=== PATIENT | female | born 1995 | race Caucasian/White ===

== ENCOUNTER 2019-03-12 09:48 | Inpatient (IN) | payer SELFPAY ==
[2019-03-12] VITALS (17 sets, daily range): BP systolic 91–177; BP diastolic 52–115; PULSE 70–99; RESP 14–21; TEMP 36.1–37.1; O2SAT 96–100; BMI 29.2
--- NOTE | 2019-03-12 | PLAC_PTH ---
PATIENT: ROBIN ORTEGA LOC: [facility] U#:[id number] AGE/SX: 24/F ROOM: [facility]012 RE03/12/[address]: Dr. Oly Adams MD : [id number] BED: 1 DIS: 03/14/2019 SPEC #: [id number] RECD: 03/12/19 15:29 STATUS: JESSICA CANELO #: [id number] ARTHUR: 03/12/19 00:[address]: Oly Adams DEPT: SURGICAL PATHOLOGY RECD BY: Mukesh Flor Tissues: Placenta, NOS Procedures: Surgery Specimen Level V HEADER OPERATION: section PRE-OP DIAGNOSIS: Eclampsia TISSUE SUBMITTED: Placenta MICROSCOPIC DIAGNOSIS Chiu placenta (597 gm): Umbilical cord - trivascular with no inflammation. Placental membranes - no pathologic change. Placental disc - remote infarct, organizing intraparenchymal hemorrhage and Sandrine-Rahul change. AM:jie 03/15/19 MICROSCOPIC DESCRIPTION Slides are reviewed. GROSS DESCRIPTION SPECIMEN: PLACENTA / CLINICAL INFORMATION: A. Weight: 4.336 kg B. Gestational Age: 40 weeks C. Sex: Male PLACENTAL WEIGHT (POST FIXATION): 597 gm PLACENTAL DIMENSIONS: 18 x 17.5 x 3 cm PLACENTAL SHAPE: Usual ovoid PLACENTAL WEIGHT FOR GESTATIONAL AGE: Within 10-99th percentile MEMBRANES - Present A. Insertion: Marginal B. Site of rupture from edge: At of placental disc C. Color of membrane: Taylor-mak D. Abnormalities: None UMBILICAL CORD - Present A. Color: Taylor-mak B. Insertion: Eccentric C. Length: 43 cm D. Diameter: 1.5 cm E. Number of vessels: Three F. Abnormalities: None PLACENTAL DISC - Present A. Color of surface: Taylor-mka B. surface abnormalities: None C. Maternal cotyledons: Intact with minimal tears D. Attached retro placental clot: No clot E. Cut surface: Dark red and spongy F. Lesions: Two taylor-white lesions ranging in size from 1 to 2.5 cm. G. Separate clot: Absent SECTIONS SUBMITTED: 1. Umbilical cord ( end notched) 2. Membrane roll, lesion 3. Placental disc, and maternal surfaces 4. Placental disc, and maternal surfaces 5. Placental disc, and maternal surfaces, largest lesion AM:jie 03/14/19 TC:5 CPT: 63983
[2019-03-12] MEDS: Lactated Ringers 1,000 ML 999 ML IV (09:50)
[2019-03-12] MEDS: Midazolam 2 MG/2 ML Syringe IV (10:10)
[2019-03-12 10:14] LABS: Absolute Lymphocyte Count 2.42 X10^3/ul (0.83-4.51); Absolute Neutrophil Count 12.5 X10^3/uL (2.0-7.7); Basophil# 0.02 X10^3/uL; Basophil% 0.1 % (0-1); Hematocrit 39.9 % (37-47); Hemoglobin 13.8 g/dl (12.0-15.0); Lymphocyte # 2.42 X10^3/ul (4.0); Lymphocyte % 15.4 % (19-41); Mean Corp Hgb Conc 34.6 g/gl (32-36); Mean Corpuscular Hgb 31.7 pg (27.0-32.0); Mean Corpuscular Volume 91.5 fL (81-99); Mean Platelet Vol. 11.5 fl (6.2-12.0); Monocyte# 0.73 X10^3/uL; Monocyte% 4.6 % (0-10); Neutrophil # 12.48 X10^3/uL (2.7-7.7); Neutrophil % 79.3 % (47-70); Platelet Count 181 K/mm3 (150-450); RBC Distribution Width CV 12.8 % (11.6-14.6); RBC Distribution Width SD 42.5 fl (35.1-43.9); Red Blood Count 4.36 M/mm3 (4.2-5.4); White Blood Count 15.8 K/mm3 (4.4-11.0)
[2019-03-12 10:16] LABS: POSITIVE COUNT NO; POSITIVE DIFFERENTIAL NO; POSITIVE MORPHOLOGY NO
[2019-03-12 10:24] LABS: Prothrombin Time (Protime)PT. 13.2 SECONDS (11.7-14.9)
[2019-03-12] MEDS: Magnesium Sulfate 20 GM/500 ML BAG IV ×2 (10:26→20:41)
[2019-03-12 10:27] LABS: AST(SGOT) 39 U/L (15-37); Alanine Aminotransfer ALT/SGPT 39 U/L (13-56); Creatinine, Serum 0.94 mg/dL (0.55-1.02); EST Glomerular Filtration Rate 78 mL/min (>60); Est Glom Filt Rate - Afr Amer 95 mL/min (>60); Uric Acid 6.2 mg/dL (2.6-6.0)
[2019-03-12 10:33] LABS: ALB/GLOB Ratio 0.7 RATIO (0.9-2.4); AST(SGOT) 37 U/L (15-37); Alanine Aminotransfer ALT/SGPT 40 U/L (13-56); Albumin, Serum 3.1 g/dL (3.2-5.0); Alkaline Phosphatase 222 U/L (45-117); Anion Gap 15 (5-15); BUN 11 mg/dL (7-18); BUN/Creat Ratio 11.4 RATIO (10-20); Calcium,Total 8.3 mg/dL (8.5-10.1); Chloride 108 mmol/L (98-107); Creatinine, Serum 0.96 mg/dL (0.55-1.02); EST Glomerular Filtration Rate 76 mL/min (>60); Est Glom Filt Rate - Afr Amer 92 mL/min (>60); Globulin 4.2 g/dL (2.2-4.2); Glucose 105 mg/dL (74-106); Potassium 3.2 mmol/L (3.5-5.1); Protein, Total 7.3 g/dL (6.4-8.2); Sodium Level 137 mmol/L (136-145)
[2019-03-12] MEDS: CHLORHEXIDINE GLUC 2% CLOTH 1 EACH TOWELETTE TOPICAL (10:50)
[2019-03-12 10:51] LABS: Bacteria 0 SEEN /hpf (None Seen); Mucous, Urine 0 SEEN /hpf (<or=2+); Red Blood Cells-Urine 0 SEEN /hpf (0-5); Squamous Epithelial Cells - UA 0 SEEN /hpf (5-10); White Blood Cells 0 SEEN /hpf (0-5)
--- NOTE | 2019-03-12 10:55 | PCM.HP.OB ---
- Problem List (1) Eclampsia Status: Acute History Date of Admission: 03/12/19 Final MICHAEL: 03/11/19 Gestational age: 40 Weeks and 1 Days History of this : This is a 24 year-old, at 40 weeks gestational age presents with eclampsia. Patient received care from a exhibit display representative in the community and had had no issues during the prior to the onset of labor yesterday. Patient presented with spontaneous rupture of membranes at 4 AM yesterday and began isaac yesterday evening. Patient was monitored by the exhibit display representative and this morning started to have headache and blood pressure was checked and noted to be 170/130 so the exhibit display representative called to transfer care to the hospital. Upon presentation to the hospital patient began actively seizing. She was caught by her and the wire turning machine operator and then supportive staff arrived. IV was started almost immediately and 6 g bolus of IV magnesium was given and during the end of the bolus patient had a repeat seizure for 2-1/2 minutes. 2 mg of Versed was given IV x1 due to the recurrent seizure and the magnesium was running at 2 g an hour now. heart rate initially was in the 85-90s medially after the first seizure and then recovered into the 130s. Bedside ultrasound was performed and the infant was noted to be vertex and the heart rate was confirmed visually and breathing was also noted at this time. heart rate tracing was reassuring. There were no decelerations with the recurrent seizure. Allergies No Known Allergies Allergy (Verified 03/12/19 10:44) Smoking Status: Never smoker Alcohol: None Number of Fetus(es): 1 Heart Tracins moderate variability positive acceleration and positive breathing seen on initial ultrasound. Initial deceleration with good recovery afterwards and now a category 1 tracing. [place]: No regular contractions internal monitors placed History Past Pregnancies: Past Pregnancies Delivery Date Name GA/Weeks Outcome Route Weight Gender Labor Length Anesthesia Delivery Location Provider FOB Expected Delivery Method: Primary Section Review of Systems Constitutional: Denies: Fever, Malaise Eyes: Denies: Blurred vision, Vision Change HEENT: Reports: Head Aches. Denies: Visual Changes Respiratory: Denies: Cough, Shortness of Breath, Wheezing Gastrointestinal: Reports: Abdominal Pain. Denies: Diarrhea, Nausea, Vomiting Genitourinary: Denies: Dysuria, Hematuria Gynecological: Reports: Vaginal discharge. Denies: Vaginal bleeding Musculoskeletal: Denies: Joint Pain, Muscle pain Skin: Denies: Lesions, Rash Neurological: Reports: Headaches. Denies: Blurred vision, Focal weakness Physical Exam General: Confused, Disoriented, Lethargic HEENT: Atraumatic, Normocephalic, - - Bilateral pupils dilated. Negative for: Thyromegaly, Lymphadenopathy Cardiovascular: Tachycardic Lungs: Normal air movement Abdomen: Soft, Non Tender, Gravid Neurological: Neuro grossly intact. Negative for: Deep Tendon Reflexes 2+/4 and Symmetrical - 3+ reflexes no clonus, Clonus BOOMSWING OPERATOR: Normal external genitalia. Negative for: Vulvar lesions Estimated gestational size: Appropriate for gestational size Presentation: Cephalic Cervix Dilation (cm): 4 - 70 Station: -1 Effacement (%): 70 Assessment/Plan All Active Problems Eclampsia (Acute) This is a 24 year-old, at 37 weeks gestational age presents with eclampsia Patient given 6 g magnesium bolus followed by 2 g an hour of magnesium. 2 IV lines started and scalp and IUPC placed. Initial blood pressure was severely elevated and she was given 20 mg of IV labetalol. Patient had recurrent seizure during the end of the 6 g bolus for 2-1/2 minutes therefore 2 mg of Versed IV was given. No bradycardia was noted during the second seizure. Called and discussed case with maternal medicine and discussed with exhibit display representative and the family about decision for expectant management versus proceeding with a primary . Due to the recurrent seizure and patient is not currently isaac and may be remote from delivery, the decision was made to proceed with a primary low transverse . I discussed with the family the ability to provide a trial of labor after for her next will be very reasonable. Proceed with delivery and then will continue magnesium for 24-48 hours after delivery and monitor blood pressures. I recommend a CT scan of the head which I will also order
--- NOTE | 2019-03-12 10:59 | HP.PCM_ITS ---
- Problem List (1) Eclampsia Status: Acute History Date of Admission: 03/12/19 Final MICHAEL: 03/11/19 Gestational age: 40 Weeks and 1 Days History of this : This is a 24 year-old, at 40 weeks gestational age presents with eclampsia. Patient received care from a visual display associate in the community and had had no issues during the prior to the onset of labor yesterday. Patient presented with spontaneous rupture of membranes at 4 AM yesterday and began isaac yesterday evening. Patient was monitored by the visual display associate and this morning started to have headache and blood pressure was checked and noted to be 170/130 so the visual display associate called to transfer care to the hospital. Upon presentation to the hospital patient began actively seizing. She was caught by her and the wedding photographer and then supportive staff arrived. IV was started almost immediately and 6 g bolus of IV magnesium was given and during the end of the bolus patient had a repeat seizure for 2-1/2 minutes. 2 mg of Versed was given IV x1 due to the recurrent seizure and the magnesium was running at 2 g an hour now. heart rate initially was in the 85-90s medially after the first seizure and then recovered into the 130s. Bedside ultrasound was performed and the infant was noted to be vertex and the heart rate was confirmed visually and breathing was also noted at this time. heart rate tracing was reassuring. There were no decelerations with the recurrent seizure. Allergies No Known Allergies Allergy (Verified 03/12/19 10:44) Smoking Status: Never smoker Alcohol: None Number of Fetus(es): 1 Heart Tracins moderate variability positive acceleration and positive breathing seen on initial ultrasound. Initial deceleration with good recovery afterwards and now a category [address] [place]: No regular contractions internal monitors placed History Past Pregnancies: Past Pregnancies Delivery Date Name GA/Weeks Outcome Route Weight Gender Labor Length Anesthesia Delivery Location Provider FOB Expected Delivery Method: Primary Section Review of Systems Constitutional: Denies: Fever, Malaise Eyes: Denies: Blurred vision, Vision Change HEENT: Reports: Head Aches. Denies: Visual Changes Respiratory: Denies: Cough, Shortness of Breath, Wheezing Gastrointestinal: Reports: Abdominal Pain. Denies: Diarrhea, Nausea, Vomiting Genitourinary: Denies: Dysuria, Hematuria Gynecological: Reports: Vaginal discharge. Denies: Vaginal bleeding Musculoskeletal: Denies: Joint Pain, Muscle pain Skin: Denies: Lesions, Rash Neurological: Reports: Headaches. Denies: Blurred vision, Focal weakness Physical Exam General: Confused, Disoriented, Lethargic HEENT: Atraumatic, Normocephalic, - - Bilateral pupils dilated. Negative for: Thyromegaly, Lymphadenopathy Cardiovascular: Tachycardic Lungs: Normal air movement Abdomen: Soft, Non Tender, Gravid Neurological: Neuro grossly intact. Negative for: Deep Tendon Reflexes 2+/4 and Symmetrical - 3+ reflexes no clonus, Clonus BEHAVIORAL MODIFICATION ASSISTANT: Normal external genitalia. Negative for: Vulvar lesions Estimated gestational size: Appropriate for gestational size Presentation: Cephalic Cervix Dilation (cm): 4 - 70 Station: -1 Effacement (%): 70 Assessment/Plan All Active Problems Eclampsia (Acute) This is a 24 year-old, at 37 weeks gestational age presents with eclampsia Patient given 6 g magnesium bolus followed by 2 g an hour of magnesium. 2 IV lines started and scalp and IUPC placed. Initial blood pressure was severely elevated and she was given 20 mg of IV labetalol. Patient had r ecurrent seizure during the end of the 6 g bolus for 2-1/2 minutes therefore 2 mg of Versed IV was given. No bradycardia was noted during the second seizure. Called and discussed case with maternal medicine and discussed with visual display associate and the family about decision for expectant management versus proceeding with a primary . Due to the recurrent seizure and patient is not currently isaac and may be remote from delivery, the decision was made to proceed with a primary low transverse . I discussed with the family the ability to provide a trial of labor after for her next will be very reasonable. Proceed with delivery and then will continue magnesium for 24-48 hours after delivery and monitor blood pressures. I recommend a CT scan of the head which I will also order
--- NOTE | 2019-03-12 11:10 | PCM.OPRPT ---
Problem List (1) Eclampsia Status: Acute Report of Operation Date of Procedure: 03/12/19 Pre-Operative Diagnosis: Eclampsia with recurrent seizure Post-Operative Diagnosis: Same Surgery/Procedure Performed:: Primary low transverse Description of Surgical Findings:: Male vertex presentation weighing 9 pounds 9 ounces with Apgars of 8 and 8, uterine atony with mild hemorrhage retail shift leader: Mitesh Flannery Type of Anesthesia:: General Special Medications: magnesium, pitocin, hemabate x 2 Specimen's removed: male Drains: guan Estimated Blood Loss (mL): 1300 Fluids Replaced: crystalloid Description of Procedure: 24-year-old presented at 40 weeks 1 day with acute eclampsia. Patient initially presented with seizure and severely elevated blood pressures in the 170s over 130s, after patient was stabilized and received a 6 g magnesium bolus she had a recurrent seizure and was given Versed for this. She was continued on 2 g of magnesium sulfate and it was discussed with the family and her traction power engineer expectant management for vaginal delivery versus immediate . Was also discussed with maternal medicine and section was encouraged. Patient week but had limited interaction due to the postictal state. Family agreed to proceed with a primary low transverse due to being in labor over 24 hours with rupture of membranes and still being remote from delivery with recurrent seizures due to eclampsia present. Patient was placed in the dorsal supine position with leftward tilt. Patient was prepped and draped in the normal sterile fashion. Pfannenstiel skin incision was made with the scalpel and carried through to the underlying layer of fascia with the scalpel. Fascia was nicked in the midline and the incision extended laterally. The rectus bellies were dissected off superiorly and inferiorly with out complication both sharply and bluntly. The peritoneum was entered digitally. The incision was stretched and a low transverse uterine incision was made with the scalpel. The infant's head was delivered atraumatically followed by the anterior and posterior shoulders without complication the rest of the infant delivered. The cord was clamped and cut and the infant was handed off to awaiting nurse. The placenta was delivered spontaneously immediately following and was noted to be intact and have a three-vessel cord. The uterus was exteriorized cleared of all clots and debris, and the incision was closed in a double layer closure using #1 Monocryl. Severe bogginess and atony was noted and bimanual massage was employed and 2 doses of Hemabate were given as well as Pitocin through the IV which then resulted in increased uterine tone. The uterus was returned to the maternal abdomen and gutters were cleared of all clots and debris. The ovaries and fallopian tubes were noted to be within normal limits. The peritoneum was closed with 3-0 Monocryl in a running fashion. Fascia was closed with 0 PDS in a running fashion. Subcutaneous tissue was copiously irrigated and the skin was closed with 3-0 Monocryl in a subcuticular fashion. Steri-Strips and Mepilex dressing were applied without complication. Patient was taken to recovery in stable condition. Grafts/Implants Used: none - Complications mild hemorrhage secondary to atony - Admit VTE Documentation VTE Present on Admission: No VTE Mechan Device Prophylaxis: SCD's VTE Pharm Prophylaxis ordered?: No
[2019-03-12 11:13] LABS: Color, Urine Yellow (Yellow); Glucose, Dipstick Normal (Normal); Ketone-Dipstick Negative (Negative); Leukocyte Esterase-Dipstick Negative /ul (Negative); Nitrite-Dipstick Negative (Negative); Occult Blood-Urine 10 /ul (Negative); Protein-Dipstick 100 mg/dl (Negative); Urine Bilirubin Dipstick Negative (Negative); Urine Clarity Clear (Clear); Urine Urobilinogen Normal (Normal)
[2019-03-12] MEDS: Cefazolin 2 GM in 0.9% Normal Saline 100 ML IV (11:21)
[2019-03-12 11:22] LABS: Protein, Urine (Random) 92.2 mg/dL (<11.9); Protein:Creat Ratio 929 mg/g CRE (0-200)
[2019-03-12 11:23] LABS: Amphetamine Urine VISTA NEGATIVE (<1000 ng/mL); Barbiturate Urine VISTA NEGATIVE (< 200 ng/mL); Benzodiazepine Urine VISTA NEGATIVE (< 200 ng/mL); Cocaine Urine VISTA NEGATIVE (< 300 ng/mL); Ecstacy Urine VISTA NEGATIVE (< 500 ng/mL); Methadone Urine VISTA NEGATIVE (< 300 ng/mL); PCP Urine VISTA NEGATIVE (< 25 ng/mL); THC Urine VISTA NEGATIVE (< 50 ng/mL); Vista UDS pH Range 5
[2019-03-12] MEDS: Oxytocin 30 units/NS 500 ml 30 UNITS/500 ML IV.SOLN 167 UNITS IV (11:24)
[2019-03-12] MEDS: Carboprost Tromethamine 250 MCG/ML Ampul IM ×2 (11:25→11:40)
[2019-03-12 11:26] LABS: Amorphous Sediment 1+
--- NOTE | 2019-03-12 11:49 | CASEMGMT ---
Social Work: This SW responded to AD OPERATIONS COORDINATOR in [facility]. Patient's (Ray) and mother in law both present. Spent time with and mother in law providing support. Patient's asking that I try to contact patient's parents. provided a number for this SW to call for a contact named Gregory that would be able to contact parents. TC to phone number and left message. Spoke with patient's nail making machine setter Ann Rolly # who states that she will go get patient's parents if we are unable to contact Gregory. Ann asking that this SW call her if Gregory is contacted. Ann also giving SW permission to give her number to Gregory. This SW did receive call back from Gregory who states that he will contact patient's parents and arrange for them to get to [facility]. Gregory asking for Ann Lofton's (nail making machine setter) phone number. Number provided. TC to Ann Lofton. Ann aware that Gregory will attempt to contact patient's parents and arrange for them to come to [facility]. Ann aware that this SW is available if additional needs arise. [facility] staff aware to call this SW for any additional needs that the patient or family may have. LIVAN Christianson
--- NOTE | 2019-03-12 12:34 | CT_ITS ---
STUDY: CT BRAIN WITHOUT CONTRAST REASON FOR EXAM: Female, 24 years old. History of seizure. RADIATION DOSAGE (If Supplied By Facility): CTDIvol = ( 44.99 ) mGy, DLP = ( 748.30 ) mGycm TECHNIQUE: Transaxial CT imaging of the brain was performed without administration of intravenous contrast material. Individualized dose optimization techniques were used for this CT. COMPARISON: No relevant priors. FINDINGS: Normal soft tissue structures. Normal calvarium. Normal size ventricles and extra-axial spaces for the patient's age. Normal white matter tracts of the cerebral hemispheres. Normal basal ganglia and thalami. Normal brainstem. Normal cerebellum. There is no intracranial hemorrhage. There are no findings of an acute ischemic infarction. Normal visualized paranasal sinuses. CT/Brain/Head without Contrast IMPRESSION: Normal unenhanced CT scan of the brain. Electronically Signed: He Jama, at 14:04 EDT , Service support ,
[2019-03-12 12:35] LABS: Chlamydia Trachomatis by PCR Negative (Negative); Neisserai gonorrhoeae by PCR Negative (Negative); Probe Check PASS; Sample Adequacy Control PASS; Specimen Processing Control PASS
[2019-03-12] MEDS: Lactated Ringers 1,000 ML 150 ML IV (12:38)
[2019-03-12] MEDS: 0.9% Saline Lock 10 ML Syringe IV (12:39)
[2019-03-12] MEDS: Labetalol 200 MG Tablet PO (14:28)
--- NOTE | 2019-03-12 17:23 | PCM.PN.BLA ---
Progress Note bps stable, pain fairly controlled, discussed etails of delivery with patient including eclampsia and hemorrhage. questions answered, will repeat labd in 30 minutes and continue 200mg labetalol po bid.
[2019-03-12] MEDS: Ketorolac 30 MG/ML Syringe IV (18:12)
[2019-03-12 18:37] LABS: ALB/GLOB Ratio 0.8 RATIO (0.9-2.4); AST(SGOT) 29 U/L (15-37); Alanine Aminotransfer ALT/SGPT 24 U/L (13-56); Albumin, Serum 1.9 g/dL (3.2-5.0); Alkaline Phosphatase 124 U/L (45-117); Anion Gap 8 (5-15); BUN 9 mg/dL (7-18); BUN/Creat Ratio 13.4 RATIO (10-20); Calcium,Total 7.1 mg/dL (8.5-10.1); Chloride 107 mmol/L (98-107); Creatinine, Serum 0.67 mg/dL (0.55-1.02); EST Glomerular Filtration Rate 115 mL/min (>60); Est Glom Filt Rate - Afr Amer 140 mL/min (>60); Globulin 2.5 g/dL (2.2-4.2); Glucose 137 mg/dL (74-106); Potassium 3.4 mmol/L (3.5-5.1); Protein, Total 4.4 g/dL (6.4-8.2); Sodium Level 135 mmol/L (136-145)
[2019-03-12 18:54] LABS: Absolute Lymphocyte Count 0.96 X10^3/ul (0.83-4.51); Absolute Neutrophil Count 10.2 X10^3/uL (2.0-7.7); Basophil# 0.01 X10^3/uL; Basophil% 0.1 % (0-1); Hematocrit 23.8 % (37-47); Hemoglobin 8.4 g/dl (12.0-15.0); Lymphocyte # 0.96 X10^3/ul (4.0); Lymphocyte % 7.9 % (19-41); Mean Corp Hgb Conc 35.3 g/gl (32-36); Mean Corpuscular Hgb 31.6 pg (27.0-32.0); Mean Corpuscular Volume 89.5 fL (81-99); Monocyte# 0.93 X10^3/uL; Monocyte% 7.7 % (0-10); Neutrophil # 10.19 X10^3/uL (2.7-7.7); Neutrophil % 84.1 % (47-70); Platelet Count 132 K/mm3 (150-450); RBC Distribution Width CV 12.1 % (11.6-14.6); RBC Distribution Width SD 37.7 fl (35.1-43.9); Red Blood Count 2.66 M/mm3 (4.2-5.4); White Blood Count 12.1 K/mm3 (4.4-11.0)
[2019-03-12 19:35] LABS: POSITIVE COUNT NO; POSITIVE DIFFERENTIAL NO; POSITIVE MORPHOLOGY NO
[2019-03-12] MEDS: Lactated Ringers 1,000 ML 25 ML IV (20:45)
[2019-03-13] VITALS (15 sets, daily range): BP systolic 104–137; BP diastolic 50–85; PULSE 76–103; RESP 12–18; TEMP 36.7–37.4; O2SAT 97–99
[2019-03-13] MEDS: Ketorolac 30 MG/ML Syringe IV ×5 (00:06→23:58)
[2019-03-13] MEDS: 0.9% Saline Lock 10 ML Syringe IV ×6 (00:06→23:58)
[2019-03-13 06:36] LABS: Hemoglobin 7.3 g/dl (12.0-15.0); Mean Corp Hgb Conc 34.8 g/gl (32-36); Mean Corpuscular Hgb 31.5 pg (27.0-32.0); Mean Corpuscular Volume 90.5 fL (81-99); Mean Platelet Vol. 11.1 fl (6.2-12.0); Platelet Count 138 K/mm3 (150-450); RBC Distribution Width CV 12.6 % (11.6-14.6); RBC Distribution Width SD 39.1 fl (35.1-43.9); Red Blood Count 2.32 M/mm3 (4.2-5.4); White Blood Count 9.5 K/mm3 (4.4-11.0)
[2019-03-13 06:38] LABS: Scan Indicated on CBC? Y/N NO
[2019-03-13] MEDS: Magnesium Sulfate 20 GM/500 ML BAG IV (06:50)
[2019-03-13 07:11] LABS: ALB/GLOB Ratio 0.7 RATIO (0.9-2.4); AST(SGOT) 27 U/L (15-37); Alanine Aminotransfer ALT/SGPT 23 U/L (13-56); Albumin, Serum 1.9 g/dL (3.2-5.0); Alkaline Phosphatase 114 U/L (45-117); Anion Gap 4 (5-15); BUN 11 mg/dL (7-18); BUN/Creat Ratio 14.5 RATIO (10-20); Chloride 109 mmol/L (98-107); Creatinine, Serum 0.76 mg/dL (0.55-1.02); EST Glomerular Filtration Rate 101 mL/min (>60); Est Glom Filt Rate - Afr Amer 122 mL/min (>60); Estimated Creatinine Clearance 82.69 ml/min; Globulin 2.6 g/dL (2.2-4.2); Glucose 118 mg/dL (74-106); Potassium 3.7 mmol/L (3.5-5.1); Protein, Total 4.5 g/dL (6.4-8.2); Sodium Level 137 mmol/L (136-145)
[2019-03-13 10:34] LABS: Hemoglobin 7.2 g/dl (12.0-15.0)
[2019-03-13] MEDS: Lactated Ringers 1,000 ML 100 ML IV (10:38)
--- NOTE | 2019-03-13 10:42 | NURSING ---
Magnesium Sulfate D/C at 1030 per Physician order
[2019-03-13] MEDS: Labetalol 200 MG Tablet PO (22:05)
--- NOTE | 2019-03-14 00:24 | NURSING ---
pt voided twice since guan catheter removed and missed hat; to measure next voids and instructed to void in hat if possible
[2019-03-14 02:30] VITALS: BP 112/53; PULSE 76; RESP 18; TEMP 36.8
--- NOTE | 2019-03-14 02:50 | PCM.PN.OB ---
Patient Problems: Active and Suspected Problems Eclampsia (Acute) Anemia associated with acute blood loss (Acute) Subjective: late entry- patient seen at 815 03/13/19 doing well no complaints pain controlled no CP SOB N V ambulating well tolerating po lochia moderate, going well no headache blurry vision, some dizziness initially - Physical Exam General: Alert, Oriented x3 Lungs: Normal air movement Cardiovascular: Regular rate Abdomen: Soft, Non Tender Neurological: Deep Tendon Reflexes 2+/4 and Symmetrical, - - no clonus Vital Signs Temp Pulse Resp BP Pulse Ox 99.3 F H 88 18 133/73 H 98 03/13/19 20:05 03/13/19 22:02 03/13/19 22:02 03/13/19 22:02 03/13/19 12:03 Oxygen Delivery Method Room Air Weight: 150 lb Body Mass Index (BMI) 29.2 Intake and Output for Last 24 Hours 03/12/19 03/13/19 03/14/19 23:59 23:59 23:59 Intake Total 1128 / 1128 1149 / 1149 Output Total 2165 / 2165 3240 / 3240 Balance -1037 / -1037 -2091 / -2091 Laboratory Tests Past 24 Hrs 03/13/19 03/13/19 03/13/19 06:15 06:15 10:15 WBC 9.5 RBC 2.32 L Hgb 7.3 L 7.2 L Hct 21.0 L MCV 90.5 MCH 31.5 MCHC 34.8 RDW 12.6 RDW Differential 39.1 Plt Count 138 L MPV 11.1 Sodium 137 Potassium 3.7 Chloride 109 H Carbon Dioxide 24.0 Anion Gap 4 L BUN 11 Creatinine 0.76 Estim Creat Clear Calc 82.69 Est GFR (MDRD) Af Amer 122 Est GFR (MDRD) Non-Af 101 BUN/Creatinine Ratio 14.5 Glucose 118 H Calcium 7.0 L Total Bilirubin 0.20 AST 27 ALT 23 Alkaline Phosphatase 114 Total Protein 4.5 L Albumin 1.9 L Globulin 2.6 Albumin/Globulin Ratio 0.7 L Medical Necessity - Tobacco Use Smoking Status: Never smoker Assessment/Plan All Active Problems Eclampsia (Acute) Anemia associated with acute blood loss (Acute) 24-year-old status post primary low transverse for eclampsia with recurrent seizures postop day #1 1. Eclampsia?patient diuresing well, urine output over 100 cc an hour sometimes so we will discontinue magnesium after 24 hours. Labetalol held due to low blood pressures. Continue to monitor. 2. Anemia secondary to acute blood loss from surgery?repeat hemoglobin at noon. Repeat value stable and patient asymptomatic now with ambulation. 3. Routine postoperative care 4. Patient refusing vaccines 5. CT scan of the head within normal limits. 6. Breast-feeding
[2019-03-14] MEDS: Ketorolac 30 MG/ML Syringe IV ×2 (05:44→12:25)
[2019-03-14] MEDS: 0.9% Saline Lock 10 ML Syringe IV ×2 (05:44→12:30)
[2019-03-14 07:45] VITALS: BP 123/60; PULSE 78; RESP 16; TEMP 36.8
--- NOTE | 2019-03-14 10:24 | PCM.PN.OB ---
Patient Problems: Active and Suspected Problems Anemia associated with acute blood loss (Acute) Eclampsia (Acute) Subjective: doing well no complaints pain controlled no CP SOB N V ambulating well tolerating po lochia moderate, going well no headaches blurry vision - Physical Exam General: Alert, Oriented x3 Vital Signs Temp Pulse Resp BP Pulse Ox 98.3 F 78 16 123/60 H 98 03/14/19 07:45 03/14/19 07:45 03/14/19 07:45 03/14/19 07:45 03/13/19 12:03 Oxygen Delivery Method Room Air Weight: 150 lb Body Mass Index (BMI) 29.2 Intake and Output for Last 24 Hours 03/12/19 03/13/19 03/14/19 23:59 23:59 23:59 Intake Total 1128 / 1128 1149 / 1149 Output Total 2165 / 2165 3240 / 3240 400 / 400 Balance -1037 / -1037 -2091 / -2091 -400 / -400 Laboratory Tests Past 24 Hrs 03/13/19 10:15 Hgb 7.2 L Medical Necessity - Tobacco Use Smoking Status: Never smoker Assessment/Plan All Active Problems Anemia associated with acute blood loss (Acute) Eclampsia (Acute) 24-year-old status post primary low transverse for eclampsia with recurrent seizures postop day #2 1. Eclampsia?patient diuresing well, urine output over 100 cc an hour sometimes so we will discontinue magnesium after 24 hours. Labetalol held due to low blood pressures. Continue to monitor. all normal bps 2. Anemia secondary to acute blood loss from surgery?repeat hemoglobin at noon. Repeat value stable and patient asymptomatic now with ambulation. 3. Routine postoperative care 4. Patient refusing vaccines 5. CT scan of the head within normal limits. 6. Breast-feeding
[2019-03-14] MEDS: Labetalol 200 MG Tablet PO (10:25)
--- NOTE | 2019-03-14 10:50 | CASEMGMT ---
SOCIAL WORK NOTE UPDATED [facility] DOES NOT HAVE CAR SEAT FOR BABY. CALL TO [facility]'S MECHANICAL DETAILER, ESTEVAN ZHAO ([phone]) TO INQUIRE ABOUT OBTAINING CAR SEAT. ESTEVAN REPORTS DOES HAVE CAR SEAT AND WILL ATTEMPT TO FIND SOMEONE TO DROP OFF CAR SEAT TO HOSPITAL. UPDATED NURSING. HAY WARE, WAREHOUSE WORKER, DIRECTOR OF OPERATIONS SUPPORT.
--- NOTE | 2019-03-14 10:51 | DCINST_ITS ---
Discharge Diet: No Restrictions Discharge Activity: May Not Drive - for 2 weeks, May not drive while taking narcotic pain medications., May Shower, May Take a Tub Bath - in 7 days May resume sexual activity in: 4-6 weeks Lifting Restrictions: 20 pounds Additional Activity Instructions:: Nothing in the vagina for 4-6 weeks. You may return to work/school in 6 weeks. Call your doctor if your incision/area has: Continuous Slow Oozing, Sudden Increased Bleeding, Increased Pain/ Swelling, Increased Redness, Foul Smelling Discharge Call your doctor if you observe: Fever of 101 or Higher, Using more than one pad per hour - for 2 hours Suture Line Care: Avoid Pulling/Pushing, Avoid Pinching/Bending Cleanse incision/area with: Keep Dressing Clean & Dry Additional Instructions: If you experience any of the following, contact your healthcare provider. * Bleeding that soaks a pad every hour for 2 hours * Fever 100.4 or higher * Unrelieved incision or abdominal pain * Swelling, redness, discharge or bleeding from your incision or episiotomy site * Your incision begins to separate * Problems urinating (including inability to urinate or burning while urinating). * Visual changes * Severe headache * Flu-like symptoms * Pain or redness in one of both of your breasts * Pain, warmth, tenderness or swelling in your legs, especially the calf area * Frequent nausea and vomiting * Symptoms of depression or anxiety If you experience any of the following, call 911 or go to the nearest Emergency Room. * Chest pain * Problems breathing * Seizure activity * Partial or complete paralysis of a body part, slurred speech, weakness or drooping of the face, or a sudden inability to walk or hold your balance Allergies/Adverse Reactions: Allergies No Known Allergies Allergy (Verified 03/12/19 10:44) Medications to take at Discharge [place] 250 mg PO 03/12/19 Calcium Carbonate [Calcium] 500 mg PO 03/12/19 Vits [Prenatabs FA] 1 tablet PO DAILY 03/12/19 Naproxen [Naprosyn] 250 - 500 mg PO Q8H PRN PRN #30 tablet 03/14/19 Oxycodone HCl/Acetaminophen [Percocet 5-325] 1 - 2 tablet PO Q4H PRN PRN 7 Days #20 tablet 03/14/19 The following prescriptions were given: Oxycodone HCl/Acetaminophen [Percocet 5-325] 1 - 2 tablet PO Q4H PRN PRN 7 Days #20 tablet PRN Reason: Pain Naproxen [Naprosyn] 250 - 500 mg PO Q8H PRN PRN #30 tablet PRN Reason: MILD PAIN Follow-Up: Call to make an appointment with your doctor for an incision check in 1-2 weeks. You will also need a 6 week post- follow up appointment. Test results from this visit will be discussed in further detail at your follow- up appointment, if applicable. Please Follow Up With: Oly Adams MD - Call to make an appointment for an incision check in 1-2 [phone] When: You will need a post- check in 6 weeks.
--- NOTE | 2019-03-14 12:30 | CASEMGMT ---
SOCIAL WORK NOTE CALL TO [employer]S VARNISHING UNIT OPERATOR TO INQUIRE ABOUT STATUS OF CAR SEAT. ESTEVAN REPORTS FRIEND IS TO BE DROPPING OFF CAR SEAT TO HOSPITAL. CALL TO NURSING, CAR SEAT HAS NOT BEEN DROPPED OFF AT THIS TIME. INFORMED SOMEONE IS TO BE BRINGING IN CAR SEAT FOR BABY. HAY WARE, PUBLICITY PERSON, MEDICAL SALES ASSOCIATE.
[2019-03-14 14:00] VITALS: BP 128/71; PULSE 88; RESP 16; TEMP 37.4
[2019-03-14 16:36] LABS: Hep B Surface Antibodies Non Reactive (.)
[2019-03-15 15:58] LABS: Pathology Specimen OB SEE PATHOLOGY REPORT
== END 2019-03-14 15:30 | disposition home or self-care (01) | DRG 787 ==
PROVIDERS: Admitting Provider Obstetrics & Gynecology; Referring Provider Obstetrics & Gynecology; Visit Provider Obstetrics & Gynecology
DX: O15.1 Eclampsia complicating labor (principal); O72.1 Other immediate postpartum hemorrhage; D62 Acute posthemorrhagic anemia; O99.354 Diseases of the nervous system complicating childbirth; O48.0 Post-term pregnancy; Z3A.40 40 weeks gestation of pregnancy; Z37.0 Single live birth; O90.81 Anemia of the puerperium; G40.909 Epilepsy, unspecified, not intractable, without status epilepticus
CPT/HCPCS: 59025; 59050; 70450; 76815; 80053; 80307; 81001; 82565; 82570; 84156; 84450; 84460; 84550; 85018; 85025; 85027; 85610; 85730; 86706; 86850; 86900; 87491; 87591; 88307; 99218; J7120; A4216; G0378; J2405

== ENCOUNTER 2020-06-02 03:10 | Inpatient (IN) | payer OTHER, SELFPAY ==
[2019-03-12 13:18] VITALS: BMI 29.2
--- NOTE | 2020-06-01 | PLAC_PTH ---
PATIENT: ROBIN ORTEGA LOC: [facility] U#:[id number] AGE/SX: 25/ ROOM: WP003 RE06/02/[address]: Dr. Oly Adams MD : 1995 BED: 1 DIS: 06/03/2020 SPEC #: [id number] RECD: 06/02/20 08:47 STATUS: JESSICA CANELO #: [id number] ARTHUR: 06/01/20 00:[address]: Oly Adams DEPT: SURGICAL PATHOLOGY RECD BY: Mukesh Flor ENTERED: 06/02/20 08:47 SP TYPE: PLACENTA OTHR DR: No Primary Care Phys Tissues: Placenta, NOS Procedures: Surgery Specimen Level V HEADER OPERATION: Repeat section PRE-OP DIAGNOSIS: Previous section TISSUE SUBMITTED: Placenta MICROSCOPIC DIAGNOSIS Chiu placenta (409 gm): Umbilical cord - trivascular with no inflammation. Placental membranes - no pathologic change. Placental disc - organizing intraparenchymal hemorrhage, Sandrine-Rahul change and increased intraparenchymal fibrin plaques. AM:jie 06/04/20 MICROSCOPIC DESCRIPTION Slides are reviewed. GROSS DESCRIPTION SPECIMEN: PLACENTA / CLINICAL INFORMATION: A. Weight: 3.06 kg B. Gestational Age: 38 weeks C. Sex: Female PLACENTAL WEIGHT (POST FIXATION): 409 gm PLACENTAL DIMENSIONS: 18 x 16 x 4 cm PLACENTAL SHAPE: Usual ovoid PLACENTAL WEIGHT FOR GESTATIONAL AGE: Within 10-99th percentile MEMBRANES - Present A. Insertion: The membranes are inserted in one circumference of placenta 1 to 1.5 cm away from the margin. B. Site of rupture from edge: 6 cm from edge of placental disc C. Color of membrane: Taylor-mak D. Abnormalities: None UMBILICAL CORD - Present A. Color: Taylor-mak B. Insertion: Central C. Length: 27 cm D. Diameter: 1 cm E. Number of vessels: Three F. Abnormalities: None PLACENTAL DISC - Present A. Color of surface: Taylor-mak B. surface abnormalities: The surface shows a few placental plaques. C. Maternal cotyledons: Intact with minimal tears D. Attached retro placental clot: No clot E. Cut surface: Dark red and spongy F. Lesions: Sections reveal a taylor, indurated area measuring 0.5 cm in greatest dimension. G. Separate clot: Absent SECTIONS SUBMITTED: 1. Membrane roll 2. Cord, maternal end, insertion of membrane away from the margin 3. Cord, end, insertion of membrane away from the margin, adjacent placental plaque 4. Placental disc, and maternal surfaces 5. Placental disc, and maternal surfaces 6. Placental disc, and maternal surfaces, lesion, placental plaque LUCIANA:jie 06/03/20 TC:5 CPT: 11526
[2020-06-02] VITALS (17 sets, daily range): BP systolic 97–148; BP diastolic 50–88; PULSE 72–110; RESP 16–20; TEMP 36.3–37.4; O2SAT 97–100; BMI 24.9
[2020-06-02] MEDS: Sodium Citrate/Citric Acid 30 ML UDC PO (03:20)
[2020-06-02 03:22] LABS: Basophil# 0.02 X10^3/uL; Basophil% 0.2 % (0-1); Eosinophil# 0.02 X10^3/uL; Eosinophils% 0.2 % (0-5); Hematocrit 39.9 % (37-47); Hemoglobin 13.7 g/dL (12.0-15.0); Lymphocyte % 17.2 % (19-41); Mean Corp Hgb Conc 34.3 g/dL (32-36); Mean Corpuscular Hgb 31.8 pg (27.0-32.0); Mean Corpuscular Volume 92.6 fL (81-99); Mean Platelet Vol. 11.5 fl (6.2-12.0); Monocyte# 0.63 X10^3/uL; Monocyte% 6.8 % (0-10); NRBC Flagged by Analyzer 0 % (0-5); Neutrophil # 6.96 X10^3/uL (2.7-7.7); Neutrophil % 75.1 % (47-70); Platelet Count 143 K/mm3 (150-450); RBC Distribution Width SD 43.8 fl (35.1-43.9); Red Blood Count 4.31 M/mm3 (4.2-5.4); White Blood Count 9.3 K/mm3 (4.4-11.0)
[2020-06-02] MEDS: Cefazolin 2 GM in 0.9% Normal Saline 100 ML IV (03:24)
[2020-06-02 03:26] LABS: Partial Thromboplast Time 26.5 Seconds (24.1-36.2); Prothrombin Time (Protime)PT. 12.4 SECONDS (11.7-14.9)
--- NOTE | 2020-06-02 03:27 | PCM.HP.OB ---
- Problem List (1) Abdominal pain affecting Status: Acute (2) History of delivery Status: Acute (3) Insufficient care in third trimester Status: Acute History Date of Admission: 03/12/19 Final MICHAEL: 06/11/20 Gestational age: 38 Weeks and 5 Days History of this : This is a 25 year-old, , at 38 weeks gestational age presents with acute severe abdominal pain and previous . Patient has been receiving care from a printed circuit board layout designer in the community. Her previous was complicated with eclampsia at 40 weeks that subsequently delivered via . This per the machine clerical verifier has been without complication until labor started tonight at 11:00 with regular painful contractions and increasing abdominal pain but no vaginal bleeding or loss of fluid and cervix is closed. Patient's initial blood pressure is mildly elevated but she does have some decrease in pain in between contractions Medical History: Medical History (Last Updated 06/02/20 @ 03:[address] Oly Adams MD) delivery delivered O82 Eclampsia O15.9 Allergies No Known Allergies Allergy (Verified 06/02/20 03:07) Home Medications: Home Medications [place] 250 mg PO 03/12/19 Calcium Carbonate [Calcium] 500 mg PO 03/12/19 Vits [Prenatabs FA] 1 tablet PO DAILY 03/12/19 Naproxen [Naprosyn] 250 - 500 mg PO Q8H PRN PRN #30 tablet 03/14/19 Smoking Status: Never smoker Alcohol: None Number of Fetus(es): 1 NST - FHR Rate Baby A Baseline: 140 Variability:: Moderate NST Reactive:: Appropriate for gestational age FHR Category:: Category I Uterine Activity:: no regular History Past Pregnancies: Past Pregnancies Is 40-week for eclampsia, care from the machine clerical verifier but delivered in the hospital due to complications Labs: Mom's Problem List Problem Status Onset Code Abdominal pain affecting Acute O26.899, R10.9 History of delivery Acute Z98.891 Insufficient care in third trimester Acute O09.33 Mom's Labs & Results 06/02/20 06/02/20 06/02/20 02:50 02:50 02:50 WBC 9.3 RBC 4.31 Hgb 13.7 Hct 39.9 MCV 92.6 MCH 31.8 MCHC 34.3 RDW Std Deviation 43.8 RDW Coeff of Yin 13.0 Plt Count 143 L MPV 11.5 Immature Gran % (Auto) 0.500 Neut % (Auto) 75.1 H Lymph % (Auto) 17.2 L [place] % (Auto) 6.8 Eos % (Auto) 0.2 Baso % (Auto) 0.2 Absolute Neuts (auto) 7.0 Absolute Lymphs (auto) 1.60 Nucleated RBC % 0 PT INR APTT Fibrinogen Sodium Potassium Chloride Carbon Dioxide Anion Gap BUN Creatinine Estim Creat Clear Calc Est GFR (MDRD) Af Amer Est GFR (MDRD) Non-Af BUN/Creatinine Ratio Glucose Calcium Total Bilirubin AST ALT Alkaline Phosphatase Total Protein Albumin Globulin Albumin/Globulin Ratio RPR Pending Hep Bs Antigen Hepatitis C Antibody HIV 1&2 Antibody Rubella IgG Antibody Pending Blood Type Antibody Screen 06/02/20 06/02/20 06/02/20 02:50 02:50 02:50 WBC RBC Hgb Hct MCV MCH MCHC RDW Std Deviation RDW Coeff of Yin Plt Count MPV Immature Gran % (Auto) Neut % (Auto) Lymph % (Auto) [place] % (Auto) Eos % (Auto) Baso % (Auto) Absolute Neuts (auto) Absolute Lymphs (auto) Nucleated RBC % PT 12.4 INR 1.0 APTT 26.5 Fibrinogen Pending Sodium Potassium Chloride Carbon Dioxide Anion Gap BUN Creatinine Estim Creat Clear Calc Est GFR (MDRD) Af Amer Est GFR (MDRD) Non-Af BUN/Creatinine Ratio Glucose Calcium Total Bilirubin AST ALT Alkaline Phosphatase Total Protein Albumin Globulin Albumin/Globulin Ratio RPR Hep Bs Antigen Pending Hepatitis C Antibody Pending HIV 1&2 Antibody Pending Rubella IgG Antibody Blood Type Pending Antibody Screen Pending 06/02/20 02:50 WBC RBC Hgb Hct MCV MCH MCHC RDW Std Deviation RDW Coeff of Yin Plt Count MPV Immature Gran % (Auto) Neut % (Auto) Lymph % (Auto) [place] % (Auto) Eos % (Auto) Baso % (Auto) Absolute Neuts (auto) Absolute Lymphs (auto) Nucleated RBC % PT INR APTT Fibrinogen Sodium 137 Potassium 3.9 Chloride 109 H Carbon Dioxide 19.0 L Anion Gap 9 BUN 8 Creatinine 0.75 Estim Creat Clear Calc 83.08 Est GFR (MDRD) Af Amer 123 Est GFR (MDRD) Non-Af 101 BUN/Creatinine Ratio 10.7 Glucose 96 Calcium 8.7 Total Bilirubin 0.30 AST 24 ALT 33 Alkaline Phosphatase 125 H Total Protein 6.9 Albumin 2.8 L Globulin 4.1 Albumin/Globulin Ratio 0.7 L RPR Hep Bs Antigen Hepatitis C Antibody HIV 1&2 Antibody Rubella IgG Antibody Blood Type Antibody Screen Course Did the patient receive No care? Labs HbSAg Collected on Admission Group B Strep: Collected on Admission Social History Alleged father Ray Anthony Smoking No Smoking Status Never smoker Expected Delivery Method: LAURA Section Review of Systems Constitutional: Denies: Fever, Night Sweats Eyes: Denies: Double vision HEENT: Denies: Difficulty Hearing Cardiovascular: Denies: Chest Pain Respiratory: Denies: Cough Gastrointestinal: Reports: Abdominal Pain, Nausea Genitourinary: Denies: Dysuria Gynecological: Denies: Vaginal bleeding, Vaginal discharge Musculoskeletal: Reports: Back Pain. Denies: Arm Pain Neurological: Reports: - - agitated Physical Exam Vitals: Vital Signs Temp Pulse BP Pulse Ox 97.6 F L 110 H 148/88 H 99 06/02/20 02:56 06/02/20 02:56 06/02/20 02:56 06/02/20 02:56 General: Alert, Cooperative, - - agitated HEENT: Atraumatic, Normocephalic. Negative for: Thyromegaly, Lymphadenopathy Cardiovascular: Regular rate Lungs: Normal air movement Abdomen: Soft, Gravid, Tender Extremities:: No edema Neurological: Deep Tendon Reflexes 2+/4 and Symmetrical, Neuro grossly intact. Negative for: Clonus ENGINEERING DRAFTER: Normal external genitalia. Negative for: Vulvar lesions Estimated gestational size: Appropriate for gestational size Presentation: Cephalic Assessment/Plan All Active Problems Abdominal pain affecting (Acute) History of delivery (Acute) Insufficient care in third trimester (Acute) Anemia associated with acute blood loss (Acute) Eclampsia (Acute) This is a 25 year-old, , at 38 weeks gestational age presents with acute severe abdominal pain and previous Due to severe abdominal pain suspicion for placental abruption or uterine rupture is significant and therefore recommend proceeding with repeat emergently. heart tracing reassuring so we will proceed with admittance and delivery. COVID test sent and precautions will be taken due to unknown status, CMP drawn due to history of eclampsia
[2020-06-02 03:28] LABS: ALB/GLOB Ratio 0.7 RATIO (0.9-2.4); AST(SGOT) 24 U/L (15-37); Alanine Aminotransfer ALT/SGPT 33 U/L (13-56); Albumin, Serum 2.8 g/dL (3.2-5.0); Alkaline Phosphatase 125 U/L (45-117); Anion Gap 9 (5-15); BUN 8 mg/dL (7-18); BUN/Creat Ratio 10.7 RATIO (10-20); Calcium,Total 8.7 mg/dL (8.5-10.1); Chloride 109 mmol/L (98-107); Creatinine, Serum 0.75 mg/dL (0.55-1.02); EST Glomerular Filtration Rate 101 mL/min (>60); Est Glom Filt Rate - Afr Amer 123 mL/min (>60); Estimated Creatinine Clearance 83.08 ml/min; Globulin 4.1 g/dL (2.2-4.2); Glucose 96 mg/dL (74-106); Potassium 3.9 mmol/L (3.5-5.1); Protein, Total 6.9 g/dL (6.4-8.2); Sodium Level 137 mmol/L (136-145)
[2020-06-02] MEDS: Lactated Ringers 1,000 ML 50 ML IV (03:30)
[2020-06-02 04:08] LABS: Rubella IgG 0.3 IU/mL
--- NOTE | 2020-06-02 04:13 | OP.PCM_ITS ---
Problem List (1) Abdominal pain affecting Status: Acute (2) History of delivery Status: Acute (3) Insufficient care in third trimester Status: Acute (4) Uterine rupture Status: Acute Comment: complete dehiscence of myometrium at 38 weeks Delivery Classification: LAURA Final MICHAEL: 06/12/20 Gestational age: 38 Weeks and 4 Days photographic laboratory technician: Mitesh Flannery Type of Anesthesia:: Spinal Special Medications: yolanda Implants Used: none Date of Procedure: 06/02/20 Pre-Operative Diagnosis: abdominal pain , previous Post-Operative Diagnosis: same plus complete uterine rupture Description of Procedure: 25-year-old G2, P1 at 38 and 4 presents due to severe abdominal pain with regular contractions. Patient has a history of a 14 months ago due to eclampsia. Her boss dyer brought her in due to severe abdominal pain with no cervical dilation but regular contractions. Upon initial evaluation heart rate tracing was reassuring and patient was hemodynamically stable but had pain that was difficult disproportionate to the clinical presentation therefore the decision to proceed with immediate due to suspected abruption or rupture was made. Hemoglobin was 13.6 and platelets are 143. Spinal anesthesia was placed without difficulty and patient's abdomen was prepped draped in normal sterile fashion and a Pfannenstiel skin incision was made through the previous incision carried through the underlying layer the fascia with the scalpel fascia was nicked in the midline the incision extended laterally the peritoneum entered digitally and the incision stretched laterally. Upon immediate entry into the a bdominal cavity a complete uterine rupture was noted with no muscle layer seen over the previous scar and a complete 10 cm uterine rupture was seen with a layer of serosa being the only thing containing the baby with inside the ruptured uterus. The tissue was completely translucent see-through and vernix in the fetus were visualized prior to the incision. Incision was made and this tissue and baby delivered immediately. Delayed cord clamping was employed due to reassuring status Apgars were 9 and 9. Cord was clamped and cut and the was handed off to waiting nurse. Placenta delivered spontaneously immediately following was noted to be intact have a three-vessel cord with no gross abnormalities or abruption is noted. Uterus was exteriorized cleared of all clots and debris and the uterine rupture inspected and noted to have no additional abnormalities or findings. The myometrium was reapproximated in a double layer closure with excellent hemostasis except for a small amount of serosal raw appearance so Yolanda was applied. Peritoneum reapproximated with 3- 0 Monocryl and fascia closed with 0 PDS strata fix. Subcuticular skin closure and Mepilex were applied and patient was taken to recovery in stable condition. It was discussed with the patient and her immediately the diagnosis and the caution for future pregnancies that she should never have another trial of labor and if she does conceive again she needs to wait at least 18 months to 2 years prior to her next conception and I would recommend delivery at 36 to 37 weeks with any subsequent pregnancie. Inspector Balance Truing Ann Lofton was contacted and updated with this information regarding present clinical status and future management recommendations. Multi Select Codes - Urinary/Genital Urinary/Genital CPT Codes: 75987 delivery only
[2020-06-02 04:20] LABS: Fibrinogen 405 mg/dl (203-444)
[2020-06-02 04:28] LABS: HIV - WCH Non-Reactive (Nonreactive); Hepatitis B Surface Antigen Non-Reactive (Nonreactive); Hepatitis C Antibody Non-Reactive (Nonreactive)
[2020-06-02] MEDS: Oxytocin 30 units/NS 500 ml 30 UNITS/500 ML IV.SOLN 167 UNITS IV (04:49)
[2020-06-02 04:58] LABS: Pathology Specimen OB SEE PATHOLOGY REPORT
[2020-06-02 05:58] LABS: Amphetamine Urine VISTA NEGATIVE (<1000 ng/mL); Barbiturate Urine VISTA NEGATIVE (< 200 ng/mL); Benzodiazepine Urine VISTA NEGATIVE (< 200 ng/mL); Cocaine Urine VISTA NEGATIVE (< 300 ng/mL); Ecstacy Urine VISTA NEGATIVE (< 500 ng/mL); Methadone Urine VISTA NEGATIVE (< 300 ng/mL); PCP Urine VISTA NEGATIVE (< 25 ng/mL); THC Urine VISTA NEGATIVE (< 50 ng/mL); Vista UDS pH Range 6
[2020-06-02] MEDS: Acetaminophen 500 MG Tablet 1000 MG PO ×3 (06:28→18:23)
[2020-06-02 07:55] LABS: Chlamydia Trachomatis by PCR Negative (Negative); Neisserai gonorrhoeae by PCR Negative (Negative); Probe Check PASS; Specimen Processing Control PASS
[2020-06-02 07:56] LABS: Sample Adequacy Control PASS
[2020-06-02] MEDS: Lactated Ringers 1,000 ML 100 ML IV (08:25)
[2020-06-02] MEDS: Ketorolac 30 MG/ML Syringe IV ×3 (09:46→20:59)
[2020-06-02] MEDS: 0.9% Saline Lock 10 ML Syringe IV ×3 (09:47→20:59)
--- NOTE | 2020-06-02 22:09 | DCINST_ITS ---
<Shahid Adamson - Last Filed: 06/02/20 22:09> Discharge Diet: No Restrictions Discharge Activity: May Not Drive - for 2 weeks, May not drive while taking narcotic pain medications., May Shower, May Take a Tub Bath - in 7 days May resume sexual activity in: 4-6 weeks Lifting Restrictions: 20 pounds Additional Activity Instructions:: Nothing in the vagina for 4-6 weeks. You may return to work/school in 6 weeks. Call your doctor if your incision/area has: Continuous Slow Oozing, Sudden Increased Bleeding, Increased Pain/ Swelling, Increased Redness, Foul Smelling Discharge Call your doctor if you observe: Fever of 101 or Higher, Using more than one pad per hour - for 2 hours Suture Line Care: Avoid Pulling/Pushing, Avoid Pinching/Bending Cleanse incision/area with: Keep Dressing Clean & Dry Additional Instructions: If you experience any of the following, contact your healthcare provider. * Bleeding that soaks a pad every hour for 2 hours * Fever 100.4 or higher * Unrelieved incision or abdominal pain * Swelling, redness, discharge or bleeding from your incision or episiotomy site * Your incision begins to separate * Problems urinating (including inability to urinate or burning while urinating). * Visual changes * Severe headache * Flu-like symptoms * Pain or redness in one of both of your breasts * Pain, warmth, tenderness or swelling in your legs, especially the calf area * Frequent nausea and vomiting * Symptoms of depression or anxiety If you experience any of the following, call 911 or go to the nearest Emergency Room. * Chest pain * Problems breathing * Seizure activity * Partial or complete paralysis of a body part, slurred speech, weakness or drooping of the face, or a sudden inability to walk or hold your balance Allergies/Adverse Reactions: Allergies No Known Allergies Allergy (Verified 06/02/20 03:07) Medications to take at Discharge [place] 250 mg PO 03/12/19 Calcium Carbonate [Calcium] 500 mg PO 03/12/19 Vits [Prenatabs FA] 1 tablet PO DAILY 03/12/19 Naproxen [Naprosyn] 250 - 500 mg PO Q8H PRN PRN #30 tablet 03/14/19 Naproxen [Naprosyn] 250 - 500 mg PO Q8H PRN PRN #30 tab 06/02/20 Oxycodone HCl/Acetaminophen [Percocet 5-325] 1 - 2 tab PO Q6H PRN PRN 7 Days #15 tab 06/02/20 The following prescriptions were given: Naproxen [Naprosyn] 250 - 500 mg PO Q8H PRN PRN #30 tab PRN Reason: MILD PAIN Transmission Status: Received by [facility] Oxycodone HCl/Acetaminophen [Percocet 5-325] 1 - 2 tab PO Q6H PRN PRN 7 Days #15 tab PRN Reason: Pain Transmission Status: Received by [facility] Follow-Up: Call to make an appointment with your doctor for an incision check in 1-2 weeks. You will also need a 6 week post- follow up appointment. Test results from this visit will be discussed in further detail at your follow- up appointment, if applicable. Please Follow Up With: Oly Adams MD - Call to make an appointment for an incision check in 1-2 [phone] When: You will need a post- check in 6 weeks. Primary Care Physician: Care Physician,No Primary [Primary Care Provider] - <Jacinta Melendrez - Last Filed: 06/03/20 07:54> Additional Instructions: If you experience any of the following, contact your healthcare provider. * Bleeding that soaks a pad every hour for 2 hours * Fever 100.4 or higher * Unrelieved incision or abdominal pain * Swelling, redness, discharge or bleeding from your incision or episiotomy site * Your incision begins to separate * Problems urinating (including inability to urinate or burning while urinating). * Visual changes * Severe headache * Flu-like symptoms * Pain or redness in one of both of your breasts * Pain, warmth, tenderness or swelling in your legs, especially the calf area * Frequent nausea and vomiting * Symptoms of depression or anxiety If you experience any of the following, call 911 or go to the nearest Emergency Room. * Chest pain * Problems breathing * Seizure activity * Partial or complete paralysis of a body part, slurred speech, weakness or drooping of the face, or a sudden inability to walk or hold your balance Follow-Up: Call to make an appointment with your doctor for an incision check in 1-2 weeks. You will also need a 6 week post- follow up appointment. Test results from this visit will be discussed in further detail at your follow- up appointment, if applicable.
[2020-06-03] MEDS: Acetaminophen 500 MG Tablet 1000 MG PO ×2 (00:29→08:32)
[2020-06-03 00:32] VITALS: BP 102/49; PULSE 73; RESP 15; TEMP 36.3; O2SAT 97
[2020-06-03 01:53] VITALS: PULSE 70; RESP 16; TEMP 36.6; O2SAT 98
[2020-06-03] MEDS: Ketorolac 30 MG/ML Syringe IV (04:07)
[2020-06-03] MEDS: 0.9% Saline Lock 10 ML Syringe IV (04:11)
[2020-06-03 06:05] LABS: Hemoglobin 10.9 g/dL (12.0-15.0); Mean Corpuscular Hgb 31.7 pg (27.0-32.0); Mean Corpuscular Volume 95.9 fL (81-99); Mean Platelet Vol. 11.5 fl (6.2-12.0); POSITIVE COUNT YES; Platelet Count 95 K/mm3 (150-450); RBC Distribution Width CV 13.2 % (11.6-14.6); RBC Distribution Width SD 46.4 fl (35.1-43.9); Red Blood Count 3.44 M/mm3 (4.2-5.4); White Blood Count 6.3 K/mm3 (4.4-11.0)
[2020-06-03 06:06] LABS: Scan Indicated on CBC? Y/N YES- FLAGS NOTED
[2020-06-03 06:33] LABS: Differential Comment SCANNED
--- NOTE | 2020-06-03 07:52 | PCM.PN.OB ---
Patient Problems: Active and Suspected Problems (Last Updated 06/02/20 @ 03:[address] Oly Adams MD) Abdominal pain affecting (Acute) History of delivery (Acute) Insufficient care in third trimester (Acute) Uterine rupture (Acute) complete dehiscence of myometrium at 38 weeks Subjective: Doing well, no complaints.Pain controlled. Denies CP, SOB, N,V. Ambulating well, tolerating po. Lochia moderate, going well. - Physical Exam Vitals/I&O's: Vital Signs Temp Pulse Resp BP Pulse Ox 97.3 F L 73 15 102/49 L 97 06/03/20 00:32 06/03/20 00:32 06/03/20 00:32 06/03/20 00:32 06/03/20 00:32 Oxygen Delivery Method Room Air Weight: 127 lb 8 oz Body Mass Index (BMI) 24.9 Intake and Output for Last 24 Hours 06/01/20 06/02/20 06/03/20 23:59 23:59 23:59 Intake Total 2124.17 / 2124.17 Output Total 1625 / 1625 900 / 900 Balance 499.17 / 499.17 -900 / -900 General: Alert, Oriented x3 Abdomen: Soft, Non-Distended, - - Dressing dry and intact, old drainage noted and marked. FF at U Laboratory Results 06/02/20 05:20: Chlam trachomat DNA PCR Negative, N.gonorrhoeae DNA (PCR) Negative 06/03/20 05:50: WBC 6.3, RBC 3.44 L, Hgb 10.9 L, Hct 33.0 L, MCV 95.9, MCH 31.7, MCHC 33.0, RDW Std Deviation 46.4 H, RDW Coeff of Yin 13.2, Plt Count 95 L, MPV 11.5, Differential Comment SCANNED Current Medications Acetaminophen (Tylenol) 1,000 mg PO Q6 STACY Last Admin: 06/03/20 00:29 Dose: 1,000 mg Documented by: Bisacodyl (Dulcolax) 10 mg RECTAL UD PRN PRN Reason: If no BM Hydrocortisone (Hytone) 1 applic TOPICAL TID PRN PRN; Protocol PRN Reason: Discomfort Naloxone HCl 4 mg/ Dextrose 504 mls @ 0 mls/hr IV .Q0M PRN; Protocol PRN Reason: Respiratory depression Methylergonovine Maleate (Methergine) 0.2 mg IM X1 PRN PRN Reason: Uterine Atony Naloxone HCl (Narcan) 0.02 mg IV Q1M PRN PRN Reason: RR <10 and pt unresponsive Naproxen (Naprosyn) 500 mg PO Q8H STACY Ondansetron HCl (Zofran) 4 mg IV Q4H PRN PRN PRN Reason: Nausea Oxycodone HCl (Oxyir) 5 - 10 mg PO Q4H PRN PRN PRN Reason: Pain Score 4-10/10 Prochlorperazine Edisylate (Compazine Iv) 10 mg IV Q6H PRN PRN PRN Reason: NAUSEA Senna/Docusate Sodium (Senokot-S, Milagro-Colace) 0 tablet PO DAILY STACY Last Admin: 06/02/20 09:47 Dose: Not Given Documented by: Simethicone (Mylicon) 80 mg PO PCHS PRN PRN Reason: Indigestion/stomach pain Sodium Chloride () 5 - 15 ml IV UD PRN PRN Reason: SALINE FLUSH Last Admin: 06/03/20 04:11 Dose: 10 ml Documented by: Medical Necessity - Tobacco Use Smoking Status: Never smoker Assessment/Plan All Active Problems (Last Updated 06/02/20 @ 03:[address] Oly Adams MD) Eclampsia (Acute) Anemia associated with acute blood loss (Acute) Abdominal pain affecting (Acute) History of delivery (Acute) Insufficient care in third trimester (Acute) Uterine rupture (Acute) s/p LTCS PPD # 1 1. routine post care 2. breast feeding- support given 3. rh positive 4. rubella nonimmunr 5. plans home today
[2020-06-03] MEDS: Senna/Docusate Sodium 1 Tablet PO (08:31)
[2020-06-03 09:00] VITALS: BP 101/62; PULSE 75; RESP 16; TEMP 36.4
[2020-06-04 01:39] LABS: Rapid Plasmin Reagin (RPR) NONREACTIVE (NONREACTIVE)
== END 2020-06-03 11:00 | disposition home or self-care (01) | DRG 788 ==
LOC: OBT 03:25 → WP 03:25
PROVIDERS: Admitting Provider Obstetrics & Gynecology; Referring Provider Obstetrics & Gynecology; Visit Provider Obstetrics & Gynecology
DX: O71.1 Rupture of uterus during labor (principal); O34.211 Maternal care for low transverse scar from previous cesarean delivery; Z3A.38 38 weeks gestation of pregnancy; Z37.0 Single live birth
CPT/HCPCS: 59025; 59050; 80053; 80307; 85025; 85027; 85384; 85610; 85730; 86592; 86703; 86762; 86803; 86850; 86900; 86901; 87340; 87491; 87591; 88307; 99218; J7120; A4216; G0378; J2405

== ENCOUNTER → 2021-05-07 09:29 | Outpatient (CLI) | payer SELFPAY ==
[2021-05-07 08:53] VITALS: BMI 24.9
[2021-05-07 09:42] LABS: Absolute Lymphocyte Count 1.41 X10^3/uL (0.83-4.51); Basophil# 0.02 X10^3/uL; Basophil% 0.4 % (0-1); Eosinophil# 0.15 X10^3/uL; Hematocrit 38.7 % (37-47); Hemoglobin 13.1 g/dL (12.0-15.0); Lymphocyte # 1.41 X10^3/ul (0.83-4.51); Lymphocyte % 28.4 % (19-41); Mean Corp Hgb Conc 33.9 g/dL (32-36); Mean Corpuscular Hgb 29.9 pg (27.0-32.0); Mean Corpuscular Volume 88.4 fL (81-99); Mean Platelet Vol. 10.4 fl (6.2-12.0); Monocyte# 0.36 X10^3/uL; Monocyte% 7.2 % (0-10); NRBC Flagged by Analyzer 0 % (0-5); Neutrophil # 3.03 X10^3/uL (2.7-7.7); Platelet Count 184 K/mm3 (150-450); RBC Distribution Width CV 12.1 % (11.6-14.6); RBC Distribution Width SD 39.3 fl (35.1-43.9); Red Blood Count 4.38 M/mm3 (4.2-5.4)
[2021-05-07 10:22] LABS: T4 Free Direct 0.88 ng/dL (0.76-1.46)
== END ==
PROVIDERS: Referring Provider Obstetrics & Gynecology; Visit Provider Obstetrics & Gynecology
DX: N93.9 Abnormal uterine and vaginal bleeding, unspecified (principal)
CPT/HCPCS: 36415; 84439; 84443; 85025

== ENCOUNTER 2022-02-07 10:22 | Outpatient (CLI) | payer SELFPAY ==
[2022-02-07 10:40] LABS: Absolute Lymphocyte Count 0.94 X10^3/uL (0.83-4.51); Absolute Neutrophil Count 2.3 X10^3/uL (2.0-7.7); Basophil# 0.01 X10^3/uL; Basophil% 0.3 % (0-1); Eosinophil# 0.01 X10^3/uL; Eosinophils% 0.3 % (0-5); Hematocrit 37.7 % (37-47); Hemoglobin 13.4 g/dL (12.0-15.0); Lymphocyte # 0.94 X10^3/ul (0.83-4.51); Lymphocyte % 25.5 % (19-41); Mean Corp Hgb Conc 35.5 g/dL (32-36); Mean Corpuscular Hgb 31.5 pg (27.0-32.0); Mean Corpuscular Volume 88.5 fL (81-99); Mean Platelet Vol. 11.1 fl (6.2-12.0); Monocyte% 10.9 % (0-10); NRBC Flagged by Analyzer 0 % (0-5); Neutrophil # 2.32 X10^3/uL (2.7-7.7); Platelet Count 145 K/mm3 (150-450); RBC Distribution Width CV 12.3 % (11.6-14.6); RBC Distribution Width SD 39.7 fl (35.1-43.9); Red Blood Count 4.26 M/mm3 (4.2-5.4); White Blood Count 3.7 K/mm3 (4.4-11.0)
[2022-02-07 11:02] LABS: Protein:Creat Ratio 139 mg/g CRE (0-200)
[2022-02-07 11:04] LABS: AST(SGOT) 20 U/L (15-37); Alanine Aminotransfer ALT/SGPT 31 U/L (13-56); Albumin, Serum 3.8 g/dL (3.2-5.0); Alkaline Phosphatase 48 U/L (45-117); Anion Gap 6 (5-15); BUN 9 mg/dL (7-18); BUN/Creat Ratio 17.5 RATIO (10-20); Calcium,Total 8.6 mg/dL (8.5-10.1); Chloride 104 mmol/L (98-107); Creatinine, Serum 0.51 mg/dL (0.55-1.02); EST Glomerular Filtration Rate 154 mL/min (>60); Est Glom Filt Rate - Afr Amer 186 mL/min (>60); Globulin 3.7 g/dL (2.2-4.2); Glucose 88 mg/dL (74-106); Potassium 3.8 mmol/L (3.5-5.1); Protein, Total 7.5 g/dL (6.4-8.2); Sodium Level 135 mmol/L (136-145)
[2022-02-07 11:10] LABS: Rubella IgG Non-Reactive (Nonreactive)
[2022-02-11 12:41] LABS: HPV Reflexed? NOT INDICATED
== END 2022-02-07 23:59 | disposition home or self-care (01) ==
LOC: PAVLAB 10:24
PROVIDERS: Referring Provider Obstetrics & Gynecology; Visit Provider Obstetrics & Gynecology
DX: Z34.90 Encounter for supervision of normal pregnancy, unspecified, unspecified trimester (principal); Z87.59 Personal history of other complications of pregnancy, childbirth and the puerperium
CPT/HCPCS: 36415; 80053; 82570; 84156; 85025; 86762; 86850; 86900; 86901; 87086; 88175; G0145

== ENCOUNTER → 2022-05-02 | Outpatient (CLI) | payer SELFPAY ==
--- NOTE | 2022-05-02 10:47 | US_ITS ---
STUDY: SECOND AND THIRD TRIMESTER OBSTETRICAL ULTRASOUND REASON FOR EXAM: Female, 27 years old . anatomy. LMP: 12/12/2021. TECHNIQUE: Transabdominal and Transvaginal TECHNICAL QUALITY: Adequate. PRIOR ULTRASOUND: None. FINDINGS: There is a single intrauterine fetus. The fetus is in a cephalic presentation. There is demonstrated cardiac activity with a heart rate of 144 bpm. There is a normal amniotic fluid volume. The largest amniotic fluid pocket measures 5.4 cm x 4.8 cm. The amniotic fluid index (ELVIRA) is within normal limits. The placenta is anterior in location and is not low lying. There are Grade 0 placental changes. The cervix measures 3.9 cm in length. The bilateral adnexal regions are normal. BIOMETRY: BPD: 4.7 cm: 20 weeks, 1 days HC: 17.7 cm: 20 weeks, 0 days AC: 16.3 cm: 21 weeks, 2 days FL: 3.1 cm: 19 weeks, 3 days CI: 76% FL/BPD: 65% FL/HC: FL/AC: 19% HC/AC: 1.08 age by current US: 20 weeks, 0 days. MICHAEL by current US: 09/19/2022. Estimated weight: 362 grams, +/- 54 grams, 68 %. Age by LMP: 20 weeks, 1 days. MICHAEL by LMP: 09/18/2022. ANATOMY: Gender: Indeterminant Cranium: Normal lateral ventricles. Normal choroid plexus. Normal cerebellum. Normal cisterna magna. Normal face, nose and lips. Chest: Normal 4-chamber heart. Abdomen/Pelvis: Normal diaphragm. Normal stomach. Normal abdominal wall. Normal cord insertion. Normal 3 vessel cord. Normal kidneys. Normal bladder. Spine: Normal cervical spine. Normal thoracic spine. Normal lumbar spine. Normal sacrum. Extremities: Normal bilateral upper extremities. Findings suggestive of a possible clubfoot. IMPRESSION: Single live uterine gestation with mean gestational age of 20 weeks. Findings suggestive of a clubfoot. Electronically Signed: He Jama MD at 13:46 EDT , STUDY: FIRST TRIMESTER OBSTETRICAL ULTRASOUND REASON FOR EXAM: Female, 27 years old . Cervical length measurement. LMP: 12/12/2021. TECHNIQUE: Transvaginal TECHNICAL QUALITY: Adequate. PRIOR ULTRASOUND: None. FINDINGS: Cervical length measures 3.9 cm cyst. US/OB Anatomy Scan IMPRESSION: Cervical length measures 3.9 cm. Electronically Signed: He Jama MD at 13:48 EDT ,
== END | disposition home or self-care (01) ==
PROVIDERS: Referring Provider Obstetrics & Gynecology; Visit Provider Obstetrics & Gynecology
DX: Z34.90 Encounter for supervision of normal pregnancy, unspecified, unspecified trimester (principal); Z3A.14 14 weeks gestation of pregnancy
CPT/HCPCS: 76805; 76817

== ENCOUNTER → 2022-06-29 | Outpatient (CLI) | payer SELFPAY ==
[2022-06-29 10:04] LABS: Absolute Lymphocyte Count 1.26 X10^3/uL (0.83-4.51); Absolute Neutrophil Count 5.5 X10^3/uL (2.0-7.7); Basophil# 0.02 X10^3/uL; Basophil% 0.3 % (0-1); Eosinophil# 0.06 X10^3/uL; Eosinophils% 0.8 % (0-5); Hematocrit 34.6 % (37-47); Hemoglobin 11.8 g/dL (12.0-15.0); Lymphocyte # 1.26 X10^3/ul (0.83-4.51); Lymphocyte % 17.1 % (19-41); Mean Corp Hgb Conc 34.1 g/dL (32-36); Mean Corpuscular Hgb 31.2 pg (27.0-32.0); Mean Corpuscular Volume 91.5 fL (81-99); Mean Platelet Vol. 10.9 fl (6.2-12.0); Monocyte# 0.47 X10^3/uL; Monocyte% 6.4 % (0-10); NRBC Flagged by Analyzer 0 % (0-5); Neutrophil # 5.45 X10^3/uL (2.7-7.7); Neutrophil % 73.9 % (47-70); Platelet Count 148 K/mm3 (150-450); RBC Distribution Width CV 13.1 % (11.6-14.6); RBC Distribution Width SD 43.1 fl (35.1-43.9); Red Blood Count 3.78 M/mm3 (4.2-5.4); White Blood Count 7.4 K/mm3 (4.4-11.0)
[2022-06-29 10:34] LABS: Glucose Challenge Gest 1H 50g 128 mg/dL (70-140)
== END | disposition home or self-care (01) ==
PROVIDERS: Nurse Practitioner Women's Health; Referring Provider Obstetrics & Gynecology; Visit Provider Obstetrics & Gynecology
DX: Z34.91 Encounter for supervision of normal pregnancy, unspecified, first trimester (principal); Z3A.14 14 weeks gestation of pregnancy
CPT/HCPCS: 36415; 82950; 85025

== ENCOUNTER 2022-08-17 10:35 | Outpatient (CLI) | payer SELFPAY ==
[2022-08-17 10:46] VITALS: BMI 29.1
[2022-08-17 10:55] VITALS: BP 104/56; PULSE 90; TEMP 36.9
[2022-08-17 11:08] LABS: Hematocrit 35.2 % (37-47); Hemoglobin 11.8 g/dL (12.0-15.0); Mean Corp Hgb Conc 33.5 g/dL (32-36); Mean Corpuscular Hgb 31.4 pg (27.0-32.0); Mean Corpuscular Volume 93.6 fL (81-99); Mean Platelet Vol. 10.5 fl (6.2-12.0); Platelet Count 153 K/mm3 (150-450); RBC Distribution Width SD 44.7 fl (35.1-43.9); Red Blood Count 3.76 M/mm3 (4.2-5.4); White Blood Count 7.3 K/mm3 (4.4-11.0)
[2022-08-17] MEDS: Betamethasone/Betamethasone 30 MG/5 ML Vial 12 MG IM (11:30)
--- NOTE | 2022-08-17 12:32 | CASEMGMT ---
Social Work Labor and Delivery Collaboration with [facility] Liaison Amanda Kim who reports family inquired after car seat availability from the [facility]. Discussed the Car Seat program with [employer] [place] and [facility]. Printed off contact information and Amanda will provide information to family. Social work available should family have additional questions. -KYLE López, MORTGAGE ORIGINATOR
--- NOTE | 2022-08-19 16:51 | OB.TRI.PN ---
Progress Notes Date of Service: 08/18/22 Progress Note: Patient presents to L&D for celestone injection only. The plan is for 36 week delivery next week due to h/o uterine rupture. Laboratory Studies: Laboratory Tests 08/17/22 Range/Units 11:00 WBC 7.3 (4.4-11.0) K/mm3 RBC 3.76 L (4.2-5.4) M/mm3 Hgb 11.8 L (12.0-15.0) g/dL Hct 35.2 L (37-47) % MCV 93.6 (81-99) fL MCH 31.4 (27.0-32.0) pg MCHC 33.5 (32-36) g/dL RDW Std Deviation 44.7 H (35.1-43.9) fl RDW Coeff of Yin 13.0 (11.6-14.6) % Plt Count 153 (150-450) K/mm3 MPV 10.5 (6.2-12.0) fl Assessment & Plan (1) Thrombocytopenia affecting : COMMENT: rpt 4 wk (2) Club foot, , affecting care of mother, antepartum: COMMENT: possible unilateral, offered genetic counseling and consultation with treatment center- declined. plan follow up after . (3) Rubella non-immune status, antepartum: COMMENT: discussed avoidance, consider MMR (4) : QUALIFIERS: Weeks of gestation: 35 weeks Qualified Code(s): Z3A.35 - 35 weeks gestation of COMMENT: genetic, carrier, and ntd screening declined. dec std labs until delivery. low WBC count and platelets - repeat next visit (5) Supervision of high-risk : QUALIFIERS: Trimester: second trimester Qualified Code(s): O09.92 - Supervision of high risk , unspecified, second trimester COMMENT: PRR SP labs MICHAEL 09/18/22 PC Kd, Ada Adrian (6) History of rupture of uterus: COMMENT: Complete dehiscence of myometrium at 38 wk(05/2020), plan 36 week delivery. 08/24 at 7:30. celestone 35 weeks (7) History of eclampsia: COMMENT: 2018 delivery with back feeder plywood layup line, presented to l and d, has cs. Pre E labs done at [facility]. 81 mg asa at 14 weeks. (8) History of delivery: COMMENT: X 2 plan RLTCS, scheduled for 08/24 @ 7:30am with JV(no availability earlier)
== END 2022-08-17 11:40 | disposition home or self-care (01) ==
LOC: WPOUT 10:38 → WP 10:38
PROVIDERS: Referring Provider Obstetrics & Gynecology; Visit Provider Obstetrics & Gynecology
DX: O99.113 Other diseases of the blood and blood-forming organs and certain disorders involving the immune mechanism complicating pregnancy, third trimester (principal); D69.6 Thrombocytopenia, unspecified; Z3A.35 35 weeks gestation of pregnancy; O34.219 Maternal care for unspecified type scar from previous cesarean delivery
CPT/HCPCS: 36415; 85027; 87081; 96372; 99218; G0378; J0702

== ENCOUNTER 2022-08-18 11:25 | Outpatient (CLI) | payer SELFPAY ==
[2022-08-18 11:42] VITALS: BMI 30.2
[2022-08-18 11:46] VITALS: BP 109/62; PULSE 86; TEMP 36.5
[2022-08-18] MEDS: Betamethasone/Betamethasone 30 MG/5 ML Vial 12 MG IM (11:47)
--- NOTE | 2022-08-19 09:50 | OB.TRI.PN ---
Progress Notes Progress Note: Patient presents for triage evaluation secondary to celestone for prematurity
== END 2022-08-18 11:55 | disposition home or self-care (01) ==
LOC: WPOUT 11:30 → WP 11:37
PROVIDERS: Visit Provider Obstetrics & Gynecology
DX: O47.9 False labor, unspecified (principal)
CPT/HCPCS: 96372; 99218; G0378; J0702

== ENCOUNTER 2022-08-24 05:57 | Inpatient (IN) | payer SELFPAY, OTHER ==
[2022-08-24] VITALS (21 sets, daily range): BP systolic 90–108; BP diastolic 50–70; PULSE 73–98; RESP 16–17; TEMP 36.1–36.9; O2SAT 95–99
[2022-08-24] MEDS: Lactated Ringers 1,000 ML 999 ML IV (06:20)
[2022-08-24 07:13] LABS: Absolute Lymphocyte Count 1.62 X10^3/uL (0.83-4.51); Absolute Neutrophil Count 5.9 X10^3/uL (2.0-7.7); Basophil# 0.05 X10^3/uL; Basophil% 0.6 % (0-1); Eosinophil# 0.07 X10^3/uL; Eosinophils% 0.8 % (0-5); Hematocrit 40.1 % (37-47); Hemoglobin 12.9 g/dL (12.0-15.0); Lymphocyte # 1.62 X10^3/ul (0.83-4.51); Lymphocyte % 18.6 % (19-41); Mean Corp Hgb Conc 32.2 g/dL (32-36); Mean Corpuscular Hgb 31.1 pg (27.0-32.0); Mean Corpuscular Volume 96.6 fL (81-99); Mean Platelet Vol. 10.9 fl (6.2-12.0); Monocyte# 0.86 X10^3/uL; Monocyte% 9.9 % (0-10); NRBC Flagged by Analyzer 0 % (0-5); Neutrophil # 5.88 X10^3/uL (2.7-7.7); Neutrophil % 67.6 % (47-70); Platelet Count 147 K/mm3 (150-450); RBC Distribution Width CV 13.2 % (11.6-14.6); RBC Distribution Width SD 46.1 fl (35.1-43.9); Red Blood Count 4.15 M/mm3 (4.2-5.4); White Blood Count 8.7 K/mm3 (4.4-11.0)
[2022-08-24] MEDS: Lactated Ringers 1,000 ML 150 ML IV ×2 (07:25→11:04)
[2022-08-24 08:28] LABS: Syphilis Antibodies Non-reactive
[2022-08-24 08:43] LABS: HIV - WCH Non-Reactive (Nonreactive); Hepatitis B Surface Antigen Non-Reactive (Nonreactive); Hepatitis C Antibody Non-Reactive (Nonreactive)
[2022-08-24 08:44] LABS: Chlamydia Trachomatis by PCR Negative (Negative); Neisserai gonorrhoeae by PCR Negative (Negative); Probe Check PASS; Sample Adequacy Control PASS; Specimen Processing Control PASS
[2022-08-24] MEDS: Acetaminophen 500 MG Tablet 1000 MG PO ×2 (12:06→19:30)
[2022-08-24] MEDS: Sodium Citrate/Citric Acid 30 ML UDC PO (12:06)
[2022-08-24] MEDS: Cefazolin 2 GM in 0.9% Normal Saline 100 ML IV (12:15)
--- NOTE | 2022-08-24 12:28 | HP.PCM.OB_ITS ---
HPI - General General Date of Admission: 08/24/22 HPI Narrative ROBIN ORTEGA, is a 27 y/o @ 36 weeks 3 days who presents for repeat section. She is status post 2 doses of celestone last week. Early delivery was planned due to h/o uterine rupture at 37 weeks and eclamptic seizure last . Maternal Data Information MICHAEL Calculator Estimated Delivery Date Method Current WG Current Estimate 09/18/22 LMP (Certain) 36w 3d Other Estimates 09/15/22 Ultrasound #1 36w 6d PFSH PFSH Medical History (Updated 08/24/22 @ 05:49 by Sherri John) Anemia associated with acute blood loss Anxiety Depression Eclampsia Headache depression Superficial varicosities Home Medications vits,calcium no.78-iron fumarate-folic acid 29 mg-1 mg tablet 1 tab PO DAILY 03/12/19 [History Last Taken 08/23/22] Saccharomyces boulardii 250 mg capsule (Daily Probiotic (S. boulardii)) 5,000 mmu cells PO DAILY 07/15/22 [History Last Taken 08/23/22] Allergy/AdvReac Type Severity Reaction Status Date / Time No Known Allergies Allergy Verified 08/24/22 05:49 Surgical History delivery delivered Social History Smoking Status: Never smoker alcohol intake: never substance use type: does not use caffeine: No what type of physical activity do you participate in: walking seatbelt use: always do you feel safe at home: Yes additional social history: [employer] History 3 Elective abortions 0 Hx Para 2 Spontaneous abortions 0 Hx # Term Pregnancies 2 Ectopic pregnancies 0 Hx # Pregnancies 0 Multiple births 0 # of living children 2 Past Pregnancies Del. Date Name GA/Weeks Outcome Route Bth Weight Infant Gen Labor Lgth Anes th esia Del Locatn Provider FOB Unknown 2018 Kd 40 live - full term 9lbs 9oz Male spinal [facility] SM Unknown 2019 Ada 38 live - full term 6lbs 12oz Female spinal [facility] SM uterine rupture Delivery Date: Last Updated by: Oly Adams MD preeclampsia Visit Details Expected Delivery Route/Plan RLTCS at 36 weeks due to history of uterine rupture Plans Covid status: declined Flu vaccine: declined Tdap vaccine: declined Rhogam: na LARC form signed: yes Problem list reviewed and updated with the most current plan of care details and appropriate orders placed. Relevant counseling for the gestational age provided. Continue routine care and follow up unless otherwise noted in visit notes/problem list details OB Flowsheet Initial Weight: 125 lb Date -?-?-?-?-?-?-?-?-?-?-?-?- EGA Weight BP Urine Prot -?-?-?-?-?-?-?-?-?-?-?-?- Glucose FHR FuHt Pres Dilation -?-?-?-?-?-?-?-?-?-?-?-?- Effaced St Visit Note 02/07/22 -?-?-?-?-?-?-?-?-?-?-?-?- 8w 1d 125 lb (+0 oz) 100/78 -?-?-?-?-?-?-?-?-?-?-?-?- 160 -?-?-?-?-?-?-?-?-?-?-?-?- SM- CRL 1.9cm co ns with LMP 03/21/22 -?-?-?-?-?-?-?-?-?-?-?-?- 14w 1d 130 lb (+5 lb) 92/78 Negative -?-?-?-?-?-?-?-?-?-?-?-?- Negative 150 -?-?-?-?-?-?-?-?-?-?-?-?- SM- no vb crampi ng doingw ell SM- no vb cramping doing wel l discussed baby asa rubella avoidance 05/02/22 -?-?-?-?-?-?-?-?-?-?-?-?- 20w 1d 135 lb 6 oz (+10 lb 6 oz) 116/64 Negative -?-?-?-?-?-?-?-?-?-?-?-?- Negative 156 -?-?-?-?-?-?-?-?-?-?-?-?- -No Vb, LOF. F eeling movement. Anatomy US today 06/02/22 -?-?-?-?-?--?-?-?-?-?-?-?- 24w 4d 141 lb 6 oz (+16 lb 6 oz) 106/60 Negative -?-?-?-?-?-?-?-?-?-?-?-?- Negative 145 -?-?-?-?-?-?-?-?-?-?-?-?- - no vb lof go od fm no regular ctx 06/29/22 -?-?-?-?-?-?-?-?-?-?-?-?- 28w 3d 146 lb 6 oz (+21 lb 6 oz) 110/58 Negative -?-?-?-?-?-?-?-?-?-?-?-?- Negative 141 28 -?-?-?-?-?-?-?-?-?-?-?-?- -No VB, LOF. Good FM. 28 wk labs, larc. Declines tdap 07/15/22 -?-?-?-?-?-?-?-?-?--?-?-?- 30w 5d 148 lb 6 oz (+23 lb 6 oz) 112/70 -?-?-?-?-?-?-?-?-?-?-?-?- 155 30 -?-?-?-?-?-?-?-?-?-?-?-?- JV- pt has compl aint of some round ligament pain and had this with her last . recommend support belt, tylenol, and rest. 07/28/22 -?-?-?-?-?-?-?-?-?-?-?-?- 32w 4d 150 lb 2 oz (+25 lb 2 oz) 128/66 Negative -?-?-?-?-?-?-?-?-?-?-?-?- Negative 145 34 -?-?-?-?-?-?-?-?-?-?-?-?- JV- no lof, vagi nal bleeding, or dec fm. plan is for 35 week steroids and deliver at 36 weeks. she wants us to tell her during the case if it looks safe to have more children and if not do a salpingectomy. otherwise will either do micronor or IUD for contraception after delivery. 08/12/22 -?-?-?-?-?-?-?-?-?-?-?-?- 34w 5d 154 lb (+29 lb) 108/65 Negative -?-?-?-?-?-?-?-?-?-?-?-?- Negative 148 35 Cephalic -?-?-?-?-?-?-?-?-?-?-?-?- JV- complete pre via, section is fo 36w2d. JV- h/o uterine rupture, sec tion is fo 36w2d. celestone x 2 next week. gbs next week. 08/17/22 -?-?-?-?-?-?-?-?-?-?-?-?- 35w 3d 154 lb (+29 lb) 107/63 Negative -?-?-?-?-?-?-?-?-?-?-?-?- Negative 145 Cephalic -?-?-?-?-?-?-?-?-?-?-?-?- JV- gbs today th en down to L&D for celestone and cbc. ROS Constitutional Constitutional: Denies change in weight, fatigue, fever(s), headache(s), poor appetite or weakness Eyes Eyes: Denies blurry vision, change in vision, seeing flashes or spots in vision ENT HEENT: Denies dizziness, headache(s), loss taste/smell or sore throat Cardiovascular Cardiovascular: Denies chest pain, dizziness, dyspnea, irregular heart rhythm, leg edema, palpitations, rapid heart rate or vomiting Respiratory/Chest Respiratory/Chest: Denies chest tightness, cough, dyspnea or breast pain Gastrointestinal Gastrointestinal: Denies abdominal pain, anorexia, constipation, cramping, diarrhea, hemorrhoids, vomiting or weight changes Genitourinary Genitourinary: Denies dysuria, flank pain, genital lesions, genital pain, urinary frequency or urinary urgency Musculoskeletal Musculoskeletal: Denies back pain, difficulty walking, joint pain, limited range of motion, muscle cramps or numbness Integumentary Integumentary: Denies lesions or unusual bruising Neurologic Neurologic: Denies abnormal movements, abnormal speech, dizziness, numbness, seizure-like activity or syncope Psychiatric Psychiatric: Denies anxiety, behavioral changes, change in appetite, change in libido, cognitive impairment, confusion, depression, difficulty concentrating, hallucinations or suicidal thoughts Endocrine Endocrinology: Denies excessive sweating, polydipsia or polyuria Hematologic/Lymphatic Hematologic/Lymphatic: Denies easy bleeding, easy bruising or lymphadenopathy Allergic/Immunologic Allergic/Immunologic: Denies itchy eyes, lip swelling, seasonal rhinorrhea, rhinitis, throat swelling, tongue swelling, eczemia, wheezing or asthma Vital Signs Vital Signs Vital Signs: 08/24/22 05:28 08/24/22 05:28 08/24/22 05:28 Temperature Temperature Source Pulse Rate 89 Blood Pressure 105/61 BP Systolic 105 BP Diastolic 61 Pulse Ox 99 08/24/22 05:28 08/24/22 05:28 08/24/22 07:53 Temperature 97.7 F L Temperature Source Temporal Pulse Rate Blood Pressure 100/50 L BP Systolic 100 BP Diastolic 50 Pulse Ox 08/24/22 07:53 08/24/22 07:53 08/24/22 07:53 Temperature Temperature Source Temporal Pulse Rate 82 Blood Pressure BP Systolic BP Diastolic Pulse Ox 97 08/24/22 07:53 08/24/22 11:08 08/24/22 11:08 Temperature 98.4 F Temperature Source Pulse Rate 82 Blood Pressure 100/55 L BP Systolic 100 BP Diastolic 55 Pulse Ox 08/24/22 11:08 08/24/22 11:08 08/24/22 11:08 Temperature 97.9 F Temperature Source Temporal Pulse Rate Blood Pressure BP Systolic BP Diastolic Pulse Ox 98 Weight Weight: 154 lb Body Mass Index (BMI) 30.0 Physical Exam Const alert, oriented x3, no apparent distress and healthy appearing General Appearance: cooperative; Negative for anxious HEENT normocephalic Face and Sinus: normal facial exam Eyes EOMs intact bilaterally and no scleral icterus General Eye: normal appearance of both eyes Neck full ROM and supple Lymph Lymphatic: no lymphadenopathy noted Chest Chest: abnormal inspection of the chest Resp normal respiratory effort Effort and Inspection: able to speak in complete sentences Cardio regular rate GI soft to palpation and non-tender Inspection: gravid Palpation: soft; Negative for tender external exam normal Amniotic Fluid: ROM+plus Back/Spine no CVA tenderness Extremity normal to inspection, full ROM and no clubbing, cyanosis or edema General Extremity: Negative for calf tenderness or edema Skin Lesions: no lesions Rashes: no rashes Psych mental status grossly normal Labs Labs Labs: Blood Type A POSITIVE Antibody Screen NEGATIVE Hct 40.1 % (37-47) Hgb 12.9 g/dL (12.0-15.0) Obstetrics US Syphilis Total Ab Non-reactive Rubella IgG Antibody Non-Reactive (Nonreactive) Hep Bs Antigen Non-Reactive (Nonreactive) HIV 1&2 Antibody Non-Reactive (Nonreactive) Glucose 1 Hr 50 gm 128 mg/dL (70-140) Rhogam given: No Assessment & Plan (1) History of delivery: COMMENT: X 2 plan RLTCS, scheduled for 08/24 @ 7:30am with JV(no availability earlier) (2) History of eclampsia: COMMENT: 2018 delivery with advertising display rotator, presented to l and d, has cs. Pre E labs done at [facility]. 81 mg asa at 14 weeks. (3) History of rupture of uterus: COMMENT: Complete dehiscence of myometrium at 38 wk(05/2020), plan 36 week delivery. 08/24 at 7:30. celestone 35 weeks (4) Supervision of high-risk : QUALIFIERS: Trimester: second trimester Qualified Code(s): O09.92 - Supervision of high risk , unspecified, second trimester COMMENT: PRR SP labs MICHAEL 09/18/22 PC Kd, Ada Adrian (5) : QUALIFIERS: Weeks of gestation: 35 weeks Qualified Code(s): Z3A.35 - 35 weeks gestation of COMMENT: GBS neg. genetic, carrier, and ntd screening declined. dec std labs until delivery. low WBC count and platelets - repeat next visit (6) Rubella non-immune status, antepartum: COMMENT: discussed avoidance, consider MMR (7) Club foot, , affecting care of mother, antepartum: COMMENT: possible unilateral, offered genetic counseling and consultation with treatment center- declined. plan follow up after . (8) Thrombocytopenia affecting : COMMENT: rpt 4 wk (9) Tetanus, diphtheria, and acellular pertussis (Tdap) vaccination declined: PLAN: Plan rpt section today. routine post orders and stay anticipated
--- NOTE | 2022-08-24 12:37 | DCINST_ITS ---
Discharge Instructions Diet Discharge Diet: No restrictions Activity Discharge Activity: May Not Drive (for 2 weeks or while taking narcotic pain medications.), May Shower and May Take a Tub Bath (in 7 days.) May resume sexual activity in: 4-6 weeks Weight Bearing Status: Full weight bearing Lifting Restrictions: 20 pounds Dressing / Incision Call your doctor if your incision/area has: Continuous Slow Oozing, Sudden Increased Bleeding, Increased Pain/ Swelling, Increased Redness and Foul Smelling Discharge Call your doctor if you observe: Fever of 101 or Higher and Using more than 1 pad per hour Suture Line Care: Avoid Pulling/Pushing and Avoid Pinching/Bending Cleanse incision/area with: Soap & Water and Keep Dressing Clean & Dry Follow Up Care Please Follow Up With: Nakia Keene DO When: Call [phone] to make an appointment for an incision check in 1-2 weeks. Test Results: Test results from this visit will be discussed in further detail at your follow- up appointment, if applicable. Discharge Plan Admission Admit Date/Time: 08/24/22 05:57 Primary Reason for Your Visit: section Attending Provider: Nakia Keene Primary Care Provider: TYRESE FAN Discharge Orders/Prescriptions Prescriptions: New ibuprofen 800 mg tablet 800 mg PO Q8H PRN (Reason: pain) 7 Days Qty: 30 0RF oxycodone-acetaminophen [Percocet] 5-325 mg tablet 1 tab PO Q4H PRN (Reason: pain) 7 Days Qty: 30 0RF Continued Saccharomyces boulardii [Daily Probiotic (S. boulardii)] 250 mg capsule 5,000 mmu cells PO DAILY vit,[id number] 1 TABLET tablet 1 tab PO DAILY Referrals / Follow Up: TYRESE FAN [Other] Disposition Disposition (needs filled in before D/C Order can be placed): Home, Self Care
--- NOTE | 2022-08-24 13:33 | EX.PCM.OBRPT ---
Assessment & Plan (1) Status post section: (2) History of delivery: COMMENT: X 2 plan RLTCS, scheduled for 08/24 @ 7:30am with JV(no availability earlier) (3) History of eclampsia: COMMENT: 2018 delivery with quill layer, presented to [facility], has cs. Pre E labs done at [facility]. 81 mg asa at 14 weeks. (4) History of rupture of uterus: COMMENT: Complete dehiscence of myometrium at 38 wk(05/2020), plan 36 week delivery. 08/24 at 7:30. celestone 35 weeks (5) Supervision of high-risk : QUALIFIERS: Trimester: second trimester Qualified Code(s): O09.92 - Supervision of high risk , unspecified, second trimester COMMENT: PRR SP labs MICHAEL 09/18/22 PC Kd, Ada Adrian (6) : QUALIFIERS: Weeks of gestation: 35 weeks Qualified Code(s): Z3A.35 - 35 weeks gestation of COMMENT: GBS neg. genetic, carrier, and ntd screening declined. dec std labs until delivery. 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 plan follow up after . (9) Thrombocytopenia affecting : COMMENT: rpt 4 wk (10) Tetanus, diphtheria, and acellular pertussis (Tdap) vaccination declined: Maternal Data Information MICHAEL Calculator Estimated Delivery Date Method Current WG Current Estimate 09/18/22 LMP (Certain) 36w 3d Other Estimates 09/15/22 Ultrasound #1 36w 6d Details Operative Information Date of Procedure: 08/24/22 Pre-Operative Diagnosis: @ 36 weeks, h/o uterine rupture, prior x 2 Post-Operative Diagnosis: @ 36 weeks, h/o uterine rupture, prior x 2 Classification: Scheduled Procedure Type: low transverse blanket weaver #1: Angel Jimenes Type of Anesthesia: Spinal Antibiotic Given: Ancef 2 grams IV x1 Drain: Nash to straight drain Estimated Blood Loss: 400cc Findings Description of Procedure: The patient is a 27 y/o presented for repeat . Spinal anesthesia was placed without difficulty. Nash catheter was placed. The patient was placed in the dorsal supine position with leftward tilt. Patient was prepped and draped in the normal sterile fashion. Pfannenstiel skin incision was made with the scalpel and carried through to the underlying layer of fascia with the scalpel. Fascia was nicked in the midline and the incision extended laterally. The rectus bellies were dissected off superiorly and inferiorly with out complication both sharply and bluntly. The peritoneum was entered digitally. The incision was stretched and a low transverse uterine incision was made with the scalpel. The 's head was delivered atraumatically followed by the anterior and posterior shoulders without complication the rest of the infant delivered. The cord was clamped and cut and the was handed off to awaiting nurse. The placenta was delivered spontaneously immediately following and was noted to be intact and have a three-vessel cord. The uterus was exteriorized cleared of all clots and debris, and the incision was closed in a double layer closure using #1 Vicryl and #1 Monocryl. The ovaries and fallopian tubes were noted to be within normal limits. The uterus was returned to the maternal abdomen and gutters were cleared of all clots and debris. The peritoneum was closed with 3-0 Monocryl in a running fashion. Gloves were changed prior to fascial closure. Fascia was closed with 0 PDS in a running fashion. Subcutaneous tissue was copiously irrigated and the skin was closed with 3-0 Monocryl in a subcuticular fashion. Mepilex dressing was applied without complication. Patient was taken to recovery in stable condition. It was discussed with the patient that based on the clinical information obtained during this encounter, combined with her history, at this time I would recommend repeta sections for future deliveries if further pregnancies are desired. Presentation: Positive for Vertex Amniotic Membrane Rupture Type: Artificial Amniotic Fluid Description: Clear Placental Delivery Description: Expressed Placenta Disposition: [facility] Cord Vessel Description: 3 Vessels Cord Entanglement: Around neck x 1, loose Nuchal Cord Compression: Without compression A Gender: Male (1 minute): 8 (5 minute): 9 Delayed Cord Clamping: Yes Complications Risks of Surgery Discussed w/Patient: Bleeding, Anesthesia Risks, Infection, Need for Future C-Sections and Injury to surrounding structure(s) including bowel and bladder Complications: none Multi Select Codes Urinary/Genital Urinary/Genital CPT Codes: 08597 Delivery global pkg
[2022-08-24] MEDS: Oxytocin 30 units/NS 500 ml 30 UNITS/500 ML IV.SOLN 167 UNITS IV (14:07)
[2022-08-24] MEDS: Ketorolac 30 MG/ML Syringe IV ×2 (14:07→20:01)
[2022-08-24] MEDS: 0.9% Saline Lock 10 ML Syringe IV (14:07)
[2022-08-24] MEDS: Lactated Ringers 1,000 ML 100 ML IV (22:00)
[2022-08-25] VITALS (12 sets, daily range): BP systolic 99–111; BP diastolic 51–62; PULSE 82–94; RESP 14–16; TEMP 36–36.2; O2SAT 95–100
--- NOTE | 2022-08-25 00:29 | NURSING ---
This RN helped assist pt into bathroom with help from spouse at 0000. Pt extra painful when up walking but once sitting or laying down, pain decreases. Pt's spouse called out that pt was done on the toilet and when this RN entered room, pt stated she felt faint and dizzy as spouse was fanning her with folder. Overall color of pt was appropriate, pt felt warm and slightly sweaty. Called out for assistance and Tati RN came to the room. Pt went to stand up but had to sit down again on the toilet as she felt dizzy. Tati brought in some juice for the pt and after the pt was able to drink the whole juice, we assisted the pt back into bed. Once laying down and comfortable, pt stated she felt better and that she was going to eat some food.
[2022-08-25] MEDS: 0.9% Saline Lock 10 ML Syringe IV ×2 (01:59→08:33)
[2022-08-25] MEDS: Acetaminophen 500 MG Tablet 1000 MG PO ×4 (01:59→20:49)
[2022-08-25] MEDS: Ketorolac 30 MG/ML Syringe IV ×2 (01:59→08:29)
[2022-08-25 06:58] LABS: Hematocrit 34.4 % (37-47); Hemoglobin 11.3 g/dL (12.0-15.0); Mean Corp Hgb Conc 32.8 g/dL (32-36); Mean Corpuscular Hgb 31.1 pg (27.0-32.0); Mean Corpuscular Volume 94.8 fL (81-99); Mean Platelet Vol. 10.4 fl (6.2-12.0); Platelet Count 125 K/mm3 (150-450); RBC Distribution Width CV 13.2 % (11.6-14.6); RBC Distribution Width SD 45.8 fl (35.1-43.9); Red Blood Count 3.63 M/mm3 (4.2-5.4); White Blood Count 9.9 K/mm3 (4.4-11.0)
--- NOTE | 2022-08-25 08:54 | PN.OBGYN_ITS ---
Subjective Subjective Patient is laying in bed comfortably without complaints. She states that she slept on an off during the night. Lochia is mild and pain is minimal. Objective Data Objective Data Vital Signs: Vital Signs Temp Pulse Resp BP Pulse Ox O2 Del Method 96.9 F L 89 16 101/59 L 98 Room Air 08/25/22 08:15 08/25/22 08:15 08/25/22 08:15 08/25/22 08:15 08/25/22 08:15 08/25/22 08:15 Oxygen Delivery Method Room Air Weight: 154 lb Body Mass Index (BMI) 30.0 Intake & Output: Intake and Output for Last 24 Hours 08/23/22 08/24/22 08/25/22 23:59 23:59 23:59 Intake Total 3552.9 / 3552.9 Output Total 2200 / 2200 950 / 950 Balance 1352.9 / 1352.9 -950 / -950 Lab / Micro Data Result Diagrams: 08/25/22 06:50 Labs: Laboratory Results - last 24 hr 08/24/22 06:30: Blood Type A POSITIVE, Antibody Screen NEGATIVE 08/25/22 06:50: WBC 9.9, RBC 3.63 L, Hgb 11.3 L, Hct 34.4 L, MCV 94.8, MCH 31.1, MCHC 32.8, RDW Std Deviation 45.8 H, RDW Coeff of Yin 13.2, Plt Count 125 L, MPV 10.4 Micro: Microbiology 08/24/22 06:35 Nasal Secretion SARS-CoV-2 Antigen (Rapid) - Final ROS Constitutional Constitutional: Reports systems reviewed and no addt'l complaints, except as documented Cardiovascular Cardiovascular: Denies chest pain, dizziness, dyspnea or irregular heart rhythm Respiratory/Chest Respiratory/Chest: Denies cough, pain on inspiration or shortness of breath at rest Gastrointestinal Gastrointestinal: Denies abdominal pain, nausea or vomiting Genitourinary Genitourinary: Denies burning urination Musculoskeletal Musculoskeletal: Denies muscle cramps, muscle spasms or muscle weakness Neurologic Neurologic: Denies confusion, dizziness, headache(s) or lack of coordination Psychiatric Psychiatric: Denies anxiety, behavioral changes or depression Physical Exam HEENT normocephalic Resp normal respiratory effort and normal air movement GI soft to palpation, non-tender and non-distended Rectal Exam: other Other Details: Incision is clean, dry, and intact no CVA tenderness Extremity normal to inspection General Extremity: edema bilateral (trace ) Assessment & Plan (1) Status post section: (2) History of delivery: COMMENT: X 2 plan RLTCS, scheduled for 08/24 @ 7:30am with JV(no availability earlier) (3) History of eclampsia: COMMENT: 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 Pre E labs done at [facility]. 81 mg asa at 14 weeks. (4) History of rupture of uterus: COMMENT: Complete dehiscence of myometrium at 38 wk(05/2020), plan 36 week delivery. 08/24 at 7:30. [facility] 35 weeks (5) Supervision of high-risk : QUALIFIERS: Trimester: second trimester Qualified Code(s): O09.92 - Supervision of high risk , unspecified, second trimester COMMENT: PRR SP labs MICHAEL 09/18/22 PC Kd, Ada Adrian (6) : QUALIFIERS: Weeks of gestation: 35 weeks Qualified Code(s): Z3A.35 - 35 weeks gestation of COMMENT: GBS neg. genetic, carrier, and ntd screening declined. dec std labs until delivery. 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 plan follow up after . (9) Thrombocytopenia affecting : COMMENT: rpt 4 wk (10) Tetanus, diphtheria, and acellular pertussis (Tdap) vaccination declined: PLAN: Plan s/p LTCS PPD # 1 1. routine post care 2. breast feeding- support given 3. rh positive 4. rubella immune
[2022-08-25] MEDS: Senna/Docusate Sodium 1 Tablet PO (11:58)
[2022-08-25] MEDS: Ibuprofen 600 MG Tablet PO ×2 (14:28→20:48)
[2022-08-25] MEDS: oxyCODONE 5 MG Tablet PO (15:49)
[2022-08-26 02:17] VITALS: BP 109/68; PULSE 80; RESP 15; TEMP 36.3
[2022-08-26] MEDS: Acetaminophen 500 MG Tablet 1000 MG PO ×2 (02:51→09:35)
[2022-08-26] MEDS: Ibuprofen 600 MG Tablet PO ×2 (02:52→09:35)
--- NOTE | 2022-08-26 07:41 | VDLE_ITS ---
Reason For Study: Swelling RIGHT GSV is normal. Thrombus filled varicose veins noted from the right groin to knee. CFV is visualized with color only, appears normal. Normal venous flow noted. FV is compressible, spontaneous, phasic, competent and demonstrates normal augmentation. POP V is compressible, spontaneous, phasic, competent and demonstrates normal augmentation. T/P Trunk is compressible. PTV is compressible. RT PerV is compressible. Procedure This is a venous duplex using B-mode, color flow and spectral Doppler. Exam performed portable in patient room. A preliminary report was called and/or faxed to [facility]. VL/Venous Duplex US, Unilateral Interpretation Summary There is no evidence of right lower extremity deep vein thrombosis. Superficial thrombophlebitis varicose veins right groin to the knee. Right great saphenous vein is still patent and compressible Ordering Physician: Oly Adams Performed By: Ann Peng RVT
--- NOTE | 2022-08-26 07:43 | PCM.PN.OB ---
Subjective Subjective Patient doing well without complaints. Tolerating PO. Ambulating and voiding without difficulty. feeding well. Denies chest pain, shortness of breath, calf pain/swelling, fevers, chills, lightheadedness. Objective Data Objective Data Vital Signs: Vital Signs Temp Pulse Resp BP Pulse Ox O2 Del Method 97.4 F L 80 15 109/68 98 Room Air 08/26/22 02:17 08/26/22 02:17 08/26/22 02:17 08/26/22 02:17 08/25/22 17:05 08/25/22 17:05 Oxygen Delivery Method Room Air Weight: 154 lb Body Mass Index (BMI) 30.0 Intake & Output: Intake and Output for Last 24 Hours 08/24/22 08/25/22 08/26/22 23:59 23:59 23:59 Intake Total 3552.9 / 3552.9 Output Total 2200 / 2200 950 / 950 Balance 1352.9 / 1352.9 -950 / -950 Lab / Micro Data Result Diagrams: 08/25/22 06:50 Micro: Microbiology 08/24/22 06:35 Nasal Secretion SARS-CoV-2 Antigen (Rapid) - Final ROS Constitutional Constitutional: Reports systems reviewed and no addt'l complaints, except as documented Cardiovascular Cardiovascular: Reports systems reviewed and no addt'l complaints, except as documented Respiratory/Chest Respiratory/Chest: Reports systems reviewed and no addt'l complaints, except as documented Gastrointestinal Gastrointestinal: Reports systems reviewed and no addt'l complaints, except as documented Physical Exam Const alert, oriented x3 and no apparent distress HEENT Head and Scalp: atraumatic Resp normal respiratory effort GI soft to palpation and non-tender Inspection: incision intact, healing well and drainage (none) Bimanual Exam - Vag & Uterus: uterus non-tender Uterus Palpation: uterus fundus firm (below Umbilicus) Assessment & Plan (1) Thrombocytopenia affecting : COMMENT: rpt 4 wk (2) Tetanus, diphtheria, and acellular pertussis (Tdap) vaccination declined: (3) Club foot, , affecting care of mother, antepartum: COMMENT: possible unilateral, offered genetic counseling and consultation with treatment center- declined. plan follow up after . (4) Rubella non-immune status, antepartum: COMMENT: discussed avoidance, consider MMR PLAN: Plan post care dc home
[2022-08-26 08:00] VITALS: BP 111/63; PULSE 81; RESP 18; TEMP 36.8; O2SAT 98
--- NOTE | 2022-08-26 09:05 | PCM.PN.OB ---
Objective Data Objective Data Vital Signs: Vital Signs Temp Pulse Resp BP Pulse Ox O2 Del Method 98.2 F 81 18 111/63 98 Room Air 08/26/22 08:00 08/26/22 08:00 08/26/22 08:00 08/26/22 08:00 08/26/22 08:00 08/26/22 08:00 Oxygen Delivery Method Room Air Weight: 154 lb Body Mass Index (BMI) 30.0 Intake & Output: Intake and Output for Last 24 Hours 08/24/22 08/25/22 08/26/22 23:59 23:59 23:59 Intake Total 3552.9 / 3552.9 Output Total 2200 / 2200 950 / 950 Balance 1352.9 / 1352.9 -950 / -950 Lab / Micro Data Result Diagrams: 08/25/22 06:50 Micro: Microbiology 08/24/22 06:35 Nasal Secretion SARS-CoV-2 Antigen (Rapid) - Final
[2022-08-26] MEDS: Senna/Docusate Sodium 1 Tablet PO (09:35)
[2022-08-26 15:00] VITALS: BP 115/67; PULSE 88; RESP 16; TEMP 36.2; O2SAT 95
== END 2022-08-26 15:20 | disposition home or self-care (01) | DRG 787 ==
LOC: WPOUT 06:02 → WP 06:02
PROVIDERS: Admitting Provider Obstetrics & Gynecology; Referring Provider Obstetrics & Gynecology; Visit Provider Obstetrics & Gynecology
PROC: 10D00Z1 Extraction of Products of Conception, Low, Open Approach (ICD-10-PCS; CPT 59514; principal; 2022-08-24 11:45)
DX: O34.219 Maternal care for unspecified type scar from previous cesarean delivery (principal); O99.12 Other diseases of the blood and blood-forming organs and certain disorders involving the immune mechanism complicating childbirth; D69.6 Thrombocytopenia, unspecified; O36.8930 Maternal care for other specified fetal problems, third trimester, not applicable or unspecified; Z31.5 Encounter for procreative genetic counseling; Z3A.36 36 weeks gestation of pregnancy; Z37.0 Single live birth; Z87.59 Personal history of other complications of pregnancy, childbirth and the puerperium; Z28.21 Immunization not carried out because of patient refusal; O69.81X0 Labor and delivery complicated by cord around neck, without compression, not applicable or unspecified
CPT/HCPCS: 59025; 59050; 85025; 85027; 86703; 86780; 86803; 86850; 86900; 86901; 87340; 87426; 87491; 87591; 93971; 99218; J7120; A4216; G0378; J2405

== ENCOUNTER → 2025-03-21 | Outpatient (CLI) | payer SELFPAY ==
[2025-03-24 21:07] LABS: Chlamydia By Nucleic Acid AMP Negative (Negative); Gonococcus By Nucleic Acid AMP Negative (Negative)
== END | disposition home or self-care (01) ==
LOC: LABSPEC 16:21
PROVIDERS: Referring Provider Obstetrics & Gynecology; Visit Provider Obstetrics & Gynecology
DX: O09.90 Supervision of high risk pregnancy, unspecified, unspecified trimester (principal); Z3A.00 Weeks of gestation of pregnancy not specified
CPT/HCPCS: 87491; 87591; 88175; G0145

== ENCOUNTER → 2025-04-18 | Outpatient (CLI) | payer OTHER, SELFPAY ==
[2025-04-18 12:43] LABS: Absolute Lymphocyte Count 1.32 X10^3/uL (0.83-4.51); Absolute Neutrophil Count 4.6 X10^3/uL (2.0-7.7); Basophil# 0.01 X10^3/uL; Basophil% 0.2 % (0-1); Eosinophil# 0.04 X10^3/uL; Eosinophils% 0.6 % (0-5); Hematocrit 35.5 % (37-47); Hemoglobin 12.4 g/dL (12.0-15.0); Lymphocyte # 1.32 X10^3/ul (0.83-4.51); Lymphocyte % 20.9 % (19-41); Mean Corp Hgb Conc 34.9 g/dL (32-36); Mean Corpuscular Hgb 31.3 pg (27.0-32.0); Mean Corpuscular Volume 89.6 fL (81-99); Mean Platelet Vol. 11.2 fl (6.2-12.0); Monocyte# 0.37 X10^3/uL; Monocyte% 5.8 % (0-10); NRBC Flagged by Analyzer 0 % (0-5); Neutrophil # 4.56 X10^3/uL (2.7-7.7); Platelet Count 173 K/mm3 (150-450); RBC Distribution Width CV 12.5 % (11.6-14.6); RBC Distribution Width SD 40.8 fl (35.1-43.9); Red Blood Count 3.96 M/mm3 (4.2-5.4); White Blood Count 6.3 K/mm3 (4.4-11.0)
[2025-04-18 13:27] LABS: ALB/GLOB Ratio 1.6 RATIO (0.9-2.4); AST(SGOT) 22 U/L (<=31); Alanine Aminotransfer ALT/SGPT 23 U/L (<=34); Alkaline Phosphatase 33 U/L (35-104); Anion Gap 12 (5-15); BUN 9 mg/dL (4-19); BUN/Creat Ratio 19.3 RATIO (10-20); Carbon Dioxide 20.9 mmol/L (21.0-32.0); Chloride 102 mmol/L (98-108); Creatinine, Serum 0.45 mg/dL (0.70-1.20); EST Glomerular Filtration Rate 134 (>60); Globulin 2.5 g/dL (2.2-4.2); Glucose 95 mg/dL (70-99); HIV Nonreactive (Nonreactive); Hepatitis B Surface Antigen Nonreactive (Nonreactive); Hepatitis C Antibody Nonreactive (Nonreactive); Potassium 3.7 mmol/L (3.3-5.1); Protein, Total 6.5 g/dL (5.9-8.4); Rubella IgG Nonreactive (Nonreactive); Sodium Level 134 mmol/L (133-145); Syphilis Antibodies Nonreactive (Nonreactive); Total Bilirubin 0.23 mg/dL (0.00-1.30)
[2025-04-18 17:14] LABS: Protein, Urine (Random) < 6.0 mg/dL (0.0-12.0); Protein:Creat Ratio 103 mg/g CRE (0-200)
== END | disposition home or self-care (01) ==
PROVIDERS: Referring Provider Obstetrics & Gynecology; Visit Provider Obstetrics & Gynecology
DX: O09.90 Supervision of high risk pregnancy, unspecified, unspecified trimester (principal); Z3A.00 Weeks of gestation of pregnancy not specified; Z87.59 Personal history of other complications of pregnancy, childbirth and the puerperium
CPT/HCPCS: 36415; 80053; 82570; 84156; 85025; 86703; 86762; 86780; 86803; 86850; 86900; 86901; 87340

== ENCOUNTER → 2025-05-12 | Outpatient (CLI) | payer OTHER, SELFPAY ==
--- OUTSIDE RECORDS SUMMARY | 2025-05-12 23:01 | XMS RPT_ITS | CCD ---
Author Organization [facility] Care Team Providers Care Plumber Supervisor Name Role Phone Care Physician, No Primary Primary Care Provider Unavailable Care Physician, No Primary Referring Provider Un available Dr. Oly Adams Attending Provider [phone] Aneesh [employer] Attending Provider [phone] Care Physician, No Primary Primary Care Provider Unavailable Care Physician, No Primary Referring Provider Un available Dr. Oly Adams Attending Provider [phone] Dr. Nakia Keene Attending Provider [phone] Dr. Oly Adams Other Provider [phone] Dr. Nakia Keene Admit Provider Dr. Nakia Keene Referring Provider [phone] Dr. Nakia Keene Other Provider TYRESE FAN Primary Care Provider Dr. Jerardo Skaggs Attending Provider [phone] Dr. Nakia Keene DO Attending Provider Dr. Nakia Keene DO Referring Provider Nakia Keene Attending Nakia Jiménez Attending Nakia Jiménez Referring Gallito e Nakia Keene Attending Nakia Jiménez Referring Gallito e Nakia Keene Attending Jacinta Reed Attending Unavailable Dr. Oly Adams MD Attending Provider [phone] Medications Current Medications Medication Drug Class(es) Dates Sig (Normalized) Sig (Original) docosahexaenoic acid 200 mg oral capsule (3 sources) Start: 03-21-2025 Docosahexaenoic Acid ( Dha) 200 mg capsule Active mg PO March 21, 2025 12:00am Vit,Nahg17-Ptqf-Htyzi (6 sources) Start: 03-12-2019 take 1 tablet by mouth once daily Vit,Azkm46-Aalz-Gcvo c Active 1 TABLET PO DAILY March 12, 2019 2:13pm Start: 03-12-2019 take 1 tablet by speedy th once daily Vit,Nocf48-Aesd-Qranl Active 1 TABLET PO DAILY March 12, 2019 12:00am Completed/Discontinued Medications Medication Drug Class(es) Dates Sig (Normalized) Sig (Original) acetaminophen 325 mg / oxyCODONE hydrochloride 5 mg oral tablet (20 sources) Opioid Agonist Start: 08-24-2022 End: 09-02-2022 Oxycodone-Acetamino phen (Percocet) 5-325 mg tablet Discontinued 1 {tbl} PO Q4H as needed for pain 30 August 24, 2022 September 02, 2022 11:50am Start: 06-02-2020 End: 06-09-2020 Oxycodone-Acetaminophen 1 TA BLET tablet Discontinued 1 - 2 {tbl} PO EVERY 6 HOURS NEEDED as needed for Pain 15 7 June 02, 2020 June 08, 2020 12:00am June 09, 2020 12:02am Start: 06-02-2020 End: 06-09-2020 take 1 tablet by mouth every six hours as needed Oxycodone-Acetaminophen Discontinued 1 - 2 TABLET PO EVERY 6 HOURS NEEDED 15 7 June 02, 2020 June 09, 2020 12:02am Start: 03-14-2019 End: 03-21-2019 Oxycodone-Acetaminophen 1 TA BLET tablet Discontinued 1 - 2 {tbl} PO EVERY 4 HOURS NEEDED as needed for Pain 20 7 March 14, 2019 12:00am March 20, 2019 12:00am March 21, 2019 12:09am Start: 03-14-2019 End: 03-21-2019 take 1 tablet by mouth every four hours as needed Oxycodone-Acetaminophen Discontinued 1 - 2 TABLET PO EVERY 4 HOURS NEEDED 20 March 14, 2019 12:00am March 21, 2019 12:09am Early (9 sources) Start: 03-12-2019 End: 07-30-2020 Early Discontinued 250 MG PO March 12, 2019 2:13pm July 30, 2020 10:08am Start: 03-12-2019 End: 07-30-2020 Early 250 MG tablet Discon tinued 250 mg PO March 12, 2019 12:00am July 30, 2020 10:08am Start: 03-12-2019 End: 07-30-2020 Early Discontinued 250 MG PO March 12, 2019 12:00am July 30, 2020 10:08am calcium carbonate 1250 mg chewable tablet (9 sources) Start: 03-12-2019 End: 02-07-2022 Calcium Carbonate 500 MG tablet,chewable Discontinued 500 mg PO March 12, 2019 12:00am February 07, 2022 9:28am etonogestrel 68 mg drug implant (11 sources) Progestin Start: 07-30-2020 End: 02-07-2022 Etonogestrel (Nexplanon) 68 mg implant Discontinued 1 NMA subdermal ONCE July 30, 2020 12:00am February 07, 2022 9:28am as a single dose ibuprofen 800 mg oral tablet (4 sources) Nonsteroidal Anti-inflammatory Drug Start: 08-24-2022 End: 10-05-2022 take 1 tablet by mouth every eight hours as needed for pain Ibuprofen 800 mg tablet Discontinued 800 mg PO Q8H as needed for pain 25 06August 24, 2022 12:00am October 05, 2022 2:25pm naproxen 250 mg oral tablet (18 sources) Nonsteroidal Anti-inflammatory Drug Start: 03-14-2019 End: 07-30-2020 take 250-500 mg by mouth every eight hours as needed for pain Naproxen 250 MG tablet Discontinued 250 - 500 mg PO EVERY 8 HOURS NEEDED as needed for MILD PAIN June 02, 2020 12:00am July 30, 2020 10:08am nystatin 100 unt/mg topical powder (3 sources) Polyene Antifungal Start: 10-05-2022 End: 07-01-2024 Nystatin 100,000 unit/gram powder Discontinued 1 NMA TOPICAL TWICE A DAY October 05, 2022 1:00am July 01, 2024 2:15pm Vit,Zvfl96-Rsep-Moq ic 1 TABLET tablet (3 sources) Start: 03-12-2019 End: 07-01-2024 take 1 tablet by mouth once daily Vit,Nobh69-Mvlk-Xues c 1 TABLET tablet Discontinued 1 {tbl} PO DAILY March 12, 2019 12:00am July 01, 2024 2:15pm saccharomyces boulardii 250 mg oral capsule (6 sources) Start: 07-15-2022 End: 03-21-2025 take 1 capsule by mouth once daily Saccharomyces Boulardii (Daily Probiotic (S. Boulardii)) 250 mg capsule Discontinued 5000 NMA PO DAILY July 15, 2022 12:00am March 21, 2025 1:47pm Problems Active Problems Problem Classification Problem Date Documented Date Episodic/Chronic Acute posthemorrhagic anemia (9 sources) Acute posthemorrhagic anemia; Translations: [Acute posthemorrhagic anemia] 03-21-2025 Episodic Other complications of ; puerperium affecting management of mother (7 sources) Disorder of structure; Translations: [Maternal care for other (suspected) abnormality and damage, not applicable or unspecified] 03-21-2025 Episodic Comment on above: possible unilateral, offered genetic counseling and consultation with treatment center- declined. plan follow up after . No club foot upon . Other complications of ; puerperium affecting management of mother (20 sources) Maternal care for other (suspected) abnormality and damage, not applicable or unspecified; Translations: [Other known or suspected abnormality, not elsewhere classified, affecting management of mother, antepartum condition or complication] Episodic Other complications of (18 sources) High risk ; Translations: [Supervision of high risk , unspecified, unspecified trimester] 03-21-2025 Episodic Comment on above: , MICHAEL 10/29/25, P C: [facility] [employer] [facility], : Adrian PRR SP labs MICHAEL 09/18/22 PC Kd, [facility] Adrian PRR , MICHAEL 5, PC: [facility] [employer], : Adrian Other complications of (20 sources) Supervision of high risk , unspecified, unspecified trimester; Translations: [Supervision of unspecified high-risk ] Onset: 04-24-2025 Episodic Other complications of (8 sources) Rubella non-immune; Translations: [Supervision of other high risk pregnancies, unspecified trimester] 07-01-2024 Episodic Comment on above: discussed avoidance, consider MMR Other complications of (20 sources) Supervision of other high risk pregnancies, unspecified trimester; Translations: [Other specified complications of , antepartum condition or complication] Onset: 04-18-2025 Episodic Other complications of (7 sources) Thrombocytopenic disorder; Translations: [Other diseases of the blood and blood-forming organs and certain disorders involving the immune mechanism complicating , unspecified trimester] 07-01-2024 Episodic Comment on above: rpt 4 wk Other complications of (18 sources) Other diseases of the blood and blood-forming organs and certain disorders involving the immune mechanism complicating , unspecified trimester; Translations: [Coagulation defects complicating , childbirth, or the puerperium, unspecified as to episode of care or not applicable] Episodic Other complications of (9 sources) H/O: depression; Translations: [History of depression, currently ] 03-21-2025 Episodic Other complications of (9 sources) H/O: premature delivery; Translations: [Supervision of other high risk pregnancies, unspecified trimester] 03-21-2025 Episodic Comment on above: Last - 35w k delivery Other injuries and conditions due to external causes (15 sources) History of uterine laceration; Translations: [Personal history of other (healed) physical injury and trauma] 03-21-2025 Episodic Comment on above: 2020 - Other injuries and conditions due to external causes (20 sources) Personal history of other (healed) physical injury and trauma; Translations: [Personal history of other injury] Onset: 04-18-2025 Episodic Other and delivery including normal (20 sources) ; Translations: [Encounter for supervision of normal , unspecified, unspecified trimester] Onset: 03-21-2025 Episodic Comment on above: Discussed genetic/ca rrier testing - undecided GBS neg. genetic, ca rrier, and ntd screening declined. dec std labs until delivery. low WBC count and platelets - repeat next visit Other screening for suspected conditions (not mental disorders or infectious disease) (1 source) Encounter for screening for malignant neoplasm of cervix; Translations: [Encounter for screening for malignant neoplasm of cervix] Onset: 03-21-2025 Episodic Previous (1 source) Maternal care for unspecified type scar from previous delivery; Translations: [Maternal care for unspecified type scar from previous delivery] Onset: 04-18-2025 Episodic Residual codes; unclassified (18 sources) H/O: eclampsia; Translations: [Personal history of other complications of , childbirth and the puerperium] 03-21-2025 Episodic Comment on above: 1st - w/se izures; Pre-e baseline labs ordered w/[facility]. 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 Pre E labs done at [facility]. 81 mg asa at 14 weeks. Residual codes; unclassified (20 sources) History of uterine scar from previous surgery; Translations: [Other postprocedural status] Episodic Residual codes; unclassified (20 sources) Personal history of other complications of , childbirth and the puerperium; Translations: [Personal history of other genital system and obstetric disorders] Onset: 04-18-2025 Episodic Residual codes; unclassified (3 sources) Tetanus diphtheria and acellular pertussis vaccination declined; Translations: [Immunization not carried out because of patient refusal] Episodic Residual codes; unclassified (13 sources) Immunization not carried out because of patient refusal; Translations: [Vaccination not carried out because of patient refusal] Episodic Residual codes; unclassified (1 source) 12 weeks gestation of ; Translations: [12 weeks gestation of ] Onset: 04-18-2025 Episodic Screening and history of mental health and substance abuse codes (1 source) Personal history of other mental and behavioral disorders; Translations: [Personal history of other mental and behavioral disorders] Onset: 04-18-2025 Episodic Unclassified (1 source) Other specified diseases and conditions complicating ; Translations: [Other specified diseases and conditions complicating ] Onset: 04-18-2025 Past or Other Problems Problem Classification Problem Date Documented Date Episodic/Chronic Contraceptive and procreative management (1 source) Encounter for removal of intrauterine contraceptive device; Translations: [Encounter for removal of intrauterine contraceptive device] Onset: 07-01-2024 Episodic Results Test Name Value Interpretation Reference Range Facility Absolute lymphocyte countOrd ered By: Nakia Briones on 04-18-2025 Lymphocytes Auto (Unsp spec) [#/Vol] 1.32 10*3/uL 0.83-4.51 [facility] Absolute neutrophil countOrd ered By: Nakia Briones on 04-18-2025 Neutrophils (Bld) [#/Vol] 4.6 10*3/uL 2.0-7.7 [facility] Anion gap in Serum or Plasma Ordered By: Nakia Briones on 04-18-2025 Anion gap [Moles/Vol] 12 mmol/L 5-15 [facility] Automated lymphocyte count a s percentage of total leukocytesOrdered By: Nakia Briones on 04-18-2025 Lymphocytes/100 WBC Auto (Unsp spec) 20.9 % - [facility] BUN/creatinine ratioOrdered By: Nakia Briones on 04-18-2025 Urea nitrogen/Creatinine [Mass ratio] 19.3 mg/mg 10- [facility] Basophil percentageOrdered B y: Nakia Briones on 04-18-2025 Basophils/100 WBC (Bld) 0.2 % 0-1 [facility] Bilirubin, totalOrdered By: Nakia Briones on 04-18-2025 Bilirubin [Mass/Vol] 0.23 mg/dL 0.00-1.30 [facility] CBC W/Diff, Automatedon 03-28 Absolute Lymph 1.32 X10 3/uL Normal 0.83-4.51 [facility] Comment on above: Performed By: #### L 3890.6301, BTS, L509.4006, L500.4050, L100.0100, L509.8002, L3890.6102, L3890.6006 #### [facility] [address] [place], [place], [id number] Absolute Neut 4.6 X10 3/uL Normal 2.0-7.7 [facility] Comment on above: Performed By: #### L 3890.6301, BTS, L509.4006, L500.4050, L100.0100, L509.8002, L3890.6102, L3890.6006 #### [facility] [address] [place], [address] Basophils/100 WBC (Bld) 0.2 % Normal 0-1 [facility] Comment on above: Performed By: #### L 3890.6301, BTS, L509.4006, L500.4050, L100.0100, L509.8002, L3890.6102, L3890.6006 #### [facility] [address] [place], [address] Eosinophils/100 WBC (Bld) 0.6 % Normal 0-5 [facility] Comment on above: Performed By: #### L 3890.6301, BTS, L509.4006, L500.4050, L100.0100, L509.8002, L3890.6102, L3890.6006 #### [facility] [address] [place], [address] Erythrocyte distribution width (RBC) [Ratio] 12.5 % Normal 11.6-14.6 [facility] Comment on above: Performed By: #### L 3890.6301, BTS, L509.4006, L500.4050, L100.0100, L509.8002, L3890.6102, L3890.6006 #### [facility] [address] [place], [address] Hematocrit (Bld) [Volume fraction] 35.5 % Low 37-47 [facility] Comment on above: Performed By: #### L 3890.6301, BTS, L509.4006, L500.4050, L100.0100, L509.8002, L3890.6102, L3890.6006 #### [facility] [address] [place], [address] Hemoglobin (Bld) [Mass/Vol] 12.4 g/dL Normal 12.0-15.0 [facility] Comment on above: Performed By: #### L 3890.6301, BTS, L509.4006, L500.4050, L100.0100, L509.8002, L3890.6102, L3890.6006 #### [facility] [address] [place], [address] IG% 0.500 Normal 0.0-0.9 [facility] Comment on above: Result Comment: IG% - Immature Granulocytes (promyelocytes, myelocytes and metamyelocytes) > 1% indicates that a LEFT SHIFT is Present. Performed By: #### L 3890.6301, BTS, L509.4006, L500.4050, L100.0100, L509.8002, L3890.6102, L3890.6006 #### [facility] [address] [facility] [place], [address] Lymphocytes/100 WBC (Bld) 20.9 % Normal 19-41 [facility] Comment on above: Performed By: #### L 3890.6301, BTS, L509.4006, L500.4050, L100.0100, L509.8002, L3890.6102, L3890.6006 #### [facility] [address] [place], [address] MCH (RBC) [Entitic mass] 31.3 pg Normal 27.0-32.0 [facility] Comment on above: Performed By: #### L 3890.6301, BTS, L509.4006, L500.4050, L100.0100, L509.8002, L3890.6102, L3890.6006 #### [facility] [address] [place], [address] MCHC (RBC) [Mass/Vol] 34.9 g/dL Normal 32-36 [facility] Comment on above: Performed By: #### L 3890.6301, BTS, L509.4006, L500.4050, L100.0100, L509.8002, L3890.6102, L3890.6006 #### [facility] [address] [place], [address] MCV (RBC) [Entitic vol] 89.6 fL Normal 81-99 [facility] Comment on above: Performed By: #### L 3890.6301, BTS, L509.4006, L500.4050, L100.0100, L509.8002, L3890.6102, L3890.6006 #### [facility] [address] [place], [address] Monocytes/100 WBC (Bld) 5.8 % Normal 0-10 [facility] Comment on above: Performed By: #### L 3890.6301, BTS, L509.4006, L500.4050, L100.0100, L509.8002, L3890.6102, L3890.6006 #### [facility] [address] [place], [address] Neutrophils/100 WBC (Bld) 72.0 % High 47-70 [facility] Comment on above: Performed By: #### L 3890.6301, BTS, L509.4006, L500.4050, L100.0100, L509.8002, L3890.6102, L3890.6006 #### [facility] [address] [place], [address] Nucleated RBC (Bld) [#/Vol] 0 10*3/uL Normal 0-5 [facility] Comment on above: Performed By: #### L 3890.6301, BTS, L509.4006, L500.4050, L100.0100, L509.8002, L3890.6102, L3890.6006 #### [facility] [address] [place], [address] Platelet mean volume (Bld) [Entitic vol] 11.2 fL Normal 6.2-12.0 [facility] Comment on above: Performed By: #### L 3890.6301, BTS, L509.4006, L500.4050, L100.0100, L509.8002, L3890.6102, L3890.6006 #### [facility] [address] [place], [address] Platelets (Bld) [#/Vol] 173 10*3/uL Normal 150-450 [facility] Comment on above: Performed By: #### L 3890.6301, BTS, L509.4006, L500.4050, L100.0100, L509.8002, L3890.6102, L3890.6006 #### [facility] [address] [place], [address] RBC (Bld) [#/Vol] 3.96 10*6/uL Low 4.2-5.4 [facility] Comment on above: Performed By: #### L 3890.6301, BTS, L509.4006, L500.4050, L100.0100, L509.8002, L3890.6102, L3890.6006 #### [facility] [address] [place], [address] RDW SD 40.8 fl Normal 35.1-43.9 [facility] Comment on above: Performed By: #### L 3890.6301, BTS, L509.4006, L500.4050, L100.0100, L509.8002, L3890.6102, L3890.6006 #### [facility] [address] [place], [address] WBC (Bld) [#/Vol] 6.3 10*3/uL Normal 4.4-11.0 [place] Comment on above: Performed By: #### L 3890.6301, BTS, L509.4006, L500.4050, L100.0100, L509.8002, L3890.6102, L3890.6006 #### [facility] [address] [place], [address] Carbon dioxide, total [Moles /volume] in Central venous bloodOrdered By: Nakia Briones on 04-18-2025 CO2 [Moles/Vol] 20.9 mmol/L Low 21.0-32.0 [facility] Chloride assayOrdered By: Tommie Briones on 04-18-2025 Chloride [Moles/Vol] 102 mmol/L 98-108 [facility] Comprehensive Metabolic Prof ilon 04-18-2025 Albumin [Mass/Vol] 4.0 g/dL Normal 3.5-5.0 [place] Comment on above: Performed By: #### L 3890.6301, BTS, L509.4006, L500.4050, L100.0100, L509.8002, L3890.6102, L3890.6006 #### [facility] [address] [place], [address] Albumin/Globulin [Mass ratio] 1.6 {ratio} Normal 0.9-2.4 [facility] Comment on above: Performed By: #### L 3890.6301, BTS, L509.4006, L500.4050, L100.0100, L509.8002, L3890.6102, L3890.6006 #### [facility] [address] [place], [address] ALK PHOS 33 U/L Low 35-104 [facility] Comment on above: Performed By: #### L 3890.6301, BTS, L509.4006, L500.4050, L100.0100, L509.8002, L3890.6102, L3890.6006 #### [facility] [address] [place], [address] ALT [Catalytic activity/Vol] 23 U/L Normal <=34 [facility] Comment on above: Performed By: #### L 3890.6301, BTS, L509.4006, L500.4050, L100.0100, L509.8002, L3890.6102, L3890.6006 #### [facility] [address] [place], [address] AST [Catalytic activity/Vol] 22 U/L Normal <=31 [facility] Comment on above: Performed By: #### L 3890.6301, BTS, L509.4006, L500.4050, L100.0100, L509.8002, L3890.6102, L3890.6006 #### [facility] [address] [place], [address] Bilirubin [Mass/Vol] 0.23 mg/dL Normal 0.00-1.30 [facility] Comment on above: Performed By: #### L 3890.6301, BTS, L509.4006, L500.4050, L100.0100, L509.8002, L3890.6102, L3890.6006 #### [facility] [address] [place], [address] BUN/CRE 19.3 RATIO Normal 10-20 [facility] Comment on above: Performed By: #### L 3890.6301, BTS, L509.4006, L500.4050, L100.0100, L509.8002, L3890.6102, L3890.6006 #### [facility] [address] [place], [address] Calcium [Mass/Vol] 9.0 mg/dL Normal 7.6-11.0 [place] Comment on above: Performed By: #### L 3890.6301, BTS, L509.4006, L500.4050, L100.0100, L509.8002, L3890.6102, L3890.6006 #### [facility] [address] [place], [address] Chloride [Moles/Vol] 102 mmol/L Normal 98-108 [facility] Comment on above: Performed By: #### L 3890.6301, BTS, L509.4006, L500.4050, L100.0100, L509.8002, L3890.6102, L3890.6006 #### [facility] [address] [place], [address] CO2 [Moles/Vol] 20.9 mmol/L Low 21.0-32.0 [facility] Comment on above: Performed By: #### L 3890.6301, BTS, L509.4006, L500.4050, L100.0100, L509.8002, L3890.6102, L3890.6006 #### [facility] [address] [place], [address] Creatinine [Mass/Vol] 0.45 mg/dL Low 0.70-1.20 [facility] Comment on above: Performed By: #### L 3890.6301, BTS, L509.4006, L500.4050, L100.0100, L509.8002, L3890.6102, L3890.6006 #### [facility] [address] [place], [address] GAP 12 Normal 5-15 [facility] Comment on above: Performed By: #### L 3890.6301, BTS, L509.4006, L500.4050, L100.0100, L509.8002, L3890.6102, L3890.6006 #### [facility] [address] [place], [address] GFR/1.73 sq M.predicted among non-blacks MDRD (S/P/Bld) [Vol rate/Area] 134 mL/min/{1.73_m2} Normal >60 [facility] Comment on above: Result Comment: mL/m in/1.73m2 CKD-EPI Creatinine Equation (2020) Performed By: #### L 3890.6301, BTS, L509.4006, L500.4050, L100.0100, L509.8002, L3890.6102, L3890.6006 #### [facility] [address] [place], [address] Globulin (S) [Mass/Vol] 2.5 g/dL Normal 2.2-4.2 [facility] Comment on above: Performed By: #### L 3890.6301, BTS, L509.4006, L500.4050, L100.0100, L509.8002, L3890.6102, L3890.6006 #### [facility] [address] [place], [address] Glucose [Mass/Vol] 95 mg/dL Normal 70-99 [place] Comment on above: Performed By: #### L 3890.6301, BTS, L509.4006, L500.4050, L100.0100, L509.8002, L3890.6102, L3890.6006 #### [facility] [address] [place], [address] Potassium [Moles/Vol] 3.7 mmol/L Normal 3.3-5.1 [facility] Comment on above: Performed By: #### L 3890.6301, BTS, L509.4006, L500.4050, L100.0100, L509.8002, L3890.6102, L3890.6006 #### [facility] [address] [place], [address] Sodium [Moles/Vol] 134 mmol/L Normal 133-145 [place] Comment on above: Performed By: #### L 3890.6301, BTS, L509.4006, L500.4050, L100.0100, L509.8002, L3890.6102, L3890.6006 #### [facility] [address] [place], [address] T PROT 6.5 g/dL Normal 5.9-8.4 [facility] Comment on above: Performed By: #### L 3890.6301, BTS, L509.4006, L500.4050, L100.0100, L509.8002, L3890.6102, L3890.6006 #### [facility] [address] [place], [address] Urea nitrogen [Mass/Vol] 9 mg/dL Normal 4-19 [facility] Comment on above: Performed By: #### L 3890.6301, BTS, L509.4006, L500.4050, L100.0100, L509.8002, L3890.6102, L3890.6006 #### [facility] [address] [place], [address] Eosinophil percentageOrdered By: Nakai Briones on 04-18-2025 Eosinophils/100 WBC (Bld) 0.6 % 0-5 [facility] Erythrocyte distribution wid th ratioOrdered By: Nakia Briones on 04-18-2025 Erythrocyte distribution width (RBC) [Ratio] 12.5 % 11.6-14.6 [facility] Erythrocyte distribution wid th standard deviationOrdered By: Nakia Briones on 04-18-2025 Erythrocyte distribution width (RBC) [Ratio] 40.8 fl 35.1-43.9 [facility] Glomerular filtration rate ( GFR) estimation/1.73 sq m using serum, plasma, or whole bOrdered By: Nakia Briones on 04-18-2025 GFR/1.73 sq M.predicted among non-blacks MDRD (S/P/Bld) [Vol rate/Area] 134 mL/min/{1.73_m2} >60 [facility] Comment on above: mL/min/1.73m2 CKD-EP I Creatinine Equation (2020) HIVon 04-18-2025 HIV Non-Reactive Normal Nonreactive [facility] Comment on above: Result Comment: Non- Reactive Reactive Repeatedly reactive samples must be confirmed according to CDC recommended confirmatory algorithms. The subresults for either HIVAG or AHIV can be used as an aid in the selection of the confirmation algorithm for reactive samples. Send out specimens with Reactive results to [facility] for confirmation. Order the HIV antibody detection and differentiation: lc#[id number] Performed By: #### L 3890.6301, BTS, L509.4006, L500.4050, L100.0100, L509.8002, L3890.6102, L3890.6006 ####[facility] [address] [place], [address] Hematocrit Auto (Bld) [Volum e fraction]Ordered By: Nakia Briones on 04-18-2025 Hematocrit (Bld) [Volume fraction] 35.5 % Low 37-47 [facility] Hemoglobin measurementOrdere d By: Nakia Briones on 04-18-2025 Hemoglobin (Bld) [Mass/Vol] 12.4 g/dL 12.0-15.0 [facility] Hepatitis C Antibodyon 04-18 Hepatitis C Ab Non-Reactive Normal Nonreactive [facility] Comment on above: Result Comment: Reac tive: Presumptive evidence of antibodies to HCV. Follow CDC recommendations for supplemental testing. Non-Reactive: Antibodies to HCV were not detected; does not exclude the possibility of exposure to HCV Reactive Results are presumptive evidence of antibodies to HCV. Follow CDC recommendations for supplemental testing. Order confirmation testing: HCV Quant by PCR testing - HCVPCR #[id number] Non Reactive: < 0.8 Equivocal: >/= 0.8 to < 1.0 Reactive: >/= 1.0 The CDC requires that a reactive/equivocal HCV antibody result be sent out for confirmation. HCV Quant by PCR testing. Performed By: #### L 3890.6301, BTS, L509.4006, L500.4050, L100.0100, L509.8002, L3890.6102, L3890.6006 ####[facility] [address] [place], [place], [id number] Immature granulocytes/100 WB C Auto (Bld)Ordered By: Nakia Briones on 04-18-2025 Immature granulocytes/100 WBC (Bld) 0.500 % 0.0-0.9 [facility] Comment on above: IG% - Immature Granu locytes (promyelocytes, myelocytes and metamyelocytes) > 1% indicates that a LEFT SHIFT is Present. L3890.6102on 04-18-2025 HEP B Surf Ag Non-Reactive Normal Nonreactive [facility] Comment on above: Result Comment: Reac tive: Presumptive evidence of HBV. Repeatedly reactive samples must be confirmed using a neutralization test ([employer] HBsAg Confirmatory Test) Non-Reactive: HBsAg not detected; does not exclude the possibility of exposure to HBV Performed By: #### L 3890.6301, BTS, L509.4006, L500.4050, L100.0100, L509.8002, L3890.6102, L3890.6006 ####[facility] [address] [place], [place], [id number] L509.4006on 04-18-2025 Rubella IgG Non-Reactive Normal Nonreactive [facility] Comment on above: Result Comment: Anti body Result: Interpretation Non-Reactive: Non-Immune Reactive: Immune The following results were obtained with the [employer] Rubella IgG assay. Results from assays of other manufacturers cannot be used interchangeably. Performed By: #### L 3890.6301, BTS, L509.4006, L500.4050, L100.0100, L509.8002, L3890.6102, L3890.6006 #### [facility] [address] [place], [address] Laboratory - Chemistry and C hemistry - challengeOrdered By: Nakia Briones on 04-18-2025 AST [Catalytic activity/Vol] 22 U/L <32 [facility] Glucose Ql (U) Negative [facility] Laboratory - Microbiology an d Antimicrobial susceptibilityOrdered By: Nakia Briones on 04-18-2025 HBV surface Ag Ql (S) Non-Reactive Nonreactive [facility] Comment on above: Reactive: Presumptiv e evidence of HBV. Repeatedly reactive samples must be confirmed using a neutralization test ([employer] HBsAg Confirmatory Test)Non-Reactive: HBsAg not detected; does not exclude the possibility of exposure to HBV Laboratory - UrinalysisOrder ed By: Nakia Briones on 04-18-2025 Protein Ql (U) Negative [facility] MCV (mean corpuscular volume ) determinationOrdered By: Nakia Briones on 04-18-2025 MCV (RBC) [Entitic vol] 89.6 fL 81-99 [facility] Mean corpuscular hemoglobin (MCH) determinationOrdered By: Nakia Briones on 04-18-2025 MCH (RBC) [Entitic mass] 31.3 pg 27.0-32.0 [facility] Mean corpuscular hemoglobin concentration (MCHC) determinationOrdered By: Nakia Briones on 04-18-2025 MCHC (RBC) [Mass/Vol] 34.9 g/dL 32-36 [facility] Mean platelet volume determi nationOrdered By: Nakia Briones on 04-18-2025 Platelet mean volume (Bld) [Entitic vol] 11.2 fL 6.2-12.0 [facility] Monocyte percentageOrdered B y: Nakia Briones on 04-18-2025 Monocytes/100 WBC (Bld) 5.8 % 0-10 [facility] Neutrophil percentageOrdered By: Nakia Briones on 04-18-2025 Neutrophils/100 WBC (Bld) 72.0 % High 47-70 [facility] No Panel InformationOrdered By: Nakia Briones on 04-18-2025 HIV (1&2) Antibody Non-Reactive Nonreactive [facility] Comment on above: Non-ReactiveReactive Repeatedly reactive samples must be confirmed according to CDC recommended confirmatory algorithms. The subresults for either HIVAG or AHIV can be used as an aid in the selection of the confirmation algorithm for reactive samples.Send out specimens with Reactive results to [facility] for confirmation.Order the HIV antibody detection and differentiation: #[id number] Nucleated red blood cell per centageOrdered By: Nakia Briones on 04-18-2025 Nucleated RBC/100 WBC (Bld) [Ratio] 0 % 0-5 [facility] Supervisor Farm Equipment Maintenance Office Visit Reporton 04-18-2025 Supervisor Farm Equipment Maintenance Office Visit Report [facility] [address], [address] [place] [address] OFFICE VISIT Date of Service: 04/18/25 MR#: [id number] Acct: [id number] Name: ROBIN ORTEGA Rep #: [id number] : 1995 Provider: Dr. Nakia Carranza DO Age/Sex: 30/F Location: [facility] Status: Signed Intake Vital Signs 03/21/25 14:23 04/18/25 11:35 04/18/25 11:36 Height 5 ft 5 ft 5 ft Weight: 126 lb 4 oz BMI 24.6 BP 101/64 Intake Visit Reasons: 12 wk ob *csection Student Services Dean Required: No Is patient in pain?: No Allergies No Known Allergies Allergy (Verified 04/18/25 11:35) Medications ???Medication ???Instructions ???Recorded ???Confirmed ???Type docosahexaenoic acid 200 mg mg PO 03/21/25 04/18/25 History capsule ( DHA) Last Menstrual Period: 01/22/25 Zika: Zika virus screening: Negative : No PFSH PFSH Medical History History of rupture of uterus Anxiety and depression Rubella non-immune status, antepartum Superficial varicosities Headache Surgical History History of delivery Social History adopted: No household members: spouse and children number of children: 3 current occupation: [employer] current occupational exposures/hazards: No pets and animals: Yes pets and animals: cat(s), dog(s) and farm animals history of recent travel: No sexually active: Yes Smoking Status: Never smoker alcohol intake: never substance use type: does not use well-balanced diet: daily or most days caffeine: No eating out: rarely or never during the past year weight has: remained stable what type of physical activity do you participate in: walking arcadio/mormonism: [facility] seatbelt use: never do you feel safe at home: Yes additional social history: : Mazin Santillan History 4 Elective abortions 0 Hx Para 3 Spontaneous abortions 0 Hx # Term Pregnancies 2 Ectopic pregnancies 0 Hx # Pregnancies 1 Multiple births 0 # of living children 3 Past Pregnancies Del. Date Name GA/Weeks Outcome Route Bth Weight Gen Labor Lgth Anesthesia Del Locatn Provider FOB 03/12/19 Kd 40 live - full term 9lbs 9oz Male spinal [facility] Adrian 06/02/20 Ada 38 live - full term 6lbs 12oz Female spinal [facility] Adrian 08/24/22 Gregory 35 live - 6lbs 2oz Male spinal [facility] n[facility] Velde Adrian Delivery Date: 03/12/19 Last Updated by: Oly Adams MD preeclampsia Delivery Date: 06/02/20 Last Updated by: Naomie Swann RN uterine rupture HPI 12 wk ob *csection Details: ROBIN ORTEGA is a 30 year old who presents for routine OB visit. OB Visit MICHAEL Calculator Estimated Delivery Date Method Current WG Current Estimate 10/29/25 LMP (Certain) 12w 2d Other Estimates 10/27/25 Ultrasound #1 12w 4d Expected Delivery Route/Plan for repeat cs Specific Issue/Plans Covid status: [] Flu vaccine: [] Tdap vaccine: [] Rhogam: [] LARC form signed: [] Problem list reviewed and updated with the most current plan of care details and appropriate orders placed. Relevant counseling for the gestational age provided. Continue routine care and follow up unless otherwise noted in visit notes/problem list details Initial Weight: Not Recorded Date -???-???-???-???-??? -???-???-???-???-??? -???-???- EGA Weight BP Urine Prot -???-???-???-???-??? -???-???-???-???-??? -???-???- Glucose FHR FuHt Pres Dilation -???-???-???-???-??? -???-???-???-???-??? -???-???- Effaced St Visit Note 03/21/25 -???-???-???-???-??? -???-???-???-???-??? -???-???- 8w 2d 126 lb 4 oz 118/62 -???-???-???-???-??? -???-???-???-???-??? -???-???- 178 -???-???-???-???-??? -???-???-???-???-??? -???-???- JV-CRL consi stent with LMP. declines NIPT. 04/18/25 -???-???-???-???-??? -???-???-???-???-??? -???-???- 12w 2d 126 lb 4 oz 101/64 -???-???-???-???-??? -???-???-???-???-??? -???-???- 150 -???-???-???-???-??? -???-???-???-???-??? -???-???- JDonald- pt notic ed some spotting a few days after her last visit. She admitted to drinking red raspberry leaf tea. importance of refraining from this and other natural substances without consulting with us first discussed. ok to resume red raspberry leaf tea AFTER 37 weeks. labs today ACOG First Trimester First Trimester: Discussed Second Trimester Second Trimester: Signs and Symptoms of Labor, Selecting a care provider, Reproductive Life Planning Contreception, Care Planning and Intimate Partner Violence; Discussed Tobacco Cessation and Discussed Depress (more content not included)... Normal [facility] Platelet countOrdered By: Tommie Briones on 04-18-2025 Platelets (Bld) [#/Vol] 173 10*3/uL 150-450 [facility] Potassium measurement (mass/ volume)Ordered By: Nakia Briones on 04-18-2025 Potassium (Unsp spec) [Mass/Vol] 3.7 mmol/L 3.3-5.1 [facility] Protein+Creatinine Ratio,Uri neon 04-18-2025 PROT:CRE RATIO 103 mg/g CRE Normal 0-200 [facility] Comment on above: Performed By: #### L 501.0900 #### [facility] [address] [place], [address] PROTEIN,UR.RAN. < 6.0 Normal 0.0-12.0 [facility] Comment on above: Performed By: #### L 501.0900 #### [facility] [address] [place], [address] UR CREAT 40.80 mg/dL Normal 28.00-217.00 [facility] Comment on above: Performed By: #### L 501.0900 #### [facility] [address] [place], [address] RBC Auto (Bld) [#/Vol]Ordere d By: Nakia Briones on 04-18-2025 RBC (Bld) [#/Vol] 3.96 10*6/uL Low 4.2-5.4 [facility] Random urine creatinine zafar urement (mass/volume)Ordered By: Nakia Briones on 04-18-2025 Creatinine Unsp time (U) [Mass/Vol] 40.80 mg/dL 28.00-217.00 [facility] Serum creatinine measurement (mass/volume)Ordered By: Nakia Briones on 04-18-2025 Creatinine [Mass/Vol] 0.45 mg/dL Low 0.70-1.20 [facility] Serum globulin measurementOr dered By: Nakia Briones on 04-18-2025 Globulin (S) [Mass/Vol] 2.5 g/dL 2.2-4.2 [facility] Serum glucose measurement (m ass/volume)Ordered By: Nakia Briones on 04-18-2025 Glucose [Mass/Vol] 95 mg/dL 70-99 [place] Serum or plasma alanine acevedo otransferase (ALT) measurementOrdered By: Nakia Briones on 04-18-2025 ALT [Catalytic activity/Vol] 23 U/L <35 [facility] Serum or plasma albumin zafar urement (mass/volume)Ordered By: Nakia Briones on 04-18-2025 Albumin [Mass/Vol] 4.0 g/dL 3.5-5.0 [place] Serum or plasma albumin/glob ulin mass ratioOrdered By: Nakia Briones on 04-18-2025 Albumin/Globulin [Mass ratio] 1.6 {ratio} 0.9-2.4 [facility] Serum or plasma alkaline glendy sphatase measurementOrdered By: Nakia Briones on 04-18-2025 ALP [Catalytic activity/Vol] 33 U/L Low 35-104 [facility] Serum or plasma calcium zafar urement (mass/volume)Ordered By: Nakia Briones on 04-18-2025 Calcium [Mass/Vol] 9.0 mg/dL 7.6-11.0 [place] Serum or plasma urea nitroge n measurement (mass/volume)Ordered By: Nakia Briones on 04-18-2025 Urea nitrogen [Mass/Vol] 9 mg/dL 4-19 [facility] Sodium levelOrdered By: Ai Briones on 04-18-2025 Sodium [Moles/Vol] 134 mmol/L 133-145 [place] Syphilis Antibodieson 2024 Syphilis Abs Non-Reactive Normal Nonreactive [facility] Comment on above: Performed By: #### L 3890.6301, BTS, L509.4006, L500.4050, L100.0100, L509.8002, L3890.6102, L3890.6006 ####[facility] [address] [place], [address] Total proteinOrdered By: Diana Briones on 04-18-2025 Protein [Mass/Vol] 6.5 g/dL 5.9-8.4 [place] Type AND Screenon 04-18-2025 ABO and Rh group Nom (Bld) Blood group A Rh(D) positive Normal [facility] Comment on above: Order Comment: PN Performed By: #### L 3890.6301, BTS, L509.4006, L500.4050, L100.0100, L509.8002, L3890.6102, L3890.6006 #### [facility] [address] [place], [address] Urine protein measurement (m ass/volume)Ordered By: Nakia Briones on 04-18-2025 Protein (U) [Mass/Vol] mg/dL 0.0-12.0 [facility] Urine protein/creatinine mas s ratioOrdered By: Nakia Briones on 04-18-2025 Protein/Creatinine (U) [Mass ratio] 103 mg/g CRE 0-200 [facility] White blood cell (WBC) count Ordered By: Nakia Briones on 04-18-2025 WBC (Bld) [#/Vol] 6.3 10*3/uL 4.4-11.0 [place] PAP I-G w/rfx hrHPV-Aptimaon 03-26-2025 ADEQ Comment Normal . [facility] Comment on above: Order Comment: Speci men Comment: [id number] Specimen Comment: Source.............Cervix Specimen Comment: Other.............. Specimen Comment: No. of containers..01 ThinPrep Vial Result Comment: Sati sfactory for evaluation. No endocervical component is identified. An endocervical component is not commonly seen in the patient. Performed By: #### L 7400.0353, L7000.1800 #### [facility] [address] [place], [place], [id number] COMM . Normal . [facility] Comment on above: Order Comment: Speci men Comment: [id number] Specimen Comment: Source.............Cervix Specimen Comment: Other.............. Specimen Comment: No. of containers..01 ThinPrep Vial Performed By: #### L 7400.0353, L7000.1800 #### [facility] [address] [place], [place], [address] COMMENT Comment Normal . [facility] Comment on above: Order Comment: Speci men Comment: [id number] Specimen Comment: Source.............Cervix Specimen Comment: Other.............. Specimen Comment: No. of containers..01 ThinPrep Vial Result Comment: This liquid based ThinPrep(R) pap test was screened with the use of an image guided system. Performed By: #### L 7400.0353, L7000.1800 #### [facility] [address] [place], [place], [id number] DIAG Comment Normal . [facility] Comment on above: Order Comment: Speci men Comment: [id number] Specimen Comment: Source.............Cervix Specimen Comment: Other.............. Specimen Comment: No. of containers..01 ThinPrep Vial Result Comment: NEGA TIVE FOR INTRAEPITHELIAL LESION OR MALIGNANCY. Performed By: #### L 7400.0353, L7000.1800 #### [facility] [address] [place], [place], [address] HPV RFLX Comment Normal . [facility] Comment on above: Order Comment: Speci men Comment: [id number] Specimen Comment: Source.............Cervix Specimen Comment: Other.............. Specimen Comment: No. of containers..01 ThinPrep Vial Result Comment: The HPV DNA reflex criteria were not met with this specimen result therefore, no HPV testing was performed. Performed at: [address] [id number] Mouthpiece Maker: Michelle Casper MD, Phone: [phone] Performed By: #### L 7400.0353, L7000.1800 #### [facility] [address] [place], [address] PAPSMR Comment Normal . [facility] Comment on above: Order Comment: Speci men Comment: [id number] Specimen Comment: Source.............Cervix Specimen Comment: Other.............. Specimen Comment: No. of containers..01 ThinPrep Vial Result Comment: The Pap smear is a screening test designed to aid in the detection of premalignant and malignant conditions of the uterine cervix. It is not a diagnostic procedure and should not be used as the sole means of detecting cervical cancer. Both false-positive and false-negative reports do occur. Performed By: #### L 7400.0353, L7000.1800 #### [facility] [address] [place], [address] PERFORM Comment Normal . [facility] Comment on above: Order Comment: Speci men Comment: [id number] Specimen Comment: Source.............Cervix Specimen Comment: Other.............. Specimen Comment: No. of containers..01 ThinPrep Vial Result Comment: Candy Cho, Primer Supervisor (ASCP) Performed By: #### L 7400.0353, L7000.1800 #### [facility] [address] [place], [address] Chlamydia/GC CLIFFORD aptimaon CHLAMY,NUC ACID Negative Normal Negative [facility] Comment on above: Performed By: #### L 7400.0353, L7000.1800 #### [facility] [address] [place], [address] GC BY NUC ACID Negative Normal Negative [facility] Comment on above: Result Comment: Perf ormed at: =G - [facility] [address] [id number] Mouthpiece Maker: Michelle Casper MD, Phone: [phone] Performed By: #### L 7400.0353, L7000.1800 #### [facility] [address] [place], [address] C. trachomatis rRNA CLIFFORD+prob e Ql (Unsp spec)Ordered By: Nakia Briones on 03-21-2025 Chlamydia DNA (CLIFFORD) Negative Negative [facility] Cervical or vagninal specime n microscopic examination by cytology stain (reported asOrdered By: Nakia Briones on 03-21-2025 Cytology report Cyto stain Doc (Cvx/Vag) Comment . [facility] Comment on above: The Pap smear is a s creening test designed to aid in thedetection of premalignant and malignant conditions of theuterine cervix. It is not a diagnostic procedure andshould not be used as the sole means of detecting cervicalcancer. Both false-positive and false-negative reports dooccur. Chlamydia trachomatis rRNA d etection by probe and target amplification methodOrdered By: Nakia Briones on 03-21-2025 C. trachomatis rRNA CLIFFORD+probe Ql (Unsp spec) Negative Negative [facility] Laboratory - CytologyOrdered By: Nakia Briones on 03-21-2025 Primer Supervisor Cyto stain Nom (Cvx/Vag) [ID] Comment . [facility] Comment on above: Melissa marshall, Primer Supervisor (ASCP) Laboratory - Miscellaneous t estsOrdered By: Nakia Briones on 03-21-2025 Service comment (Unsp spec) [Interp] . . [facility] Neisseria gonorrhoeae nuclei c acid detection by amplified probe techniqueOrdered By: Nakia Briones on 03-21-2025 N. gonorrhoeae DNA CLIFFORD+probe Ql (Unsp spec) Negative Negative [facility] Comment on above: Performed at: =[address] [id number] Director: Michelle Casper MD, Phone: [phone] No Panel InformationOrdered By: Nakia Briones on 03-21-2025 Pap Smear Specimen Adequacy Comment . [facility] Comment on above: Satisfactory for rose mary luation. No endocervical component is identified.An endocervical component is not commonly seen in the patient. Supervisor Farm Equipment Maintenance Office Visit Reporton 03-21-2025 Supervisor Farm Equipment Maintenance Office Visit Report [facility] [address], [address] [place] [address] OFFICE VISIT Date of Service: 03/21/25 MR#: [id number] Acct: [id number] Name: ROBIN ORTEGA Rep #: [id number] : 1995 Provider: Dr. Nakia Carranza DO Age/Sex: 30/F Location: [facility] Status: Signed Intake Vital Signs 07/01/24 14:15 03/21/25 13:45 03/21/25 14:23 Height 5 ft 5 ft 5 ft Weight: 126 lb 4 oz BMI 24.6 BP 118/62 Intake Visit Reasons: New ob, lmp 01/22 Student Services Dean Required: No Is patient in pain?: No Allergies No Known Allergies Allergy (Verified 03/21/25 14:22) Medications ???Medication ???Instructions ???Recorded ???Confirmed ???Type docosahexaenoic acid 200 mg mg PO 03/21/25 03/21/25 History capsule ( DHA) Last Menstrual Period: 01/22/25 Zika: Zika virus screening: Negative : No PFSH PFSH Medical History History of rupture of uterus Anxiety and depression Rubella non-immune status, antepartum Superficial varicosities Headache Surgical History History of delivery Social History adopted: No household members: spouse and children number of children: 3 current occupation: [employer] current occupational exposures/hazards: No pets and animals: Yes pets and animals: cat(s), dog(s) and farm animals history of recent travel: No sexually active: Yes Smoking Status: Never smoker alcohol intake: never substance use type: does not use well-balanced diet: daily or most days caffeine: No eating out: rarely or never during the past year weight has: remained stable what type of physical activity do you participate in: walking arcadio/mormonism: [facility] seatbelt use: never do you feel safe at home: Yes additional social history: : Mazin Santillan History 4 Elective abortions 0 Hx Para 3 Spontaneous abortions 0 Hx # Term Pregnancies 2 Ectopic pregnancies 0 Hx # Pregnancies 1 Multiple births 0 # of living children 3 Past Pregnancies Del. Date Name GA/Weeks Outcome Route Bth Weight Infant Gen Labor Lgth Anesthesia Del Locatn Provider FOB 03/12/19 Kd 40 live - full term 9lbs 9oz Male spinal [facility] Adrian 06/02/20 Ada 38 live - full term 6lbs 12oz Female spinal [facility] Adrian 08/24/22 Gregory 35 live - 6lbs 2oz Male spinal [facility] kristine Anali Campbell Delivery Date: 03/12/19 Last Updated by: Oly Adams MD preeclampsia Delivery Date: 06/02/20 Last Updated by: Naomie Swann RN uterine rupture HPI New ob, lmp 01/22 Details: ROBIN ORTEGA is a 30 year old who presents for New OB visit. OB Visit MICHAEL Calculator Estimated Delivery Date Method Current WG Current Estimate 10/29/25 LMP (Certain) 8w 2d Other Estimates 10/27/25 Ultrasound #1 8w 4d Comments: HIV: Urine Culture: Sequential Screen: NIPT Screen: Estimated Due Date: 10/29/25 Expected Delivery Route/Plan for repeat cs Specific Issue/Plans Covid status: [] Flu vaccine: [] Tdap vaccine: [] Rhogam: [] LARC form signed: [] Problem list reviewed and updated with the most current plan of care details and appropriate orders placed. Relevant counseling for the gestational age provided. Continue routine care and follow up unless otherwise noted in visit notes/problem list details Initial Weight: Not Recorded Date -???-???-???-???-??? -???-???-???-???-??? -???-???- EGA Weight BP Urine Prot -???-???-???-???-??? -???-???-???-???-??? -???-???- Glucose FHR FuHt Pres Dilation -???-???-???-???-??? -???-???-???-???-??? -???-???- Effaced St Visit Note 03/21/25 -???-???-???-???-??? -???-???-???-???-??? -???-???- 8w 2d 126 lb 4 oz 118/62 -???-???-???-???-??? -???-???-???-???-??? -???-???- 178 -???-???-???-???-??? -???-???-???-???-??? -???-???- JV-CRL consi stent with LMP. declines NIPT. Menstrual History Last Menstrual Period: 01/22/25 Reported LMP: definite Normal amount/duration: Yes Frequency in days: 25 On hormonal BC at conception: No hCG+: 02/12/25 Antepartum Record Genetic Screening: Congenital Heart Defect: Other, Neural Tube Defect: Other, Hemoglobinopathy Or Carrier: Other, Cystic Fibrosis: Other, Chromosome Abnormality: Partner (Brother with down syndrome ), Clifton-Sachs: Other, Hemophilia: Other, Intellectual Disability/Autism: Other, Recurrent Loss/Stillbirth: Patient (Pt's mom with stillbirth), Other Structural Defect: Other, Other Genetic Disease: Other and Maternal Metabolic Disorder: Other Infection History: Live with someone with TB or Exposed to (more content not included)... Normal [facility] Office Visit Reporton 2024 Office Visit Report [facility] [address] [place] [address] OFFICE VISIT Date of Service: 03/21/25 MR#: [id number] Acct: [id number] Patient: ROBIN ORTEGA Rep #: [id number] : 1995 Provider: Dr. Nakia Carranza DO Age/Sex: 30/F Location: [facility] Status: Signed Intake Vital Signs 07/01/24 14:15 03/21/25 13:45 03/21/25 14:23 Height 5 ft 5 ft 5 ft Weight: 126 lb 4 oz BMI 24.6 BP 118/62 Intake Visit Reasons: New ob, lmp 01/22 Accompanied by: Allergies No Known Allergies Allergy (Verified 03/21/25 14:22) Medications ???Medication ???Instructions ???Recorded ???Confirmed ???Type docosahexaenoic acid 200 mg mg PO 03/21/25 03/21/25 History capsule ( DHA) Is last menstrual period known: Yes Post menopausal: No Patient : Yes Have you fallen in the past year?: No Nurse's Note: Pt here for PNOB. Vitals WNL. PNOB questions completed. Problem list, allergies, and medications updated. Assessment and Plan Assessment and Plan Orders: Orders CBC W/Diff, Automated Today O09.90 - Supervision of high risk , unspecified, unspecified trimester Type Screen Today O09.90 - Supervision of high risk , unspecified, unspecified trimester Rubella IgG Today O09.90 - Supervision of high risk , unspecified, unspecified trimester Hepatitis C Antibody Today O09.90 - Supervision of high risk , unspecified, unspecified trimester Hepatitis B Surface Antigen Today O09.90 - Supervision of high risk , unspecified, unspecified trimester Culture, Urine Today O09.90 - Supervision of high risk , unspecified, unspecified trimester Syphilis Antibodies Today O09.90 - Supervision of high risk , unspecified, unspecified trimester Chlamydia/GC CLIFFORD aptima Today O09.90 - Supervision of high risk , unspecified, unspecified trimester HIV Today O09.90 - Supervision of high risk , unspecified, unspecified trimester PAP I-G w/rfx hrHPV-Aptima Today Z12.4 - Encounter for screening for malignant neoplasm of cervix Comprehensive Metabolic Profil Today O09.90 - Supervision of high risk , unspecified, unspecified trimester, Z87.59 - Personal history of other complications of , childbirth and the puerperium Protein+Creatinine Ratio,Urine Today O09.90 - Supervision of high risk , unspecified, unspecified trimester, Z87.59 - Personal history of other complications of , childbirth and the puerperium Clinical Quality Measures Falls Risk Screening/Assistive Devices Have you fallen in the past year?: No 03/21/25 1603 Date Nakia Bagley Signature: Date (if applicable) CC: Normal [facility] Supervisor [employer] Office Visit Reporton 07-01-2024 Supervisor Farm Equipment Maintenance Office Visit Report [facility] [address] [place], [place] [address]vicky. [address] [place] [address] OFFICE VISIT Date of Service: 07/01/24 MR#: [id number] Acct: [id number] Name: ROBIN ORTEGA Rep #: [id number] : 1995 Provider: TERRY healy Age/Sex: 29/F Location: [facility] Status: Signed Intake Vital Signs 10/05/22 13:25 07/01/24 14:11 07/01/24 14:15 Height 5 ft 5 ft 5 ft Weight: 132 lb 4 oz BMI 25.8 BP 100/69 Intake Visit Reasons: IUD REMOVAL Chief Complaint: IUD removal Student Services Dean Required: No Is patient in pain?: No Allergies No Known Allergies Allergy (Verified 07/01/24 14:10) Medications ???Medication ???Instructions ???Recorded ???Confirmed ???Type Saccharomyces boulardii 250 mg 5,000 mmu cells PO DAILY 07/15/22 07/01/24 History capsule (Daily Probiotic (S. boulardii)) Is last menstrual period known: No Post menopausal: No Patient : No : No [facility] Medical History (Updated 07/01/24 @ 14:32 by Jacinta Melendrez PROPERTY MANAGEMENT INTERN, PROPERTY MANAGEMENT INTERN-C) Club foot, , affecting care of mother, antepartum Rubella non-immune status, antepartum Superficial varicosities depression Depression Anxiety Headache Eclampsia Anemia associated with acute blood loss Surgical History (Updated 07/01/24 @ 14:32 by Jacinta Melendrez PROPERTY MANAGEMENT INTERN, PROPERTY MANAGEMENT INTERN-C) History of delivery Social History Smoking Status: Never smoker alcohol intake: never substance use type: does not use caffeine: No what type of physical activity do you participate in: walking seatbelt use: always do you feel safe at home: Yes additional social history: [place]- [facility] IUD REMOVAL Details: ROBIN ORTEGA is a 29 year old who presents for IUD removal. Wants . History 3 Elective abortions 0 Hx Para 3 Spontaneous abortions 0 Hx # Term Pregnancies 2 Ectopic pregnancies 0 Hx # Pregnancies 1 Multiple births 0 # of living children 3 Past Pregnancies Del. Date Name GA/Weeks Outcome Route Bth Weight Infant Gen Labor Lgth Anesthesia Del Locatn Provider FOB Unknown 2019 Kd 40 live - full term 9lbs 9oz Male spinal [facility] SM Unknown 2019 Ada 38 live - full term 6lbs 12oz Female spinal [facility] SM uterine rupture 08/24/22 Gregory 35 live - 6lbs 2oz Male spinal [facility] Va nde VelMoody Delivery Date: Last Updated by: Oly Adams MD preeclampsia ROS Const Constitutional: Reports system reviewed and no additional complaints, except as documented Eyes Eyes: Reports system reviewed and no additional complaints, except as documented GI GI: Denies abdominal pain or change in bowel habits : Reports as per HPI Exam Const General: cooperative and no acute distress Orientation: oriented x3 General: bladder normal to palpation External Female Exam: normal external appearance and normal appearance of the urethra Urethra: normal appearance of the urethra Speculum Exam - Vagina: normal appearance of the vagina, normal vaginal discharge, no lesions and nontender Speculum Exam - Cervix: normal appearance of the cervix Bimanual Exam- Vagina Uterus: normal bimanual exam, uterine size normal, bladder normal to palpation, uterine shape normal, uterine mobility normal and non-tender Bimanual Exam- Adnexa, other: normal adnexae, no masses and non-tender Office Procedures IUD Removal IUD Removal Details: Sign out documentation: Completed Procedure: Speculum placed in vagina, IUD string visualized and grasped with ring forceps. IUD easily removed in its entirety and patient tolerated well. Coding Level of Care Code Attention Sera Diagnoses Encounter for IUD removal Z30.432 Assessment and Plan Assessment and Plan (1) Encounter for IUD removal: Orders: Orders IUD Removal Today Z30.432 - Encounter for removal of intrauterine contraceptive device Plan IUD removed. Condoms if wishing to avoid . Start vitamin. 07/01/24 1432 Date Jacinta Melendrez NP PROPERTY MANAGEMENT INTERN-C Cosigner Signature: Date (if applicable) CC: Normal [facility] Basophil percentageon 2021 WBC (Bld) [#/Vol] 9.9 10*3/uL 4.4-11.0 [place] Work Phone: Blood erythrocytes count (nu mber/volume)on 08-25-2022 RBC (Bld) [#/Vol] 3.63 10*6/uL 4.2-5.4 [facility] Work Phone: Blood hemoglobin measurement (mass/volume)on 08-25-2022 Hemoglobin (Bld) [Mass/Vol] 11.3 g/dL 12.0-15.0 [facility] Work Phone: Blood platelet mean volumeon 08-25-2022 Platelet mean volume (Bld) [Entitic vol] 10.4 fL 6.2-12.0 [facility] Work Phone: Determination of erythrocyte mean corpuscular volume (MCV)on 08-25-2022 MCV (RBC) [Entitic vol] 94.8 fL 81-99 [facility] Work Phone: Hematocrit Auto (Bld) [Volum e fraction]on 08-25-2022 Hematocrit (Bld) [Volume fraction] 34.4 % 37-47 [facility] Work Phone: Laboratory - Hematology and Cell countson 08-25-2022 Erythrocyte distribution width (RBC) [Entitic vol] 45.8 fL 35.1-43.9 [facility] Work Phone: [phone] Erythrocyte distribution width (RBC) [Ratio] 13.2 % 11.6-14.6 [facility] Work Phone: MCH (RBC) [Entitic mass] 31.1 pg 27.0-32.0 [facility] Work Phone: MCHC Auto (RBC) [Mass/Vol]on 08-25-2022 MCHC (RBC) [Mass/Vol] 32.8 g/dL 32-36 [facility]: [phone] Platelets bldon 08-25-2022 Platelets (Bld) [#/Vol] 125 10*3/uL 150-450 [facility] Work Phone: Absolute lymphocyte counton 08-24-2022 Lymphocytes Auto (Unsp spec) [#/Vol] 1.62 10*3/uL 0.83-4.51 [facility] Work Phone: Basophil percentageon 2021 C. trachomatis DNA CLIFFORD+probe Ql (Unsp spec) Negative Negative [facility] Work Phone: Basophils/100 WBC (Bld) 0.6 % 0-1 [facility] Work Phone: Eosinophils/100 WBC (Bld) 0.8 % 0-5 [facility] Work Phone: [phone] Neutrophils (Bld) [#/Vol] 5.9 10*3/uL 2.0-7.7 [facility] Work Phone: Neutrophils/100 WBC (Bld) 67.6 % 47-70 [facility] Work Phone: [phone] Blood lymphocytes/100 leukoc yteson 08-24-2022 Lymphocytes/100 WBC (Bld) 18.6 % 19-41 [facility] Work Phone: [phone] Blood monocytes/100 leukocyt eson 08-24-2022 Monocytes/100 WBC (Bld) 9.9 % 0-10 [facility] Work Phone: HIV 1 and HIV-2 antibody ass ay with HIV-1 p24 antigen detectionon 08-24-2022 HIV 1+2 Ab+HIV1 p24 Ag IA Ql Non-Reactive Nonreactive [facility] Work Phone: Laboratory - Hematology and Cell countson 08-24-2022 Immature granulocytes/100 WBC (Bld) 2.500 % 0.0-0.9 [facility] Work Phone: Comment on above: IG% - Immature Granu locytes (promyelocytes, myelocytes and metamyelocytes) > 1% indicates that a LEFT SHIFT is Present. Nucleated RBC/100 WBC (Bld) [Ratio] 0 % 0-5 [facility] Work Phone: [phone] Neisseria gonorrhoeae detect ion by PCRon 08-24-2022 N. gonorrhoeae DNA CLIFFORD+probe Ql (Cervical mucus) Negative Negative [facility] Work Phone: [phone] No Panel Informationon 08-24 Hepatitis B Surface Antigen Non-Reactive Nonreactive [facility] Work Phone: Hepatitis C Antibody Non-Reactive Nonreactive [facility] Work Phone: [phone] Comment on above: Non Reactive: < 0.8 Equivocal: >/= 0.8 to < 1.0 Reactive: >/= 1.0The CDC recommends that a reactive/equivocal HCV antibody result be followed up by the HCV Nucleic Acid Amplificationtest (975120) Serum Treponema species anti body detectionon 08-24-2022 Treponema sp Ab Ql (S) Non-Reactive [facility] Work Phone: Basophil percentageon 2021 WBC (Bld) [#/Vol] 7.3 10*3/uL 4.4-11.0 [place] Work Phone: Blood erythrocytes count (nu mber/volume)on 08-17-2022 RBC (Bld) [#/Vol] 3.76 10*6/uL 4.2-5.4 [facility] Work Phone: [phone] Blood hemoglobin measurement (mass/volume)on 08-17-2022 Hemoglobin (Bld) [Mass/Vol] 11.8 g/dL 12.0-15.0 [facility] Work Phone: [phone] Blood platelet mean volumeon 08-17-2022 Platelet mean volume (Bld) [Entitic vol] 10.5 fL 6.2-12.0 [facility] Work Phone: [phone] Determination of erythrocyte mean corpuscular volume (MCV)on 08-17-2022 MCV (RBC) [Entitic vol] 93.6 fL 81-99 [facility] Work Phone: [phone] Hematocrit Auto (Bld) [Volum e fraction]on 08-17-2022 Hematocrit (Bld) [Volume fraction] 35.2 % 37-47 [facility] Work Phone: [phone] Laboratory - Chemistry and C hemistry - challengeon 08-17-2022 Glucose Ql (U) Negative [facility] Work Phone: [phone] Laboratory - Hematology and Cell countson 08-17-2022 Erythrocyte distribution width (RBC) [Entitic vol] 44.7 fL 35.1-43.9 [facility] Work Phone: [phone] Erythrocyte distribution width (RBC) [Ratio] 13.0 % 11.6-14.6 [facility] Work Phone: MCH (RBC) [Entitic mass] 31.4 pg 27.0-32.0 [facility] Work Phone: Laboratory - Urinalysison Protein Ql (U) Negative [facility] Work Phone: MCHC Auto (RBC) [Mass/Vol]on 08-17-2022 MCHC (RBC) [Mass/Vol] 33.5 g/dL 32-36 [facility] Work Phone: Platelets bldon 08-17-2022 Platelets (Bld) [#/Vol] 153 10*3/uL 150-450 [facility] Work Phone: Laboratory - Chemistry and C hemistry - challengeon 08-12-2022 Glucose Ql (U) Negative [facility] Work Phone: Laboratory - Urinalysison Protein Ql (U) Negative [facility] Work Phone: Laboratory - Chemistry and C hemistry - challengeon 07-28-2022 Glucose Ql (U) Negative [facility] Work Phone: Laboratory - Urinalysison Protein Ql (U) Negative [facility] Work Phone: Absolute lymphocyte counton 06-29-2022 Lymphocytes Auto (Unsp spec) [#/Vol] 1.26 10*3/uL 0.83-4.51 [facility] Work Phone: Basophil percentageon 2021 Basophils/100 WBC (Bld) 0.3 % 0-1 [facility] Work Phone: Eosinophils/100 WBC (Bld) 0.8 % 0-5 [facility] Work Phone: Neutrophils (Bld) [#/Vol] 5.5 10*3/uL 2.0-7.7 [facility] Work Phone: Neutrophils/100 WBC (Bld) 73.9 % 47-70 [facility] Work Phone: WBC (Bld) [#/Vol] 7.4 10*3/uL 4.4-11.0 [place] Work Phone: Blood erythrocytes count (nu mber/volume)on 06-29-2022 RBC (Bld) [#/Vol] 3.78 10*6/uL 4.2-5.4 [facility]: Blood hemoglobin measurement (mass/volume)on 06-29-2022 Hemoglobin (Bld) [Mass/Vol] 11.8 g/dL 12.0-15.0 [facility] Work Phone: Blood lymphocytes/100 leukoc yteson 06-29-2022 Lymphocytes/100 WBC (Bld) 17.1 % 19-41 [facility] Work Phone: Blood monocytes/100 leukocyt eson 06-29-2022 Monocytes/100 WBC (Bld) 6.4 % 0-10 [facility] Work Phone: Blood platelet mean volumeon 06-29-2022 Platelet mean volume (Bld) [Entitic vol] 10.9 fL 6.2-12.0 [facility] Work Phone: Determination of erythrocyte mean corpuscular volume (MCV)on 06-29-2022 MCV (RBC) [Entitic vol] 91.5 fL 81-99 [facility] Work Phone: Gestational diabetes screen 1-hour screen with 50g oral glucose loadon 06-29-2022 Glucose 1 Hr post 50 g glucose PO [Mass/Vol] 128 mg/dL 70-140 [facility] Work Phone: Hematocrit Auto (Bld) [Volum e fraction]on 06-29-2022 Hematocrit (Bld) [Volume fraction] 34.6 % 37-47 [facility] Work Phone: Laboratory - Chemistry and C hemistry - challengeon 06-29-2022 Glucose Ql (U) Negative [facility] Work Phone: Laboratory - Hematology and Cell countson 06-29-2022 Erythrocyte distribution width (RBC) [Entitic vol] 43.1 fL 35.1-43.9 [facility] Work Phone: Erythrocyte distribution width (RBC) [Ratio] 13.1 % 11.6-14.6 [facility] Work Phone: Immature granulocytes/100 WBC (Bld) 1.500 % 0.0-0.9 [facility] Work Phone: Comment on above: IG% - Immature Granu locytes (promyelocytes, myelocytes and metamyelocytes) > 1% indicates that a LEFT SHIFT is Present. MCH (RBC) [Entitic mass] 31.2 pg 27.0-32.0 [facility] Work Phone: Nucleated RBC/100 WBC (Bld) [Ratio] 0 % 0-5 [facility] Work Phone: Laboratory - Urinalysison Protein Ql (U) Negative [facility] Work Phone: MCHC Auto (RBC) [Mass/Vol]on 06-29-2022 MCHC (RBC) [Mass/Vol] 34.1 g/dL 32-36 [facility] Work Phone: Platelets bldon 06-29-2022 Platelets (Bld) [#/Vol] 148 10*3/uL 150-450 [facility] Work Phone: Laboratory - Chemistry and C hemistry - challengeon 06-02-2022 Glucose Ql (U) Negative [facility] Work Phone: Laboratory - Urinalysison Protein Ql (U) Negative [facility] Work Phone: Laboratory - Chemistry and C hemistry - challengeon 05-02-2022 Glucose Ql (U) Negative [facility] Work Phone: Laboratory - Urinalysison Protein Ql (U) Negative [facility] Work Phone: Laboratory - Chemistry and C hemistry - challengeon 04-25-2022 Glucose Ql (U) Negative [facility] Work Phone: Laboratory - Urinalysison Protein Ql (U) Negative [facility] Work Phone: Absolute lymphocyte counton 02-07-2022 Lymphocytes Auto (Unsp spec) [#/Vol] 0.94 10*3/uL 0.83-4.51 [facility] Work Phone: Basophil percentageon 2021 Basophils/100 WBC (Bld) 0.3 % 0-1 [facility] Work Phone: Bilirubin [Mass/Vol] 0.20 mg/dL 0.20-1.00 [facility] Work Phone: Comment on above: For patients on eltr ombopag therapy, use of Dimension Lind TBIL is not recommended. Chloride [Moles/Vol] 104 mmol/L 98-107 [facility] Work Phone: Eosinophils/100 WBC (Bld) 0.3 % 0-5 [facility] Work Phone: Glucose [Mass/Vol] 88 mg/dL 74-106 [place] Work Phone: Neutrophils (Bld) [#/Vol] 2.3 10*3/uL 2.0-7.7 [facility] Work Phone: Neutrophils/100 WBC (Bld) 63.0 % 47-70 [facility] Work Phone: Potassium [Moles/Vol] 3.8 mmol/L 3.5-5.1 [facility] Work Phone: Protein [Mass/Vol] 7.5 g/dL 6.4-8.2 [place] Work Phone: Sodium [Moles/Vol] 135 mmol/L 136-145 [place] Work Phone: WBC (Bld) [#/Vol] 3.7 10*3/uL 4.4-11.0 [place] Work Phone: Blood erythrocytes count (nu mber/volume)on 02-07-2022 RBC (Bld) [#/Vol] 4.26 10*6/uL 4.2-5.4 [facility] Work Phone: Blood hemoglobin measurement (mass/volume)on 02-07-2022 Hemoglobin (Bld) [Mass/Vol] 13.4 g/dL 12.0-15.0 [facility] Work Phone: Blood lymphocytes/100 leukoc yteson 02-07-2022 Lymphocytes/100 WBC (Bld) 25.5 % 19-41 [facility] Work Phone: [phone] Blood monocytes/100 leukocyt eson 02-07-2022 Monocytes/100 WBC (Bld) 10.9 % 0-10 [facility] Work Phone: [phone] Blood platelet mean volumeon 02-07-2022 Platelet mean volume (Bld) [Entitic vol] 11.1 fL 6.2-12.0 [facility] Work Phone: Cervical or vagninal specime n microscopic examination by cytology stain (reported ason 02-07-2022 Cytology report Cyto stain Doc (Cvx/Vag) Comment [facility] Work Phone: Comment on above: The Pap smear is a s creening test designed to aid in thedetection of premalignant and malignant conditions of theuterine cervix. It is not a diagnostic procedure andshould not be used as the sole means of detecting cervicalcancer. Both false-positive and false-negative reports dooccur. Culture, urineon 02-07-2022 Bacteria identified Cx Nom (U) Culture exhibits no growth. [facility] Work Phone: Determination of erythrocyte mean corpuscular volume (MCV)on 02-07-2022 MCV (RBC) [Entitic vol] 88.5 fL 81-99 [facility] Work Phone: [phone] Hematocrit Auto (Bld) [Volum e fraction]on 02-07-2022 Hematocrit (Bld) [Volume fraction] 37.7 % 37-47 [facility] Work Phone: [phone] Laboratory - Chemistry and C hemistry - challengeon 02-07-2022 ALP [Catalytic activity/Vol] 48 U/L 45-117 [facility] Work Phone: [phone] ALT [Catalytic activity/Vol] 31 U/L 13-56 [facility] Work Phone: [phone] CO2 [Moles/Vol] 25.0 mmol/L 21.0-32.0 [facility] Work Phone: [phone] Globulin (S) [Mass/Vol] 3.7 g/dL 2.2-4.2 [facility] Work Phone: [phone] Urea nitrogen/Creatinine [Mass ratio] 17.5 mg/mg 10-20 [facility] Work Phone: [phone] Laboratory - Cytologyon 01-25 Primer Supervisor Cyto stain Nom (Cvx/Vag) [ID] Comment [facility] Work Phone: [phone] Comment on above: Love Salguero unm hospitalsigrid Concrete Crusher Loader Operator (ASCP) Laboratory - Hematology and Cell countson 02-07-2022 Erythrocyte distribution width (RBC) [Entitic vol] 39.7 fL 35.1-43.9 [facility] Work Phone: [phone] Erythrocyte distribution width (RBC) [Ratio] 12.3 % 11.6-14.6 [facility] Work Phone: [phone] Immature granulocytes/100 WBC (Bld) 0.000 % 0.0-0.9 [facility] Work Phone: [phone] Comment on above: IG% - Immature Granu locytes (promyelocytes, myelocytes and metamyelocytes) > 1% indicates that a LEFT SHIFT is Present. MCH (RBC) [Entitic mass] 31.5 pg 27.0-32.0 [facility] Work Phone: [phone] Nucleated RBC/100 WBC (Bld) [Ratio] 0 % 0-5 [facility] Work Phone: [phone] Laboratory - Miscellaneous t estson 02-07-2022 Service comment (Unsp spec) [Interp] Comment [facility] Work Phone: Comment on above: This liquid based Th inPrep(R) pap test was screened withthe use of an image guided system. Service comment (Unsp spec) [Interp] . [facility] Work Phone: [phone] MCHC Auto (RBC) [Mass/Vol]on 02-07-2022 MCHC (RBC) [Mass/Vol] 35.5 g/dL 32-36 [facility] Work Phone: No Panel Informationon 02-07 Human Papillomavirus Screen Comment [facility] Work Phone: Comment on above: The HPV DNA reflex c celina were not met with this specimenresult therefore, no HPV testing was performed.Performed at: [address] [id number] Director: Michelle Casper MD, Phone: [phone] Pathology report final diagnosis Narrative Comment [facility] Work Phone: [phone] Comment on above: NEGATIVE FOR INTRAEP ITHELIAL LESION OR MALIGNANCY.FUNGAL ORGANISMS MORPHOLOGICALLY CONSISTENT WITH ANILA SPECIES AREPRESENT. Estimated GFR (MDRD) Amer 186 mL/min >60 [facility] Work Phone: Comment on above: GFR Calc Estimated GFR (MDRD) Non-Af Amer 154 mL/min >60 [facility] Work Phone: [phone] Comment on above: Non- GFR Calc Rubella IgG Antibody Non-Reactive Nonreactive [facility] Work Phone: [phone] Comment on above: Antibody Results Int erpretation of Immune Status Non Reactive Presumed Non-Immune Equivocal Equivocal Reactive Presumed Immune Platelets bldon 02-07-2022 Platelets (Bld) [#/Vol] 145 10*3/uL 150-450 [facility] Work Phone: [phone] Serum or plasma albumin zafar urement (mass/volume)on 02-07-2022 Albumin [Mass/Vol] 3.8 g/dL 3.2-5.0 [place] Work Phone: Serum or plasma albumin/glob ulin mass ratioon 02-07-2022 Albumin/Globulin [Mass ratio] 1.0 {ratio} 0.9-2.4 [facility] [facility] Work Phone: [phone] Serum or plasma calcium zafar urement (mass/volume)on 02-07-2022 Calcium [Mass/Vol] 8.6 mg/dL 8.5-10.1 [place] Work Phone: [phone] Serum or plasma creatinine m easurement (mass/volume)on 02-07-2022 Creatinine [Mass/Vol] 0.51 mg/dL 0.55-1.02 [facility] Comment on above: The validity of the calculated GFR & GFRAA in patients over 70 years has not been determined. Clinical correlation is essential. Serum or plasma urea nitroge n measurement (mass/volume)on 02-07-2022 Urea nitrogen [Mass/Vol] 9 mg/dL 7-18 [facility] Work Phone: [phone] Thin prep Papanicolaou smear with manual screeningon 02-07-2022 Thin prep Papanicolaou smear with manual screening 20 U/L 15-37 [facility] Work Phone: [phone] Thin prep Papanicolaou smear with manual screening 6 5-15 [facility] Work Phone: [phone] Urine creatinine measurement (mass/volume)on 02-07-2022 Creatinine (U) [Mass/Vol] 57.60 mg/dL NO RANGE EST. [facility] Work Phone: [phone] Urine protein measurement (m ass/volume)on 02-07-2022 Protein (U) [Mass/Vol] 8.0 mg/dL 0.0-11.8 [facility] Work Phone: [phone] Urine protein/creatinine mas s ratioon 02-07-2022 Protein/Creatinine (U) [Mass ratio] 139 mg/g CRE 0-200 [facility] Work Phone: No Panel Information Group B Streptococcus Culture Group B Beta Streptococcus is not isolated. [facility] Work Phone: Vital Signs Date Time Vital Sign Value Performing Clinician Kiel espitia 05-12-2025 09:41-0400 Body height 152.[address] Nakia Keene DO Work Phone: [facility] 05-12-2025 09:41-0400 Body mass index (BMI) [Ratio] 25.8 kg/m2 Dr. Nakia Keene DO Work Phone: [facility] 05-12-2025 09:41-0400 Body weight 60.[address] Nakia Keene DO Work Phone: [facility] 05-12-2025 09:41-0400 Diastolic blood pressure 67 mm[Hg] Dr. Nakia Keene DO Work Phone: [facility] 05-12-2025 09:41-0400 Systolic blood pressure 106 mm[Hg] Dr. Nakia Keene DO Work Phone: [facility] 04-18-2025 11:36-0400 Body height 152.[address] Nakia Keene DO Work Phone: [facility] 04-18-2025 11:35-0400 Body mass index (BMI) [Ratio] 24.6 kg/m2 Dr. Nakia Keene DO Work Phone: [facility] 04-18-2025 11:35-0400 Body weight 57.[address] Nakia Keene DO Work Phone: [facility] 04-18-2025 11:35-0400 Diastolic blood pressure 64 mm[Hg] Dr. Nakia Keene DO Work Phone: [facility] 04-18-2025 11:35-0400 Systolic blood pressure 101 mm[Hg] Dr. Nakia Keene DO Work Phone: [facility] 03-21-2025 14:23-0400 Body height 152.[address] Nakia Keene DO Work Phone: [facility] 03-21-2025 13:45-0400 Body mass index (BMI) [Ratio] 24.6 kg/m2 Dr. Nakia Keene DO Work Phone: [facility] 03-21-2025 13:45-0400 Body weight 57.[address] Nakia Keene DO Work Phone: [facility] 03-21-2025 13:45-0400 Diastolic blood pressure 62 mm[Hg] Dr. Nakia Keene DO Work Phone: [facility] 03-21-2025 13:45-0400 Systolic blood pressure 118 mm[Hg] Dr. Nakia Keene DO Work Phone: [facility] 08-26-2022 08:00-0400 Body temperature 98.2 [degF] No Primary Care Physician [facility] Work Phone: 08-26-2022 08:00-0400 Diastolic blood pressure 63 mm[Hg] No Primary Care Physician [facility] Work Phone: 08-26-2022 08:00-0400 Heart rate 81 /min No Primary Care Physician [facility] Work Phone: 08-26-2022 08:00-0400 Respiratory rate 18 /min No Primary Care Physician [facility] Work Phone: 08-26-2022 08:00-0400 SaO2% (BldA) [Mass fraction] 98 % No Primary Care Physician [facility] Work Phone: 08-26-2022 08:00-0400 Systolic blood pressure 111 mm[Hg] No Primary Care Physician [facility] Work Phone: 08-24-2022 05:34-0400 Body height 152.4 cm No Primary Care Physician [facility] Work Phone: 08-24-2022 05:34-0400 Body mass index (BMI) [Ratio] 30 kg/m2 No Primary Care Physician [facility] Work Phone: 08-24-2022 05:34-0400 Body weight 69.85 kg No Primary Care Physician [facility] Work Phone: 08-18-2022 11:46-0400 Body temperature 97.7 [degF] No Primary Care Physician [facility] Work Phone: 08-18-2022 11:46-0400 Diastolic blood pressure 62 mm[Hg] No Primary Care Physician [facility] Work Phone: 08-18-2022 11:46-0400 Heart rate 86 /min No Primary Care Physician [facility] Work Phone: 08-18-2022 11:46-0400 Systolic blood pressure 109 mm[Hg] No Primary Care Physician [facility] Work Phone: 08-18-2022 11:42-0400 Body height 152.4 cm No Primary Care Physician [facility] Work Phone: 08-18-2022 11:42-0400 Body mass index (BMI) [Ratio] 30.2 kg/m2 No Primary Care Physician [facility] Work Phone: 08-18-2022 11:42-0400 Body weight 70.1 kg No Primary Care Physician [facility] Work Phone: 08-17-2022 10:55-0400 Body temperature 98.5 [degF] No Primary Care Physician [facility] Work Phone: 08-17-2022 10:55-0400 Diastolic blood pressure 56 mm[Hg] No Primary Care Physician [facility] Work Phone: 08-17-2022 10:55-0400 Heart rate 90 /min No Primary Care Physician [facility] Work Phone: 08-17-2022 10:55-0400 Systolic blood pressure 104 mm[Hg] No Primary Care Physician [facility] Work Phone: 08-17-2022 10:46-0400 Body height 154.94 cm No Primary Care Physician [facility] Work Phone: 08-17-2022 10:46-0400 Body mass index (BMI) [Ratio] 29.1 kg/m2 No Primary Care Physician [facility] Work Phone: 08-17-2022 10:46-0400 Body weight 70 kg No Primary Care Physician [facility] Work Phone: 08-17-2022 09:51-0400 Body mass index (BMI) [Ratio] 27.3 kg/m2 No Primary Care Physician [facility] Work Phone: 08-17-2022 09:51-0400 Body weight 69.85 kg No Primary Care Physician [facility] Work Phone: 08-17-2022 09:51-0400 Diastolic blood pressure 63 mm[Hg] No Primary Care Physician [facility] Work Phone: 08-17-2022 09:51-0400 Systolic blood pressure 107 mm[Hg] No Primary Care Physician [facility] Work Phone: 08-12-2022 14:35-0400 Body mass index (BMI) [Ratio] 27.3 kg/m2 No Primary Care Physician [facility] Work Phone: 08-12-2022 14:35-0400 Body weight 69.85 kg No Primary Care Physician [facility] Work Phone: 08-12-2022 14:35-0400 Diastolic blood pressure 65 mm[Hg] No Primary Care Physician [facility] Work Phone: 08-12-2022 14:35-0400 Systolic blood pressure 108 mm[Hg] No Primary Care Physician [facility] Work Phone: 07-28-2022 11:25-0400 Body mass index (BMI) [Ratio] 26.6 kg/m2 No Primary Care Physician [facility] Work Phone: 07-28-2022 11:25-0400 Body weight 68.09 kg No Primary Care Physician [facility] Work Phone: 07-28-2022 11:25-0400 Diastolic blood pressure 66 mm[Hg] No Primary Care Physician [facility] Work Phone: 07-28-2022 11:25-0400 Systolic blood pressure 128 mm[Hg] No Primary Care Physician [facility] Work Phone: 07-15-2022 12:06-0400 Body mass index (BMI) [Ratio] 26.2 kg/m2 No Primary Care Physician [facility] Work Phone: 07-15-2022 12:06-0400 Body weight 67.3 kg No Primary Care Physician [facility] Work Phone: 07-15-2022 12:06-0400 Diastolic blood pressure 70 mm[Hg] No Primary Care Physician [facility] Work Phone: 07-15-2022 12:06-0400 Systolic blood pressure 112 mm[Hg] No Primary Care Physician [facility] Work Phone: 06-29-2022 09:58-0400 Body height 160.02 cm No Primary Care Physician [facility] Work Phone: 06-29-2022 09:58-0400 Body mass index (BMI) [Ratio] 25.9 kg/m2 No Primary Care Physician [facility] Work Phone: 06-29-2022 09:58-0400 Body weight 66.39 kg No Primary Care Physician [facility] Work Phone: 06-29-2022 09:58-0400 Diastolic blood pressure 58 mm[Hg] No Primary Care Physician [facility] Work Phone: 06-29-2022 09:58-0400 Systolic blood pressure 110 mm[Hg] No Primary Care Physician [facility] Work Phone: 06-02-2022 09:43-0400 Body mass index (BMI) [Ratio] 25 kg/m2 No Primary Care Physician [facility] Work Phone: 06-02-2022 09:43-0400 Body weight 64.12 kg No Primary Care Physician [facility] Work Phone: 06-02-2022 09:43-0400 Diastolic blood pressure 60 mm[Hg] No Primary Care Physician [facility] Work Phone: 06-02-2022 09:43-0400 Systolic blood pressure 106 mm[Hg] No Primary Care Physician [facility] Work Phone: 05-02-2022 09:46-0400 Body mass index (BMI) [Ratio] 24 kg/m2 No Primary Care Physician [facility] Work Phone: 05-02-2022 09:46-0400 Body weight 61.4 kg No Primary Care Physician [facility] Work Phone: 05-02-2022 09:46-0400 Diastolic blood pressure 64 mm[Hg] No Primary Care Physician [facility] Work Phone: 05-02-2022 09:46-0400 Systolic blood pressure 116 mm[Hg] No Primary Care Physician [facility] Work Phone: 05-02-2022 09:46-0400 Body height 160.02 cm No Primary Care Physician [facility] Work Phone: 05-02-2022 09:46-0400 Body mass index (BMI) [Ratio] 24 kg/m2 No Primary Care Physician [facility] Work Phone: 05-02-2022 09:46-0400 Body weight 61.4 kg No Primary Care Physician [facility] Work Phone: 05-02-2022 09:46-0400 Diastolic blood pressure 64 mm[Hg] No Primary Care Physician [facility] Work Phone: 05-02-2022 09:46-0400 Systolic blood pressure 116 mm[Hg] No Primary Care Physician [facility] Work Phone: 03-21-2022 10:37-0400 Body mass index (BMI) [Ratio] 23 kg/m2 No Primary Care Physician [facility] Work Phone: 03-21-2022 10:37-0400 Body weight 58.96 kg No Primary Care Physician [facility] Work Phone: 03-21-2022 10:37-0400 Diastolic blood pressure 78 mm[Hg] No Primary Care Physician [facility] Work Phone: 03-21-2022 10:37-0400 Systolic blood pressure 92 mm[Hg] No Primary Care Physician [facility] Work Phone: 03-21-2022 10:37-0400 Body mass index (BMI) [Ratio] 23 kg/m2 No Primary Care Physician [facility] Work Phone: 03-21-2022 10:37-0400 Body weight 58.96 kg No Primary Care Physician [facility] Work Phone: 03-21-2022 10:37-0400 Diastolic blood pressure 78 mm[Hg] No Primary Care Physician [facility] Work Phone: 03-21-2022 10:37-0400 Systolic blood pressure 92 mm[Hg] No Primary Care Physician [facility] Work Phone: 02-07-2022 09:52-0400 Diastolic blood pressure 78 mm[Hg] No Primary Care Physician [facility] Work Phone: 02-07-2022 09:52-0400 Systolic blood pressure 100 mm[Hg] No Primary Care Physician [facility] Work Phone: 02-07-2022 09:27-0400 Body height 160.02 cm No Primary Care Physician [facility] Work Phone: 02-07-2022 09:27-0400 Body mass index (BMI) [Ratio] 22.1 kg/m2 No Primary Care Physician [facility] Work Phone: 02-07-2022 09:27-0400 Body weight 56.69 kg No Primary Care Physician [facility] Work Phone: Encounters Encounter Date Encounter Type Care Provider Facility Start: 05-12-2025 End: 05-12-[address] Nakia Keene DO Work Phone: [facility] Work Phone: Start: 05-12-2025 End: 05-12-[address] Oly Adams MD -[facility] Work Phone: Start: 04-18-2025 End: 04-18-[address] Nakia Keene DO Work Phone: [facility] Work Phone: Start: 04-18-2025 End: 04-18-[address] Nakia Keene DO -[facility] Work Phone: Start: 04-18-2025 End: 04-18-2025 ambulatory Nakia Keene Facility:[facility] Start: 03-21-2025 End: 03-21-[address] Nakia Keene DO Work Phone: [facility] Work Phone: Start: 03-21-2025 End: 03-21-[address] Nakia Keene DO -Laboratory, Specimen Work Phone: Start: 03-21-2025 End: 03-21-[address] Nakia Keene DO -[facility] Work Phone: Start: 03-21-2025 End: 03-21-2025 ambulatory Nakia Keene Facility:[facility] Start: 03-21-2025 End: 03-21-2025 ambulatory aNkia Keene Facility:[facility] Start: 07-01-2024 End: 07-01-2024 ambulatory Jacinta Courtneytings Facility:[facility] Start: 08-26-2022 Non-patient / Non-visit No Primary Care Physician [facility] Start: 08-25-2022 Non-patient / Non-visit No Primary Care Physician [facility] Start: 08-24-2022 Non-patient / Non-visit No Primary Care Physician [facility] Start: 08-24-2022 End: 08-26-2022 Evaluation and management of inpatient No Primary Care Physician [facility] Start: 08-19-2022 Non-patient / Non-visit No Primary Care Physician [facility] Start: 08-18-2022 End: 08-18-2022 ambulatory No Primary Care Physician [facility] Work Phone: Start: 08-18-2022 End: 08-18-2022 Patient encounter procedure No Primary Care Physician [facility] Out[facility] Start: 08-17-2022 End: 08-17-2022 ambulatory No Primary Care Physician [facility] Work Phone: Start: 08-17-2022 End: 08-17-2022 Patient encounter procedure No Primary Care Physician [facility] Start: 08-12-2022 End: 08-12-2022 Patient encounter procedure No Primary Care Physician [facility] Start: 07-28-2022 End: 07-28-2022 Patient encounter procedure No Primary Care Physician [facility] Start: 07-15-2022 End: 07-15-2022 Patient encounter procedure No Primary Care Physician [facility] Start: 06-29-2022 End: 06-29-2022 Patient encounter procedure No Primary Care Physician [facility] Start: 06-02-2022 End: 06-02-2022 Patient encounter procedure No Primary Care Physician [facility] Start: 05-02-2022 End: 05-02-2022 Patient encounter procedure No Primary Care Physician [facility] Ul[facility] Start: 05-02-2022 End: 05-02-2022 Patient encounter procedure No Primary Care Physician [facility] Start: 03-21-2022 End: 03-21-2022 Patient encounter procedure No Primary Care Physician [facility] Start: 02-07-2022 End: 02-07-2022 Patient encounter procedure No Primary Care Physician [facility] Start: 02-07-2022 End: 02-07-2022 Patient encounter procedure No Primary Care Physician [facility] Procedures Date Procedure Procedure Detail Performing Clinician Start: 04-18-2025 Hepatitis C antibody measurement Dr. Nakia Keene DO Work Phone: Comment on above: Reactive: Presumptiv e evidence of antibodies to HCV. Follow CDC recommendations for supplemental testing.Non-Reactive: Antibodies to HCV were not detected; does not exclude the possibility of exposure to HCVReactive Results are presumptive evidence of antibodies to HCV. Follow CDC recommendations for supplemental testing.Order confirmation testing: HCV Quant by PCR testing - HCVPCR #[id number] Non Reactive: < 0.8 Equivocal: >/= 0.8 to < 1.0 Reactive: >/= 1.0The [facility] requires that a reactive/equivocal HCV antibody result be sent out for confirmation. HCV Quant by PCR testing. Start: 04-18-[address] Nakia Keene DO Work Phone: Comment on above: Antibody Result: Int erpretationNon-Reactive: Non- ImmuneReactive: ImmuneThe following results were obtained with the [employer] Rubella IgG assay. Results from assays of other manufacturers cannot be used interchangeably. Start: 04-18-2025 Serologic test for syphilis Dr. Nakia Keene DO Work Phone: Start: 03-21-2025 Liquid based cervica l cytology screening Dr. Nakia Keene DO Work Phone: Comment on above: NEGATIVE FOR INTRAEP ITHELIAL LESION OR MALIGNANCY. This liquid based Th inPrep(R) pap test was screened withthe use of an image guided system. The HPV DNA reflex c riteria were not met with this specimenresult therefore, no HPV testing was performed.Performed at: [address] [id number] Director: Michelle Casper MD, Phone: [phone] Start: 05-02-2022 anatomy study No Primary Care Physician Start: 02-07-2022 Urine culture No Primar y Care Physician Group B Streptococcu s Culture No Primary Care Physician H/O: section History of delivery No Primary Care Physician Comment on above: X 3 H/O: section Status pos t section No Primary Care Physician H/O: section History of delivery, currently Dr. Nakia Keene DO Comment on above: x3, would like to di scuss vs rpt csec x3,plan RLTCS H/O: section History of delivery, currently Dr. Nakia Keene DO H/O: section History of delivery, currently Dr. Oly Adams MD Viral antigen assay No Prima ry Care Physician Plan of Treatment Date Care Activity Detail Author Start: 03-21-2025 Liquid based cervical cytology screening [facility] Start: 08-26-2022 Patient discharge [facility] Work Phone: Start: 08-25-2022 Application of abdominal corset [facility] Work Phone: Start: 08-24-2022 Notification of physician [facility] Work Phone: Start: 08-24-2022 Post-anesthesia assessment [facility] Work Phone: Start: 08-24-2022 [facility] Work Phone: Start: 08-24-2022 Administration of medication [facility] Work Phone: Start: 08-24-2022 Ambulation therapy management [facility] Work Phone: Start: 08-24-2022 Application of device [facility] Work Phone: Start: 08-24-2022 Application of intermittent pneumatic compression device [facility] Work Phone: Start: 08-24-2022 Assessment of risk of venous thromboembolism [facility] Work Phone: Start: 08-24-2022 Catheterization of vein [facility] Work Phone: Start: 08-24-2022 Deep breathing and coughing exercises [facility] Work Phone: Start: 08-24-2022 Exercises [facility] Work Phone: Start: 08-24-2022 Incentive spirometry [facility] Work Phone: Start: 08-24-2022 Measuring intake and output [facility] Work Phone: Start: 08-24-2022 Notification of physician [facility] Work Phone: Start: 08-24-2022 Procedure discontinued [facility] Work Phone: Start: 08-24-2022 Provision of activity privileges [facility] Work Phone: Start: 08-24-2022 Vital signs measurements [facility] Work Phone: Start: 08-24-2022 Wound care [facility] Work Phone: Start: 08-24-2022 [facility] Work Phone: Start: 08-24-2022 Application of abdominal corset [facility] Work Phone: Start: 08-24-2022 section Repeat (Not Applicable) [facility] Work Phone: Start: 08-24-2022 Admission procedure [facility] Work Phone: Start: 08-24-2022 Verification routine [facility] Work Phone: Start: 08-17-2022 Patient discharge [facility] Work Phone: Start: 08-17-2022 Streptococcus agalactiae [Presence] in Unspecified specimen by Organism specific culture [facility] Work Phone: Beta-hemolytic Streptococcus culture [facility] Work Phone: CBC W Auto Different ial panel - Blood [facility] Work Phone: CBC W Auto Different ial panel - Blood [facility] Comprehensive metabo lic 2000 panel - Serum or Plasma [facility] anatomy study [facility] Group B Streptococcu s Culture Group B Streptococcus Culture [facility] Work Phone: Hepatitis C antibody measurement [facility] Path report.final Dx Spec Wo [facility] Patient Education After a [place] Work Phone: Patient referral [facility] Work Phone: Protein/Creatinine [ Ratio] in Urine [facility] Rubella IgG measurement [facility] Serologic test for syphilis [facility] Payers Date Payer Category Payer Self-pay [id number] 2025 Unknown . [id number] 2024 Self-pay [id number] Unknown [employer] 0 [id number] Unknown [id number] Unknown [id number] Unknown [id number] Unknown [id number] Unknown [id number] Social History Date Type Detail Facility Start: 02-07-2022 End: 08-24-2022 Tobacco smoking status NHIS Unknown if ever smoked [facility] Work Phone: Start: 06-02-2020 None [facility] Start: 1995 Sex Assigned At Female W [facility] Start: 03-21-2025 Tobacco smoking stat us PAIS Never smoked tobacco (finding) [facility] Start: 03-26-2025 Sex Female (finding) [place] Goals Date Patient Goal Desired Activity /State Functional Status Date Assessment Result Facility 08-24-2022 Functional status Activity Abili ty Bedrest;Post Op [facility] Work Phone: Mental Status Date Assessment Result Facility 08-25-2022 Cognitive function Voice/Name [facility] Work Phone: Clinical Notes 02-07-2022 to 05-12-2025 Note Date & Type Note Facility 05-12-2025 Progress note [facility] 03-21-2025 Evaluation note Diagnosis Onset Date Resolution History of delivery, currently acute March 21, 2025 1:42pm History of eclampsia acute Apri l 2024 1:42pm History of depression, currently acute March 21, 2025 1:42pm History of delivery, currently acute March 21, 2025 1:42pm History of rupture of uterus acute March 21, 2025 1:42pm acute March 21 1:42pm Supervision of high-risk acute March 21, 2025 1:42pm [facility] Work Phone: 1(480) 349-500304-25-2025 Evaluation note* Diagnosis Onset Date Resolution Status Admit Date History of delivery , currently acute March 21, 025 1:42pm History of eclampsia acute Apr l 2024 1:42pm History of depression, currently acute A pril 2024 1:42pm History of delivery, currently acute March 21 025 1:42pm History of rupture of uterus acute March 21, 2025 1:42pm acute March 21 1:42pm Supervision of high-risk acute March 21, 2025 1:42pm History of delivery , currently acute April 18 11:33am History of eclampsia acute April 18, 2025 11:33am History of depression, currently acute M ay 2024 11:33am History of delivery, currently acute April 18 11:33am History of rupture of uterus acute April 18, 2025 11:33am acute April 18, 2025 11:33am Supervision of high-risk acute April 18, 2025 1 1:33am [facility] Work Phone: 1(873) 670-804804-25-2025 Evaluation note* Diagnosis Onset Date Resolution Status Admit Date History of delivery , currently acute March 21, 025 1:42pm History of eclampsia acute Apri l 2024 1:42pm History of depression, currently acute A pril 2024 1:42pm History of delivery, currently acute March 21 025 1:42pm History of rupture of uterus acute March 21, 2025 1:42pm acute March 21 1:42pm Supervision of high-risk acute March 21, 2025 1:42pm History of delivery , currently acute April 18 11:33am History of eclampsia acute April 18, 2025 11:33am History of depression, currently acute M 2024 11:33am History of delivery, currently acute April 18 11:33am History of rupture of uterus acute April 18, 2025 11:33am acute April 18, 2025 11:33am Supervision of high-risk acute April 18, 2025 1 1:33am History of delivery , currently acute May 12 9:38am History of eclampsia acute May 12, 2025 9:38am History of depression, currently acute J 2024 9:38am History of delivery, currently acute May 12 9:38am History of rupture of uterus acute May 12, 2025 9:38am acute May 12 9:38am Supervision of high-risk acute May 12, 2025 9:38am [facility] Work Phone: [phone] NotePap Smear Specimen AdequacyCommunity Medical Centerch 2021 10:40amCommentSatisfactory for evaluation. No endocervical component is identified.An endocervical component is not commonly seen in the patient.[facility] A#[id number] Work Phone: Comment on above:Satisfactory for evaluation. No endocervical component is identified.An endocervical component is not commonly seen in the patient.02-07-2022 NotePap Smear Specimen AdequacyMar 2021 10:40amCommentSatisfactory for evaluation. No endocervical component is identified.An endocervical component is not commonly seen in the patient.[facility] A#[id number] [facility]ide [facility] Hospital Work Phone: Comment on above:Satisfactory for evaluation. No endocervical component is identified.An endocervical component is not commonly seen in the patient.Evaluation note* Diagnosis Onset Date Resolution Status History of delivery acute History of eclampsia acute History of rupture of uterus acute acute Supervision of high-risk [facility] Work Phone: Evaluation note* Diagnosis Onset Date Resolution Status History of delivery acute History of eclampsia acute History of rupture of uterus acute acute Supervision of high-risk acute History of delivery acute History of eclampsia acute History of rupture of uterus acute acute Rubella non-immune status, antepartum acute Supervision of high-risk acute History of delivery acute History of eclampsia acute History of rupture of uterus acute acute Rubella non-immune status, antepartum acute Supervision of high-risk acute [facility] Work Phone: Evaluation note* Diagnosis Onset Date Resolution Status History of delivery acute History of eclampsia acute History of rupture of uterus acute acute Rubella non-immune status, antepartum acute Supervision of high-risk acute History of delivery acute History of eclampsia acute History of rupture of uterus acute acute Rubella non-immune status, antepartum acute Supervision of high-risk acute Club foot, , affecting care of mother, antepartum acute History of delivery acute History of eclampsia acute History of rupture of uterus acute acute Rubella non-immune status, antepartum acute Supervision of high-risk acute Club foot, , affecting care of mother, antepartum acute History of delivery acute History of eclampsia acute History of rupture of uterus acute acute Rubella non-immune status, antepartum acute Supervision of high-risk acute Thrombocytopenia affecting acute [facility] Work Phone: Evaluation note* Diagnosis Onset Date Resolution Status History of delivery acute History of eclampsia acute History of rupture of uterus acute acute Rubella non-immune status, antepartum acute Supervision of high-risk acute Club foot, , affecting care of mother, antepartum acute History of delivery acute History of eclampsia acute History of rupture of uterus acute acute Rubella non-immune status, antepartum acute Supervision of high-risk acute Club foot, , affecting care of mother, antepartum acute History of delivery acute History of eclampsia acute History of rupture of uterus acute acute Rubella non-immune status, antepartum acute Supervision of high-risk acute Thrombocytopenia affecting acute Club foot, , affecting care of mother, antepartum acute History of delivery acute History of eclampsia acute History of rupture of uterus acute acute Rubella non-immune status, antepartum acute Supervision of high-risk acute Tetanus, diphtheria, and aleida llular pertussis (Tdap) vaccination declined acute Thrombocytopenia affecting acute Club foot, , affecting care of mother, antepartum acute History of delivery acute History of eclampsia acute History of rupture of uterus acute acute Rubella non-immune status, antepartum acute Supervision of high-risk acute Tetanus, diphtheria, and aleida llular pertussis (Tdap) vaccination declined acute Thrombocytopenia affecting acute Club foot, , affecting care of mother, antepartum acute History of delivery acute History of eclampsia acute History of rupture of uterus acute acute Rubella non-immune status, antepartum acute Supervision of high-risk acute Tetanus, diphtheria, and aleida llular pertussis (Tdap) vaccination declined acute Thrombocytopenia affecting acute Club foot, , affecting care of mother, antepartum acute History of delivery acute History of eclampsia acute History of rupture of uterus acute acute Rubella non-immune status, antepartum acute Supervision of high-risk acute Tetanus, diphtheria, and aleida llular pertussis (Tdap) vaccination declined acute Thrombocytopenia affecting acute [facility] Work Phone: Evaluation note* Diagnosis Onset Date Resolution Status History of delivery acute History of eclampsia acute History of rupture of uterus acute acute Rubella non-immune status, antepartum acute Supervision of high-risk acute Club foot, , affecting care of mother, antepartum acute History of delivery acute History of eclampsia acute History of rupture of uterus acute acute Rubella non-immune status, antepartum acute Supervision of high-risk acute Club foot, , affecting care of mother, antepartum acute History of delivery acute History of eclampsia acute History of rupture of uterus acute acute Rubella non-immune status, antepartum acute Supervision of high-risk acute Thrombocytopenia affecting acute Club foot, , affecting care of mother, antepartum acute History of delivery acute History of eclampsia acute History of rupture of uterus acute acute Rubella non-immune status, antepartum acute Supervision of high-risk acute Tetanus, diphtheria, and aleida llular pertussis (Tdap) vaccination declined acute Thrombocytopenia affecting acute Club foot, , affecting care of mother, antepartum acute History of delivery acute History of eclampsia acute History of rupture of uterus acute acute Rubella non-immune status, antepartum acute Supervision of high-risk acute Tetanus, diphtheria, and aleida llular pertussis (Tdap) vaccination declined acute Thrombocytopenia affecting acute Club foot, , affecting care of mother, antepartum acute History of delivery acute History of eclampsia acute History of rupture of uterus acute acute Rubella non-immune status, antepartum acute Supervision of high-risk acute Tetanus, diphtheria, and aleida llular pertussis (Tdap) vaccination declined acute Thrombocytopenia affecting acute Club foot, , affecting care of mother, antepartum acute History of delivery acute History of eclampsia acute History of rupture of uterus acute acute Rubella non-immune status, antepartum acute Supervision of high-risk acute Tetanus, diphtheria, and aleida llular pertussis (Tdap) vaccination declined acute Thrombocytopenia affecting acute Club foot, , affecting care of mother, antepartum acute History of delivery acute History of eclampsia acute History of rupture of uterus acute acute Rubella non-immune status, antepartum acute Supervision of high-risk acute Thrombocytopenia affecting acute Club foot, , affecting care of mother, antepartum acute History of delivery acute History of eclampsia acute History of rupture of uterus acute acute Rubella non-immune status, antepartum acute Status post section acute Supervision of high-risk acute Tetanus, diphtheria, and aleida llular pertussis (Tdap) vaccination declined acute Thrombocytopenia affecting acute [facility] Work Phone: Progress note Author Oly Adams [facility] Note Date/Time May 12, 2025 10:3 4am [facility]'[address], [address] [place] [id number] OFFICE VISIT Date of Service: 05/12/25 MR#: [id number] Acct: [id number] Name: ROBIN ORTEGA Rep #: [id number] : 1995 Provider: Dr. 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 Is patient in pain?: No Feel stressed/tense/nervous/anxious/difficulty sleeping: not at all Allergies No Known Allergies Allergy (Verified 05/12/25 09:43) Medications ?Medication ?Instructions ?Recorded ?Confirmed ?Type docosahexaenoic acid 200 mg mg PO 03/21/25 05/12/25 Hi story capsule ( DHA) Last Menstrual Period: 01/22/25 Zika: Zika virus screening: Negative : No PFSH PFSH Medical History History of rupture of uterus Anxiety and depression Rubella non-immune status, antepartum Superficial varicosities Headache Surgical History History of delivery Social History adopted: No household members: spouse and children number of children: 3 current occupation: [employer] current occupational exposures/hazards: No pets and animals: Yes pets and animals: cat(s), dog(s) and farm animals history of recent travel: No sexually active: Yes Smoking Status: Never smoker alcohol intake: never substance use type: does not use well-balanced diet: daily or most days caffeine: No eating out: rarely or never during the past year weight has: remained stable what type of physical activity do you participate in: walking [employer]/mormonism: Arthur seatbelt use: never do you feel safe at home: Yes additional social history: : [employer] History 4 Elective abortions 0 Hx Para 3 Spontaneous abortions 0 Hx # Term Pregnancies 2 Ectopic pregnancies 0 Hx # Pregnancies 1 Multiple births 0 # of living children 3 Past Pregnancies Del. Date Name GA/Weeks Outcome Route Bth Weight Infant Gen Labor Lgth Anesthesia Del Diegoatn Provider FOB 03/12/19 Kd 40 live - full term 9lbs 9oz Male spinal [facility] Adrian 06/02/20 Ada 38 live - full term 6lbs 12oz Female spinal [facility] Adrian 08/24/22 Gregory 35 live - 6lbs 2oz Male spinal [facility] amada Anali Adrian Delivery Date: 03/12/19 Last Updated by: Oly Adams MD preeclampsia Delivery Date: 06/02/20 Last Updated by: Naomie Swann RN uterine rupture HPI 16 wk ob *csection Details: ROBIN ORTEGA is a 30 year old who presents for routine OB visit. OB Visit MICHAEL Calculator 2 Estimated Delivery Date Method Current WG Current Estimate 10/29/25 LMP (Certain) 15w 5d Other Estimates 10/27/25 Ultrasound #1 16w 0d Expected Delivery Route/Plan for repeat cs Specific Issue/Plans Covid status: [] Flu vaccine: [] Tdap vaccine: [] Rhogam: [] LARC form signed: [] Problem list reviewed and updated with the most current plan of care details and appropriate orders placed. Relevant counseling for the gestational age provided. Continue routine care and follow up unless otherwise noted in visit notes/problem list details Initial Weight: Not Recorded Date -?-?-?-?-?-?-?-?-?-?-?-?- EGA Weight BP Urine Prot -?-?-?-?-?-?-?-?-?-?-?-?- Glucose FHR FuHt Pres Dilation -?-?-?-?-?-?-?-?-?-?-?-?- Effaced St Visit Note 03/21/25 -?-?-?-?-?-?-?-?-?-?-?-?- 8w 2d 126 lb 4 oz 118/62 -?-?-?-?-?-?-?-?-?-?-?-?- 178 -?-?-?-?-?-?-?-?-?-?-?-?- JV-CRL consisten t with LMP. declines NIPT. 04/18/25 -?-?-?-?-?-?-?-?-?-?-?-?- 12w 2d 126 lb 4 oz 101/64 Nega tive -?-?-?-?-?-?-?-?-?-?-?-?- Negative 150 -?-?-?-?-?-?-?-?-?-?-?-?- JV- pt noticed s ome spotting a few days after her last visit. She admitted to drinking red raspberry leaf tea. importance of refraining from this and other natural substances without consulting with us first discussed. ok to resume red raspberry leaf tea AFTER 37 weeks. labs today 05/12/25 -?-?-?-?-?-?-?-?-?-?-?-?- 15w 5d 132 lb 6 oz 106/67 Nega tive -?-?-?-?-?-?-?-?-?-?-?-?- Negative 150 -?-?-?-?-?-?-?-?-?-?-?-?- SM- no vb lof cr amping ACOG First Trimester First Trimester: Discussed Second Trimester Second Trimester: Signs and Symptoms of Labor, Selecting a care provider, Reproductive Life Planning & Contreception, Care Planning and Intimate Partner Violence; Discussed Tobacco Cessation and Discussed Depression/Anxiety Third Trimester Third Trimester: Labor support person(s), Circumcision preference, Signs and Symptoms of Preeclampsia and Feeding No Results POC Urinalysis 2 Dip (Clinic) Office Urine Glucose Negative Last Edit by Jacinta Llanes on 05/12/25 09:50 Office Urine Protein Negative Last Edit by Jacinta Llanes on 05/12/25 09:50 Coding Level of Care Code OB Routine Diagnoses History of delivery, currently O09.899 History of depression, currently O99.891; Z86.59 History of delivery, currently O34.219 History of eclampsia Z87.59 History of rupture of uterus Z87.828 Supervision of high-risk O09.90 15 weeks gestation of Z3A.15 Weeks of gestation: 15 weeks Assessment and Plan Assessment and Plan (1) History of delivery, currently : Status: Acute Comment: Last - 35wk delivery (2) History of depression, currently : Status: Acute (3) History of delivery, currently : Status: Acute Comment: x3,plan RLTCS (4) History of eclampsia: Status: Acute Comment: 1st - w/seizures; Pre-e baseline labs ordered w/NOB. Baby ASA @ 12- 28weeks (5) History of rupture of uterus: Status: Acute Comment: 2019 (6) Supervision of high-risk : Status: Acute Comment: PRR , MICHAEL 10/29/25, PC: Carley Yi & Gregory, : Adrian (7) : Status: Acute Qualifiers: Weeks of gestation: 15 weeks Qualified Code(s): Z3A.15 - 15 weeks gestation of Comment: Discussed genetic/carrier testing - undecided Orders: Orders POC Urinalysis 2 Dip (Clinic) Today 05/12/25 1034 <Electronically signed by Oly mcelroy MD> Date _ Oly Adams MD Cosigner Signature: Date (if applicable) CC: ~ [facility] Work Phone: Reason for referral (narrative)No reason for referral information availableWOhioHealth Riverside [facility] Work Phone: Chief Complaint and Reason for Visit Chief Complaint NOB-LMP 12/12/21 Reason for Visit History of delivery History of eclampsia History of rupture of uterus Supervision of high-risk Chief Complaint NOB-LMP 12/12/21 14WK OB 20 WK OB ANATOMY Reason for Visit History of delivery History of eclampsia History of rupture of uterus Supervision of high-risk History of delivery History of eclampsia History of rupture of uterus Rubella non-immune status, antepartum Supervision of high-risk History of delivery History of eclampsia History of rupture of uterus Rubella non-immune status, antepartum Supervision of high-risk Chief Complaint 14WK OB 20 WK OB ANATOMY 24 WK OB 28 WK OB/GLUCOSE Reason for Visit History of delivery History of eclampsia History of rupture of uterus Rubella non-immune status, antepartum Supervision of high-risk History of delivery History of eclampsia History of rupture of uterus Rubella non-immune status, antepartum Supervision of high-risk Club foot, , affecting care of mother, antepartum History of delivery History of eclampsia History of rupture of uterus Rubella non-immune status, antepartum Supervision of high-risk Club foot, , affecting care of mother, antepartum History of delivery History of eclampsia History of rupture of uterus Rubella non-immune status, antepartum Supervision of high-risk Thrombocytopenia affecting Chief Complaint 20 WK OB ANATOMY 24 WK OB 28 WK OB/GLUCOSE 30 WK OB 32wk ob 35wk ob 36wk ob CELESTONE SHOT Reason for Visit History of delivery History of eclampsia History of rupture of uterus Rubella non-immune status, antepartum Supervision of high-risk Club foot, , affecting care of mother, antepartum History of delivery History of eclampsia History of rupture of uterus Rubella non-immune status, antepartum Supervision of high-risk Club foot, , affecting care of mother, antepartum History of delivery History of eclampsia History of rupture of uterus Rubella non-immune status, antepartum Supervision of high-risk Thrombocytopenia affecting Club foot, , affecting care of mother, antepartum History of delivery History of eclampsia History of rupture of uterus Rubella non-immune status, antepartum Supervision of high-risk Tetanus, diphtheria, and acellular pertussis (Tdap) vaccination declined Thrombocytopenia affecting Club foot, , affecting care of mother, antepartum History of delivery History of eclampsia History of rupture of uterus Rubella non-immune status, antepartum Supervision of high-risk Tetanus, diphtheria, and acellular pertussis (Tdap) vaccination declined Thrombocytopenia affecting Club foot, , affecting care of mother, antepartum History of delivery History of eclampsia History of rupture of uterus Rubella non-immune status, antepartum Supervision of high-risk Tetanus, diphtheria, and acellular pertussis (Tdap) vaccination declined Thrombocytopenia affecting Club foot, , affecting care of mother, antepartum History of delivery History of eclampsia History of rupture of uterus Rubella non-immune status, antepartum Supervision of high-risk Tetanus, diphtheria, and acellular pertussis (Tdap) vaccination declined Thrombocytopenia affecting Chief Complaint 20 WK OB ANATOMY 24 WK OB 28 WK OB/GLUCOSE 30 WK OB 32wk ob 35wk ob 36wk ob CELESTONE SHOT CELESTONE INJECTION Reason for Visit History of delivery History of eclampsia History of rupture of uterus Rubella non-immune status, antepartum Supervision of high-risk Club foot, , affecting care of mother, antepartum History of delivery History of eclampsia History of rupture of uterus Rubella non-immune status, antepartum Supervision of high-risk Club foot, , affecting care of mother, antepartum History of delivery History of eclampsia History of rupture of uterus Rubella non-immune status, antepartum Supervision of high-risk Thrombocytopenia affecting Club foot, , affecting care of mother, antepartum History of delivery History of eclampsia History of rupture of uterus Rubella non-immune status, antepartum Supervision of high-risk Tetanus, diphtheria, and acellular pertussis (Tdap) vaccination declined Thrombocytopenia affecting Club foot, , affecting care of mother, antepartum History of delivery History of eclampsia History of rupture of uterus Rubella non-immune status, antepartum Supervision of high-risk Tetanus, diphtheria, and acellular pertussis (Tdap) vaccination declined Thrombocytopenia affecting Club foot, , affecting care of mother, antepartum History of delivery History of eclampsia History of rupture of uterus Rubella non-immune status, antepartum Supervision of high-risk Tetanus, diphtheria, and acellular pertussis (Tdap) vaccination declined Thrombocytopenia affecting Club foot, , affecting care of mother, antepartum History of delivery History of eclampsia History of rupture of uterus Rubella non-immune status, antepartum Supervision of high-risk Tetanus, diphtheria, and acellular pertussis (Tdap) vaccination declined Thrombocytopenia affecting Chief Complaint 20 WK OB ANATOMY 24 WK OB 28 WK OB/GLUCOSE 30 WK OB 32wk ob 35wk ob 36wk ob CELESTONE SHOT CELESTONE INJECTION CELESTONE INJECTION REPEAT C SECTION REPEAT C SECTION REPEAT C SECTION Reason for Visit History of delivery History of eclampsia History of rupture of uterus Rubella non-immune status, antepartum Supervision of high-risk Club foot, , affecting care of mother, antepartum History of delivery History of eclampsia History of rupture of uterus Rubella non-immune status, antepartum Supervision of high-risk Club foot, , affecting care of mother, antepartum History of delivery History of eclampsia History of rupture of uterus Rubella non-immune status, antepartum Supervision of high-risk Thrombocytopenia affecting Club foot, , affecting care of mother, antepartum History of delivery History of eclampsia History of rupture of uterus Rubella non-immune status, antepartum Supervision of high-risk Tetanus, diphtheria, and acellular pertussis (Tdap) vaccination declined Thrombocytopenia affecting Club foot, , affecting care of mother, antepartum History of delivery History of eclampsia History of rupture of uterus Rubella non-immune status, antepartum Supervision of high-risk Tetanus, diphtheria, and acellular pertussis (Tdap) vaccination declined Thrombocytopenia affecting Club foot, , affecting care of mother, antepartum History of delivery History of eclampsia History of rupture of uterus Rubella non-immune status, antepartum Supervision of high-risk Tetanus, diphtheria, and acellular pertussis (Tdap) vaccination declined Thrombocytopenia affecting Club foot, , affecting care of mother, antepartum History of delivery History of eclampsia History of rupture of uterus Rubella non-immune status, antepartum Supervision of high-risk Tetanus, diphtheria, and acellular pertussis (Tdap) vaccination declined Thrombocytopenia affecting Club foot, , affecting care of mother, antepartum History of delivery History of eclampsia History of rupture of uterus Rubella non-immune status, antepartum Supervision of high-risk Thrombocytopenia affecting Club foot, , affecting care of mother, antepartum History of delivery History of eclampsia History of rupture of uterus Rubella non-immune status, antepartum Status post section Supervision of high-risk Tetanus, diphtheria, and acellular pertussis (Tdap) vaccination declined Thrombocytopenia affecting Chief Complaint Admit Date New ob, lmp 01/22March 21, 2025 1:4 2pm Reason for Visit Admit Date History of delivery, currently March 21, 2025 1:42pm History of eclampsia March 21, 2025 1: 42pm History of depression, fazal tly March 21, 2025 1:42pm History of delivery, currently p regnant March 21, 2025 1:42pm History of rupture of uterus March 21, 2025 1:42pm March 21, 2025 1:4 2pm Supervision of high-risk March 21, 2025 1:42pm Chief Complaint Admit Date New ob, lmp 01/22March 21, 2025 1:4 2pm 12 wk ob *csection April 18, 2025 11:33 am Reason for Visit Admit Date History of delivery, currently March 21, 2025 1:42pm History of eclampsia March 21, 2025 1: 42pm History of depression, fazal tly March 21, 2025 1:42pm History of delivery, currently p regnant March 21, 2025 1:42pm History of rupture of uterus March 21, 2025 1:42pm March 21, 2025 1:4 2pm Supervision of high-risk March 21, 2025 1:42pm History of delivery, currently April 18, 2025 11:33am History of eclampsia April 18, 2025 11:3 3am History of depression, fazal goff April 18, 2025 11:33am History of delivery, currently p regnant April 18, 2025 11:33am History of rupture of uterus April 18, 11:33am April 18, 2025 11:33 am Supervision of high-risk March 282024 11:33am Chief Complaint Admit Date New ob, lmp 01/22March 21, 2025 1:4 2pm 12 wk ob *csection April 18, 2025 11:33 am 16 wk ob *csection May 12, 2025 9:38 am Reason for Visit Admit Date History of delivery, currently March 21, 2025 1:42pm History of eclampsia March 21, 2025 1: 42pm History of depression, fazal tly March 21, 2025 1:42pm History of delivery, currently p regnant March 21, 2025 1:42pm History of rupture of uterus March 21, 2025 1:42pm March 21, 2025 1:4 2pm Supervision of high-risk March 21, 2025 1:42pm History of delivery, currently April 18, 2025 11:33am History of eclampsia April 18, 2025 11:3 3am History of depression, fazal goff April 18, 2025 11:33am History of delivery, currently p regnant April 18, 2025 11:33am History of rupture of uterus April 18, 2 025 11:33am April 18, 2025 11:33 am Supervision of high-risk March 282024 11:33am History of delivery, currently May 12, 2025 9:38am History of eclampsia May 12, 2025 9:3 8am History of depression, fazal goff May 12, 2025 9:38am History of delivery, currently p regnant May 12, 2025 9:38am History of rupture of uterus May 12, 2025 9:38am May 12, 2025 9:38 am Supervision of high-risk May 12, 2025 9:38am Advance Directives Advance Directive Response Recorded Date/ Time Living Will No June 02, 2020 5 :06am Power of Eeo Officer No June 02, 2020 5:06am Advance Directive Response Recorded Date/ Time Living Will No August 24, 2022 5:37am Power of Eeo Officer No July 5:37am Summary Purpose Family History No Family History Records Found Additional Source Comments Goals (unrecognized section and content) Goals may be documented in a n alternate sectionGoals may be documented in an alternate sectionGoals may be documented in an alternate sectionGoals may be documented in an alternate sectionGoals may be documented in an alternate sectionGoals may be documented in an alternate sectionGoals may be documented in an alternate sectionGoals may be documented in an alternate section Care Teams (unrecognized sec tion and content) Team Status: Inactive Member Role Status Dates Dr. Nakia Keene DO Attending Provider Activ e Start: March 21, 2025 End: March 21, 2025 Team Status: Inactive Member Role Status Dates Dr. Nakia Keene DO Attending Provider Activ e Start: March 21, 2025 End: March 21, 2025 Dr. Nakia Keene DO Referring Provider Activ e Start: March 21, 2025 End: March 21, 2025 Team Status: Inactive Member Role Status Dates Dr. Nakia Keene DO Attending Provider Activ e Start: April 18, 2025 End: April 18, 2025 Team Status: Inactive Member Role Status Dates Dr. Nakia Keene DO Attending Provider Activ e Start: April 18, 2025 End: April 18, 2025 Dr. Nakia Keene DO Referring Provider Activ e Start: April 18, 2025 End: April 18, 2025 Team Status: Inactive Member Role Status Dates Dr. Oly Adams MD Attending Provider Active Start: May 12, 2025 End: May 12, 2025 INFORMATION SOURCE (unrecogn ized section and content) DATE CREATED AUTHOR 04/24/2025 [facility] FOR RECORDS PERTAINING TO PATIENTS WHO ARE OR HAVE BEEN ENROLLED IN A CHEMICAL DEPENDENCY/SUBSTANCEABUSE PROGRAM, SOME INFORMATION MAY BE OMITTED. This clinical summary was aggregated from multiple sources. Caution should be exercised in using it in the provision of clinical care. This summary normalizes information from multiple sources, and as a consequence, information in this document may materially change the coding, format and clinical context of patient data. In addition, data may be omitted in some cases. CLINICAL DECISIONS SHOULD BE BASED ON THE PRIMARY CLINICAL RECORDS. [facility]. provides no warranty or guarantee of the accuracy or completeness of information in this document.
== END | disposition home or self-care (01) ==
LOC: LABSPEC 11:39
PROVIDERS: Referring Provider Obstetrics & Gynecology; Visit Provider Obstetrics & Gynecology
DX: O09.90 Supervision of high risk pregnancy, unspecified, unspecified trimester (principal); Z3A.00 Weeks of gestation of pregnancy not specified
CPT/HCPCS: 87086

== ENCOUNTER → 2025-06-11 | Outpatient (CLI) | payer SELFPAY, OTHER ==
--- NOTE | 2025-06-11 15:14 | US_ITS ---
PROCEDURE: OB ANATOMY W/ TRANSVAGINAL 06/11/2025 REASON FOR EXAM: ANATOMY/CERVICAL LENGTH TECHNIQUE: OB ANATOMY W/ TRANSVAGINAL COMPARISON: None FINDINGS Number: 1 Position: Transverse lie left Placental Position: Posterior and right lateral. Complete previa. Placental Abnormalities: Placenta previa. DIMENSIONS: Biparietal Diameter: 5.03 cm: 21 weeks and 2 days: 91 percentile/ Head Circumference: 19.02 cm: 21 weeks and 2 days: 91 percentile/ Abdominal Circumference: 15.46 cm: 20 weeks and 4 days: 66 percentile/ Femur Length: 3.1 cm: 19 weeks and 4 days: 29 percentile/ ESTIMATED WEIGHT: 347 g plus/-52 g ESTIMATED WEIGHT PERCENTILE (24+ weeks): 64 ESTIMATED GESTATIONAL AGE: Baseline: 20 weeks and 0 days By Ultrasound: 20 weeks and 4 days ESTIMATED DATE OF DELIVERY: Baseline: October 29, 2025 By Ultrasound: October 25, 2020 5 BIOPHYSICAL ASSESSMENT: Amniotic Fluid Volume: 6.8 cm Amniotic Fluid Index: Normal range (8-24 cm normal range) Cardiac Motion: 147 beats per minute (average) Trunk and Limb Motion: Present. MATERNAL ANATOMY: Adnexa: Both maternal ovaries are visualized and unremarkable. Cervical Length (if measured): 3.1 cm ANATOMY: Spine: Unremarkable Cranium: Unremarkable Cerebellum: Unremarkable Cisterna Magna: Unremarkable Cavum Septum Pellucidi: Unremarkable Lateral Ventricles: Unremarkable Choroid Plexus: Unremarkable Midline Falx: Unremarkable Nuchal Fold: Unremarkable Heart: Unremarkable Stomach: Unremarkable Kidneys: Mild fullness of the renal pelvis bilaterally measuring 4 mm. Bladder: Unremarkable Umbilical Cord: Unremarkable Extremities: Unremarkable US/OB Anatomy w/ Transvaginal IMPRESSION: Single live intrauterine gestation with a mean gestational age of 20 weeks and 4 days. Complete placenta previa. Mild fullness of the renal pelves bilaterally measuring 0.4 cm. Reading Location: [id number]
--- NOTE | 2025-06-11 15:14 | US_ITS ---
PROCEDURE: OB ANATOMY W/ TRANSVAGINAL 06/11/2025 REASON FOR EXAM: ANATOMY/CERVICAL LENGTH TECHNIQUE: OB ANATOMY W/ TRANSVAGINAL COMPARISON: None FINDINGS Number: 1 Position: Transverse lie left Placental Position: Posterior and right lateral. Complete previa. Placental Abnormalities: Placenta previa. DIMENSIONS: Biparietal Diameter: 5.03 cm: 21 weeks and 2 days: 91 percentile/ Head Circumference: 19.02 cm: 21 weeks and 2 days: 91 percentile/ Abdominal Circumference: 15.46 cm: 20 weeks and 4 days: 66 percentile/ Femur Length: 3.1 cm: 19 weeks and 4 days: 29 percentile/ ESTIMATED WEIGHT: 347 g plus/-52 g ESTIMATED WEIGHT PERCENTILE (24+ weeks): 64 ESTIMATED GESTATIONAL AGE: Baseline: 20 weeks and 0 days By Ultrasound: 20 weeks and 4 days ESTIMATED DATE OF DELIVERY: Baseline: October 29, 2025 By Ultrasound: October 25, 2020 5 BIOPHYSICAL ASSESSMENT: Amniotic Fluid Volume: 6.8 cm Amniotic Fluid Index: Normal range (8-24 cm normal range) Cardiac Motion: 147 beats per minute (average) Trunk and Limb Motion: Present. MATERNAL ANATOMY: Adnexa: Both maternal ovaries are visualized and unremarkable. Cervical Length (if measured): 3.1 cm ANATOMY: Spine: Unremarkable Cranium: Unremarkable Cerebellum: Unremarkable Cisterna Magna: Unremarkable Cavum Septum Pellucidi: Unremarkable Lateral Ventricles: Unremarkable Choroid Plexus: Unremarkable Midline Falx: Unremarkable Nuchal Fold: Unremarkable Heart: Unremarkable Stomach: Unremarkable Kidneys: Mild fullness of the renal pelvis bilaterally measuring 4 mm. Bladder: Unremarkable Umbilical Cord: Unremarkable Extremities: Unremarkable US/OB Anatomy w/ Transvaginal IMPRESSION: Single live intrauterine gestation with a mean gestational age of 20 weeks and 4 days. Complete placenta previa. Mild fullness of the renal pelves bilaterally measuring 0.4 cm. Reading Location: [facility]IR[facility]
== END | disposition home or self-care (01) ==
PROVIDERS: Referring Provider Obstetrics & Gynecology; Visit Provider Obstetrics & Gynecology
DX: Z36.86 Encounter for antenatal screening for cervical length (principal)
CPT/HCPCS: 76805; 76817

== ENCOUNTER → 2025-08-08 | Outpatient (CLI) | payer SELFPAY, OTHER ==
--- NOTE | 2025-08-08 11:15 | US_ITS ---
PROCEDURE: OB LIMITED WITH BIOMETRICS 08/08/2025 REASON FOR EXAM: PLACENTA PREVIA RECHECK BABY'S KIDNEYS TECHNIQUE: Procedure Code: [id number] Modality: US Procedure: OB LIMITED WITH BIOMETRICS COMPARISON: Prior study dated June 12, 2025. FINDINGS Number: 1 Position: Breech Placental Position: Complete placenta previa. Placental Abnormalities: Multiple lakes are seen within the placenta. ESTIMATED GESTATIONAL AGE: Baseline: 28 weeks and 2 days ESTIMATED DATE OF DELIVERY: Baseline: October 29, 2025. BIOPHYSICAL ASSESSMENT: Amniotic Fluid Volume: 7.7 cm Amniotic Fluid Index: 23 cm (8-24 cm normal range) Cardiac Motion: 144 beats per minute (average) Trunk and Limb Motion: Present. MATERNAL ANATOMY: Adnexa: Neither maternal ovary is successfully identified. Cervical Length (if measured): ANATOMY: Persistent mild fullness of the renal pelves bilaterally. US/OB Limited With Biometrics IMPRESSION: Complete placenta previa. Stable mild fullness of the renal pelvis bilaterally. Reading Location: [facility]
== END | disposition home or self-care (01) ==
PROVIDERS: Referring Provider Obstetrics & Gynecology; Visit Provider Obstetrics & Gynecology
DX: O44.03 Complete placenta previa NOS or without hemorrhage, third trimester (principal); Z3A.28 28 weeks gestation of pregnancy
CPT/HCPCS: 76816

== ENCOUNTER → 2025-08-08 | Outpatient (CLI) | payer OTHER, SELFPAY ==
[2025-08-08 14:03] LABS: Hematocrit 35.5 % (37-47); Hemoglobin 12.3 g/dL (12.0-15.0); Immature Granulocytes Count 0.110 X10^3/uL (0.0-0.0); Mean Corp Hgb Conc 34.6 g/dL (32-36); Mean Corpuscular Volume 90.6 fL (81-99); Mean Platelet Vol. 11.0 fl (6.2-12.0); NRBC Flagged by Analyzer 0 % (0-5); Platelet Count 157 K/mm3 (150-450); RBC Distribution Width CV 13.0 % (11.6-14.6); RBC Distribution Width SD 42.5 fl (35.1-43.9); Red Blood Count 3.92 M/mm3 (4.2-5.4); White Blood Count 8.3 K/mm3 (4.4-11.0)
[2025-08-08 15:14] LABS: Glucose Challenge Gest 1H 50g 167 mg/dL (70-140); HIV Nonreactive (Nonreactive); Syphilis Antibodies Nonreactive (Nonreactive)
== END | disposition home or self-care (01) ==
LOC: BWCLAB 12:57
PROVIDERS: Nurse Practitioner Women's Health; Referring Provider Obstetrics & Gynecology; Visit Provider Obstetrics & Gynecology
DX: O09.90 Supervision of high risk pregnancy, unspecified, unspecified trimester (principal); Z13.1 Encounter for screening for diabetes mellitus; Z3A.00 Weeks of gestation of pregnancy not specified
CPT/HCPCS: 36415; 82950; 85025; 86703; 86780